=== PATIENT | female | born 1950 | race Caucasian/White ===

== ENCOUNTER → 2018-03-20 | Outpatient (CLI) | payer MEDICARE, OTHER ==
--- NOTE | 2018-03-21 08:00 | MR ---
EXAMINATION TYPE: MR lumbar spine wo/w con DATE OF EXAM: 03/20/2018 3:58 PM COMPARISON: NONE HISTORY: LBP, BLE radic x years, prev surgery CONTRAST: The patient was injected with 11 mL intravenous Gadavist contrast. Multiplanar, MultiSpin echo imaging of the lumbar spine was performed. T12-L1: Severe disc desiccation. Disc herniation. Focal area of decreased signal posterior to the L1 vertebral segment to the left of midline measures approximately 1.1 x 0.8 cm and demonstrates periphe ral enhancement. This may reflect sequestered disc material. Central stenosis is noted at this level. L1-L2: Severe disc desiccation. Posterior disc bulge effaces the ventral thecal sac. Constriction of the thecal sac without overt stenosis at this time. Mild bilateral foraminal encroachment. Ventral sp ondylosis. Degenerative endplate marrow change. L2-L3: Severe disc desiccation. Grade 1 retrolisthesis measuring 7 mm of L2 on L3. Posterior disc bul ge. Pedicular screws are present resulting in streak artifact limiting evaluation. There is evidence of central stenosis moderate in degree. L3-L4: Postoperative changes of fusion. Pedicular screws are in place. Metallic artifact limits evalu ation. No evidence for recurrent or residual disease. No central stenosis. Foramina are poorly evalua hsarla. L4-L5: Postoperative changes of fusion. Mild retrolisthesis of L4 and L5 measuring 3.5 mm. No evidenc e for central stenosis. No recurrent or residual disc herniation identified. Pedicular screws with th e magnetic susceptibility artifact. L5-S1: Postoperative changes of fusion. Pedicular screws in place. Anterolisthesis of L5 on S1 measur ing 8.3 mm. No evidence for recurrent or residual disc herniation. No central stenosis. Ventral spond ylosis. Lumbar segments are intact. No paraspinal masses are identified. Conus medullaris has a normal appe arance. IMPRESSION: 1. Extensive postsurgical changes of fusion with alignment as discussed above. 2. Central stenosis at T12-L1 and L1-L2. Sequestered disc material is difficult to exclude posterior and towards the left at the L1 level. See above.
== END | disposition home or self-care (01) ==
LOC: RADMRIMAIN 14:50
PROVIDERS: ATTEND Family Medicine
DX: M48.05 Spinal stenosis, thoracolumbar region (principal); G89.4 Chronic pain syndrome
CPT/HCPCS: 72158; A9581

== ENCOUNTER → 2018-06-17 | Outpatient (CLI) | payer MEDICARE, OTHER ==
[2018-05-19 14:33] VITALS: BMI 39.6
[2018-06-17 13:25] VITALS: BP 147/80; PULSE 74; RESP 18; TEMP 98.1
--- NOTE | 2018-06-17 14:00 | P.CONS ---
History of Present Illness - Reason for Consult Consult date: 06/17/18 - Chief Complaint Lower back and legs pain - History of Present Illness This is a 68-year-old female with history of multiple back surgeries with a total of 5 on the lumbar spine. The patient has chronic lower back pain with radiation to the lower extremities down to both calves. This pain got worse since March of this year. She does have history of urinary incontinence and weakness in the lower extremities. The pain also wakes her up at night and she takes 4 pills of [place] 10 every day for this pain. The pain gets worse with any activity especially walking. This pain has been limiting her activities significantly. 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 She also takes Plavix for peripheral vascular disease. The patient failed to respond to physical therapy previously she did receive interventional pain procedures before which helped her temporarily. Review of Systems Constitutional: Reports weight gain Cardiovascular: Reports leg edema Respiratory: Reports dyspnea Genitourinary: Reports mixed incontinence Musculoskeletal: Reports as per HPI Past Medical History Past Medical History: Blood Disorder, COPD, Diabetes Mellitus, GERD/Reflux, Hyperlipidemia, Hypertension Additional Past Medical History / Comment(s): BACK PAIN, DDD, HX anemia, History of Any Multi-Drug Resistant Organisms: None Reported Past Surgical History: Appendectomy, Back Surgery, Bowel Resection, Cholecystectomy, Hysterectomy, Joint Replacement, Orthopedic Surgery Additional Past Surgical History / Comment(s): 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, 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, HAS METAL IN BACK, KRISTINE CATARACTS, KRISTINE HIP REPLACEMENTS, KRISTINE HANDS TRIGGER FINGER SX'S Past Anesthesia/Blood Transfusion Reactions: No Reported Reaction Past Psychological History: Depression Smoking Status: Current every day smoker Past Alcohol Use History: None Reported Additional Past Alcohol Use History / Comment(s): SMOKES 1 PPD FROM AGE 20 1970 Past Drug Use History: None Reported - Past Family History Mother Family Medical History: Cancer, Coronary Artery Disease (CAD) Additional Family Medical History / Comment(s): MOTHER HAD STOMACH CANCER Father Family Medical History: Coronary Artery Disease (CAD), Diabetes Mellitus Brother(s) Family Medical History: Cancer Additional Family Medical History / Comment(s): BROTHER HAD PROSTATE CANCER Medications and Allergies Home Medications Medication Instructions Recorded Confirmed Type Albuterol Nebulized [Ventolin 2.5 mg INHALATION Q6H 06/17/14 06/17/18 History Nebulized] Albuterol Sulfate [Proair Hfa] 2 puff INHALATION Q6HR PRN 06/17/14 06/17/18 History Aspirin 81 mg PO DAILY 06/17/14 06/17/18 History Clopidogrel [Plavix] 75 mg PO DAILY 06/17/14 06/17/18 History DULoxetine HCL [Cymbalta] 60 mg PO DAILY 06/17/14 06/17/18 History Famotidine [Pepcid] 20 mg PO DAILY 06/17/14 06/17/18 History Furosemide [Lasix] 40 mg PO BID 06/17/14 06/17/18 History HYDROcodone/APAP 10-325MG [[place] 1 each PO Q4HR PRN 06/17/14 06/17/18 History 10-325] Insulin Aspart [NovoLOG Flexpen] 1 unit SQ [facility] 06/17/14 06/17/18 History Insulin Detemir [Levemir Flexpen] 50 unit SQ 06/17/14 06/17/18 History Metolazone [Zaroxolyn] 2.5 mg PO DAILY 06/17/14 06/17/18 History Metoprolol Tartrate [Lopressor] 100 mg PO BID 06/17/14 06/17/18 History OLANZapine [ZyPREXA] 15 mg PO DAILY 06/17/14 06/17/18 History Potassium Chloride [Klor-Con 20] 20 meq PO TID 06/17/14 06/17/18 History Simvastatin [Zocor] 40 mg PO HS 06/17/14 06/17/18 History Solifenacin Succinate [Vesicare] 5 mg PO DAILY 06/17/14 06/17/18 History lamoTRIgine [LaMICtal] 150 mg PO DAILY 06/17/14 06/17/18 History rOPINIRole HCL [Requip] 2 mg PO BID 06/17/14 06/17/18 History Pregabalin [Lyrica] 25 mg PO BID 06/17/18 06/17/18 History Allergies Allergy/AdvReac Type Severity Reaction Status Date / Time buprenorphine HCl Allergy Unknown Verified 06/17/18 13:06 [From Buprenex] codeine Allergy Unknown Verified 07/24/18 13:06 latex Allergy Unknown Verified 06/17/18 13:06 morphine Allergy Unknown Verified 06/17/18 13:06 Penicillins Allergy Unknown Verified 06/17/18 13:06 prochlorperazine maleate Allergy Unknown Verified 06/17/18 13:06 [From Compazine] prochlorperazine edisylate AdvReac STOMACH Verified 06/17/18 13:06 [From Compazine] PAIN ivp dye Allergy Unknown Uncoded 06/17/18 13:06 Physical Exam Vitals: Vital Signs Temp Pulse Resp BP Pulse Ox 06/17/18 13:16 98.1 F 74 18 147/80 94 L Intake and Output 06/16/18 06/17/18 06/17/18 22:59 06:59 14:59 Other: Weight 104.326 kg - Constitutional General appearance: morbidly obese - EENT Eyes: PERRLA - Respiratory Respiratory: bilateral: CTA - Cardiovascular Rhythm: regular Heart sounds: normal: S1, S2 - Neurologic Neurologic: CNII-XII intact - Musculoskeletal Neuro exam of the lower extremities showed decreased muscle strength to 4 out of 5 in general. Mid tarsal amputation of the left foot and big toe amputation on the right foot. Erythema in the left leg below the knee level. Swelling in both legs with pitting edema. Straight leg raising test positive at 45 bilaterally. Deep tendon reflexes decreased but symmetrical and she has intact ankle reflexes bilaterally. She has well-healed scar from her previous back surgery. Tenderness is positive bilaterally in the lumbar and lower thoracic paravertebral musculature/ Decreased range of motion of the lumbar spine with more pain with flexion than with extension. The patient was not able to lie on her back because of her pain and that's why I did not do Carlos Eduardo's test, however she has no tenderness around the sacroiliac joints. - Psychiatric Psychiatric: A&O x's 3, appropriate affect, intact judgment & insight Assessment and Plan Assessment: This is a 68-year-old morbidly obese female with multiple comorbidities including diabetes, COPD, peripheral vascular disease. The patient had amputations on both feet due to her peripheral vascular disease rather than her diabetic neuropathy. She has lumbar failed back surgery syndrome. Severe lumbar disc desiccation and degeneration above the surgical level. Failed to respond to physical therapy previously. Chronic urinary incontinence. Tobacco abuse Plan: The patient may benefit from getting caudal epidural steroid injection with lysis of adhesions the future however I asked the patient to check with her physician about the safety of holding her Plavix for 7-10 days before the procedure. She also may be a candidate for spinal cord stimulation, however her chronic treatment with Plavix would put her at high risk for spinal hematoma . The patient was encouraged to quit smoking. We we will schedule the patient for the above-mentioned procedure if it's okay with her primary care physician to hold the Plavix for 7-10 days. I thank you for the consultation.
== END | disposition home or self-care (01) ==
LOC: PNWHC3 05-21 13:00
PROVIDERS: ATTEND Anesthesiology
DX: M96.1 Postlaminectomy syndrome, not elsewhere classified (principal); E66.01 Morbid (severe) obesity due to excess calories; J44.9 Chronic obstructive pulmonary disease, unspecified; E11.51 Type 2 diabetes mellitus with diabetic peripheral angiopathy without gangrene; Z89.432 Acquired absence of left foot; Z89.431 Acquired absence of right foot; R32 Unspecified urinary incontinence; F17.200 Nicotine dependence, unspecified, uncomplicated; Z79.899 Other long term (current) drug therapy; Z79.891 Long term (current) use of opiate analgesic; Z79.4 Long term (current) use of insulin; Z88.5 Allergy status to narcotic agent; Z91.040 Latex allergy status; Z88.0 Allergy status to penicillin; Z88.8 Allergy status to other drugs, medicaments and biological substances; Z91.041 Radiographic dye allergy status
CPT/HCPCS: 99211

== ENCOUNTER 2018-07-02 06:48 | Day surgery (SDC) | payer MEDICARE, OTHER ==
[2018-06-25 13:53] VITALS: BMI 39.6
[~2018-07-02 06:48] MED LIST: LACTATED RINGERS 1,000 ML IV SCH
[2018-07-02 07:35] VITALS: TEMP 98
[2018-07-02 07:39] LABS: Glucose,Whole Blood 119 mg/dL (75-99)
[2018-07-02] MEDS ORDERED: LIDOCAINE 1% 20 ML VIAL (10MG/ML) FOR IV START INTRADERMA ONE (07:42)
--- NOTE | 2018-07-02 08:10 | P.PCN ---
Date of Procedure: 07/02/18 Procedure(s) Performed: PREOPERATIVE DIAGNOSIS: Lumbar post laminectomy syndrome. POSTOPERATIVE DIAGNOSIS: Lumbar post laminectomy syndrome. PROCEDURE: 1. Caudal epidural steroid injection under fluoroscopic guidance. ANESTHESIA: Local with 1% lidocaine 5ml for subcutaneous infiltrations and IV versed 2 mg ,and fentanyl 100 mcg EBL: None. PROCEDURE INDICATION: The patient with neuropathic pain radiating distally returns for caudal epidural steroid injection. PROCEDURE DESCRIPTION: The patient was seen and identified in the preoperative area. Risks, benefits, complications, and alternatives were discussed with the patient. The patient agreed to proceed with the procedure and signed the consent. IV was started, and vital signs were stable. Patient was taken to the OR and time out was completed. The patient was placed in the prone position on procedure table and a pillow was placed under the abdomen to reduce lumbar lordosis. The lumbosacral area was prepped and draped in the usual sterile fashion. Critical pause was taken. Vital signs were closely monitored during the procedure. Using lateral fluoroscopy the anterior-posterior plates of the sacrum were identified and the skin and deeper tissues corresponding into sacrococcygeal ligament were anesthetized using approximately 3 mL of 1% lidocaine. Then under fluoroscopy, a 3-1/2-inch 20-gauge Tuohy epidural needle was guided through the sacrococcygeal ligament, and into the epidural space. Again after negative aspiration for CSF, blood, and with no paresthesias, Depo medrole 40mg, 2ml of 1% preservative free Lidocaine with 6 ml of preservative free normal saline. Needle was withdrawn intact. Skin was cleansed, and bandage was applied. Epidurogram was not done because patient had ALLERGY to IVP dye COMPLICATIONS: None DISPOSITION / PLANS: The patient was placed in a supine position and transferred to the recovery area in a stable condition for observation and was discharged from the recovery room after meeting discharge criteria. Home discharge instructions given to the patient by the staff. The patient was reexamined prior to discharge. The patient will schedule a follow up in the clinic in 2-4 weeks.
[2018-07-02] MEDS ORDERED: IV FLUID CONTINUATION 1,000 ML IV ONE (08:18)
[2018-07-02 08:25] VITALS: RESP 18
[2018-07-02 09:23] VITALS: BP 147/67
[2018-07-02 10:07] VITALS: PULSE 72
--- NOTE | 2018-07-02 10:19 | FL ---
Fluoroscopy HISTORY: Pain 4 seconds fluoroscopy time supplied to the referring clinician. 2 intraoperative C-arm images docume nt the procedure. See dictated report from anesthesia.
== END 2018-07-02 11:34 | disposition home or self-care (01) ==
LOC: ORPAIN 06:48
PROVIDERS: ATTEND Specialist
DX: M96.1 Postlaminectomy syndrome, not elsewhere classified (principal); M54.16 Radiculopathy, lumbar region; I10 Essential (primary) hypertension; E11.9 Type 2 diabetes mellitus without complications; Z91.040 Latex allergy status; Z91.041 Radiographic dye allergy status; Z88.5 Allergy status to narcotic agent; Z88.0 Allergy status to penicillin; Z79.02 Long term (current) use of antithrombotics/antiplatelets
CPT/HCPCS: 62323; J2250; J1030; J3010

== ENCOUNTER 2018-07-16 07:27 | Day surgery (SDC) | payer MEDICARE, OTHER ==
[2018-07-09 16:32] VITALS: BMI 39.9
[2018-07-16] MEDS ORDERED: LIDOCAINE 1% 20 ML VIAL (10MG/ML) FOR IV START INTRADERMA ONE (08:21)
[2018-07-16 08:29] VITALS: TEMP 97
[2018-07-16 08:34] LABS: Glucose,Whole Blood 114 mg/dL (75-99)
--- NOTE | 2018-07-16 09:12 | P.PCN ---
Date of Procedure: 07/16/18 Description of Procedure: Procedure(s) Performed: PREOPERATIVE DIAGNOSIS: Lumbar post laminectomy syndrome. POSTOPERATIVE DIAGNOSIS: Lumbar post laminectomy syndrome. PROCEDURE: 1. Caudal epidural steroid injection under fluoroscopic guidance. 2. Epidural Lysis of adhesions ANESTHESIA: Local with 1% lidocaine 3 ml for subcutaneous infiltrations and IV conscious sedation versed 2 mg ,and fentanyl 100 mcg EBL: None. PROCEDURE INDICATION: The patient with neuropathic pain radiating distally returns for caudal epidural steroid injection. PROCEDURE DESCRIPTION: The patient was seen and identified in the preoperative area. Risks, benefits, complications, and alternatives were discussed with the patient. The patient agreed to proceed with the procedure and signed the consent. IV was started, and vital signs were stable. Patient was taken to the OR and time out was completed. The patient was placed in the prone position on procedure table and a pillow was placed under the abdomen to reduce lumbar lordosis. The lumbosacral area was prepped and draped in the usual sterile fashion. Critical pause was taken. Vital signs were closely monitored during the procedure. Using lateral fluoroscopy the anterior-posterior plates of the sacrum were identified and the skin and deeper tissues corresponding into sacrococcygeal ligament were anesthetized using approximately 3 mL of 1% lidocaine. Then under fluoroscopy, a 3-1/2-inch 20-gauge Tuohy epidural needle was guided through the sacrococcygeal ligament, and into the epidural space. A Rac catheter was inserted through the 2 we epidural needle for confirmation of proper placement considering IV dye could not be used. Once confirmation was confirmed multiple passes were made with the Rac catheter and lysis of adhesions was performed. Again after negative aspiration for CSF, blood, and with no paresthesias, Depo medrole 40mg, 2ml of 1% preservative free Lidocaine with 6 ml of preservative free normal saline. Needle was withdrawn intact. Skin was cleansed, and bandage was applied. Epidurogram was not done because patient had ALLERGY to IVP dye COMPLICATIONS: None DISPOSITION / PLANS: The patient was placed in a supine position and transferred to the recovery area in a stable condition for observation and was discharged from the recovery room after meeting discharge criteria. Home discharge instructions given to the patient by the staff. The patient was reexamined prior to discharge. The patient will schedule a follow up in the clinic in 2-4 weeks.
[2018-07-16] MEDS ORDERED: IV FLUID CONTINUATION 1,000 ML IV ONE ×2 (09:17)
[2018-07-16 09:46] VITALS: BP 138/78; PULSE 88; RESP 20
--- NOTE | 2018-07-16 10:13 | FL ---
EXAMINATION TYPE: FL guided pain mgmt statistic DATE OF EXAM: 07/16/2018 HISTORY: Flouroscopy time 24 seconds of fluoroscopy provided. IMPRESSION: 1. Fluoroscopy time.
== END 2018-07-16 10:00 | disposition home or self-care (01) ==
LOC: ORPAIN 07:27
PROVIDERS: ATTEND Anesthesiology
DX: M96.1 Postlaminectomy syndrome, not elsewhere classified (principal); G89.29 Other chronic pain; F17.210 Nicotine dependence, cigarettes, uncomplicated; E11.42 Type 2 diabetes mellitus with diabetic polyneuropathy; F32.9 Major depressive disorder, single episode, unspecified; J44.9 Chronic obstructive pulmonary disease, unspecified; K21.9 Gastro-esophageal reflux disease without esophagitis; E78.5 Hyperlipidemia, unspecified; I10 Essential (primary) hypertension; Z82.49 Family history of ischemic heart disease and other diseases of the circulatory system; Z90.49 Acquired absence of other specified parts of digestive tract; Z96.643 Presence of artificial hip joint, bilateral; Z79.82 Long term (current) use of aspirin; Z79.02 Long term (current) use of antithrombotics/antiplatelets; Z79.899 Other long term (current) drug therapy; Z79.4 Long term (current) use of insulin; Z88.5 Allergy status to narcotic agent; Z88.0 Allergy status to penicillin; Z88.8 Allergy status to other drugs, medicaments and biological substances; Z91.041 Radiographic dye allergy status; Z91.040 Latex allergy status; Z89.411 Acquired absence of right great toe; Z89.432 Acquired absence of left foot; E11.51 Type 2 diabetes mellitus with diabetic peripheral angiopathy without gangrene; M51.36 Other intervertebral disc degeneration, lumbar region
CPT/HCPCS: 62264; J2250; J3301; J3010; C1894; 62323

== ENCOUNTER → 2018-07-23 | Outpatient (CLI) | payer MEDICARE, OTHER ==
[2018-07-23 11:57] LABS: Anisocytosis Slight; HCT 44.5 % (34.0-46.0); HGB 13.6 gm/dL (11.4-16.0); Hypochromasia Slight; MCHC 30.7 g/dL (31.0-37.0); MCV 91.2 fL (80.0-100.0); Mean Platelet Volume 6.4; Platelet Count 298 k/uL (150-450); RBC 4.87 m/uL (3.80-5.40); WBC 10.5 k/uL (3.8-10.6)
[2018-07-23 12:15] LABS: Potassium 4.7 mmol/L (3.5-5.1)
== END | disposition home or self-care (01) ==
LOC: LABPAT 11:37
PROVIDERS: ATTEND Internal Medicine Interventional Cardiology
DX: Z01.812 Encounter for preprocedural laboratory examination (principal); I70.213 Atherosclerosis of native arteries of extremities with intermittent claudication, bilateral legs; I10 Essential (primary) hypertension; E78.1 Pure hyperglyceridemia
CPT/HCPCS: 36415; 80051; 82565; 84520; 85027

== ENCOUNTER → 2018-08-19 | Outpatient (CLI) | payer MEDICARE, OTHER ==
[2018-08-19 14:12] VITALS: BP 132/84; PULSE 73; RESP 18
--- NOTE | 2018-08-19 14:46 | P.PAINPG ---
Subjective Progress Note Date: 08/19/18 This is a 68 years old female with a chronic history of severe low back pain diagnosed with failed back surgery syndrome, we have done: Epidural steroid injection with lysis of epidural adhesions patient reported she had 0 benefits from the injection, he continued to have severe low back pain with radiating to the buttock area bilaterally, and also she is having mid back pain with radiation to the anterior abdominal wall , pain is severe constant interfering with her quality of life, also patient feels that her lower extremity weakness because of this intensity of the pain, she denies any fever or night sweats, but she has swelling and bluish discoloration in the lower extremity patient was evaluated by the audio visual tech, and according to the patient ultrasound was negative for any clot, also patient was started on antibiotics to treat cellulitis in the lower extremity, and there was minimal improvement, and the bluish discoloration of the lower extremity She continues to use Lyrica 25 mg twice a day and [place] 10/320 q 6 hours getting prescription refills from her primary care Objective - Vital Signs Vital signs: Vital Signs Temp Pulse 73 08/19/18 14:03 Resp 18 08/19/18 14:03 BP 132/84 08/19/18 14:03 Pulse Ox 92 L 08/19/18 14:03 Intake & Output 08/18/18 08/19/18 08/19/18 18:59 06:59 18:59 Weight 108.862 kg - Exam Physical Examinations : 1-Constitutiona : Cooperative , not in acute distress . 2-HEENT : nech ; supple , no Lymphadenopathy , normal thyroid size . eyes : no ptosis , no icterus , no photophobia . ENT : normal of hearing , normal oropharynx , no Thrush . 3- Respiratory : Chest clear to auscultations Bilaterally , no wheezing , no Rhonchi . 4- Cardiovascular : regular rate and rhythem , S1 , S2 , no S3 , no S4. 5- Gastrointestinal : abdomen soft no tenderness , bowel sounds , no organomegally . 6- Genitourinary : Defferred . 7- neurologic : Cranial nerve II to XII intact , no focal neurological deffecit . 8-psychatric : alert , oriented X 3 , appropriate affect , intact judgment and insight . 9-Lymphatic : no Lymphadenopathy . 10- musculoskeltal : Lumber spine moter stegnth lower extremities ,thigh and legs 5/5 Right side , 5/5 Left side deep tendon reflexes : normal Knee Jerk , normal ankle Jerk positive lumber facet Loading Test Range of motion of the lumbar spine Flexion 30 degrees, extension 10 degrees strait leg raising test , positive at 30 degree Fabere test positive RT and positive LT . Sever tenderness over the Sacroiliac joint on the R and L sides Assessment and Plan Plan: Assessment and plan= Chronic severe low back pain secondary to failed back surgery syndrome, L2 - 3 , L3- 4 lumbar radiculitis , bilateral sacroiliitis Patient had no benefit after Caudal Epidural steroid injections under fluoroscopy guidance. Patient could benefit from bilateral sacroiliac joint steroid injections under fluoroscopy guidance procedure risk and benefits and alternatives discussed with the patient she agreed with proceeding , patient should continue her current medications Lyrica 25 mg twice a day, [place] 10/325 prescription from primary care Time with Patient: Less than 30 PQRS Measure Charge Sheet Measure #130: Documentation of Current Meds in Medical Chart: Patient's medications documented in chart Measure #226: Tobacco Use: Screen & Cessation Intervention: Pt screened for tobacco use AND intervention given Measure #111: Pneumonia Vaccination: Pneumococcal vaccine administered or previously received Measure #47: Advance Care Plan: Advance care planning discussed & documented, pt chose/unable to give Measure #412: Opioid Treatment Agreement: No documentation of signed opioid treatment agreement Measure #408: Opioid Therapy Follow-up Evaluation: Patient had NO f/u eval minimum every 3 months during opioid therapy Measure #317: Preventitive Care & Scrn High Bld Press & F/U: Normal blood pressure, f/u not required Measure #128: Body Mass Index (BMI) Screening & Follow-up: BMI documented ABOVE normal parameters - f/u documented Measure #131: Pain Assessment & Follow-up: Pain positive & plan documented, Follow-up scheduled Measure #431: Unhealthy Alcohol Use Preventative Care & Scrn: Patient not identified as an unhealthy alcohol user PQRS Narrative: Smoking Status Current every day smoker Do You Want the Pneumonia Vaccine Up to Date Vaccine AT THIS TIME? Blood Pressure 132/84 Pain Intensity [Bilateral 8 Lower Back] Scale Used Numeric (1 - 10) Hx Alcohol Use (MH) No Home Medications: Ambulatory Orders Aspirin 81 mg PO DAILY 06/17/14 Clopidogrel [Plavix] 75 mg PO DAILY 06/17/14 DULoxetine HCL [Cymbalta] 60 mg PO DAILY 06/17/14 Furosemide [Lasix] 40 mg PO DAILY 06/17/14 HYDROcodone/APAP 10-325MG [[place] 10-325] 1 each PO Q6HR PRN 06/17/14 Metoprolol Tartrate [Lopressor] 100 mg PO BID 06/17/14 OLANZapine [ZyPREXA] 15 mg PO DAILY 06/17/14 Potassium Chloride [Klor-Con 20] 20 meq PO TID 06/17/14 Simvastatin [Zocor] 40 mg PO HS 06/17/14 lamoTRIgine [LaMICtal] 100 mg PO DAILY 06/17/14 rOPINIRole HCL [Requip] 0.25 mg PO BID 06/17/14 Dicyclomine [Bentyl] 20 mg PO QID 06/17/18 Fluticasone Nasal Lewis [Flonase Nasal Lewis] 2 spray EA NOSTRIL DAILY 06/17/18 Insulin Glargine [Lantus] 70 units SQ QAM 06/17/18 Loratadine [Claritin] 10 mg PO DAILY 06/17/18 Montelukast [Singulair] 10 mg PO DAILY 06/17/18 Omeprazole [PriLOSEC] 20 mg PO DAILY 06/17/18 Pregabalin [Lyrica] 25 mg PO BID 06/17/18 amLODIPine [Norvasc] 10 mg pe PO BID 06/17/18 sitaGLIPtin [Januvia] 100 mg PO DAILY 06/17/18 Fluticasone/Vilanterol [Breo Ellipta 100-25 Mcg Inhaler] 1 inhalation PO HS 12/12 Insulin Aspart [NovoLOG] 10 units SQ TID-W/MEALS 06/25/18 Controlled Substance Measures - Controlled Substance Measures Is patient prescribed a controlled substance at discharge?: No When asked, does pt state using other controlled substances?: No If prescribed controlled substance>3 days was MAPS reviewed?: No If Rx opioid, was Start Talking consent form obtained?: No If opioid is for acute pain is fill amount 7 days or less?: No Was information provided regarding opioid addiction?: No
== END ==
LOC: PNWHC3 13:36
PROVIDERS: ATTEND Specialist
DX: G89.29 Other chronic pain (principal); M96.1 Postlaminectomy syndrome, not elsewhere classified; M54.16 Radiculopathy, lumbar region; M46.1 Sacroiliitis, not elsewhere classified; F17.200 Nicotine dependence, unspecified, uncomplicated; Z79.899 Other long term (current) drug therapy; Z79.891 Long term (current) use of opiate analgesic; Z79.82 Long term (current) use of aspirin; Z79.4 Long term (current) use of insulin
CPT/HCPCS: 99211

== ENCOUNTER → 2018-09-15 | Day surgery (SDC) | payer MEDICARE, OTHER ==
[2018-09-11 11:10] VITALS: BMI 39.9
[~2018-09-15] MED LIST changes: -LACTATED RINGERS 1,000 ML IV SCH; +SODIUM CHLORIDE 0.9% 500 ML 500 ML IV SCH
[2018-09-15 08:31] VITALS: RESP 18; TEMP 98
[2018-09-15 08:38] LABS: Glucose,Whole Blood 107 mg/dL (75-99)
--- NOTE | 2018-09-15 09:11 | P.PCN ---
Date of Procedure: 09/15/18 Procedure(s) Performed: Procedure= bilateral sacral iliac joints steroid injection under fluoroscopy guidance Preoperative diagnosis= 1- Failed back surgery syndrome lumbar area 3-lumbar facet arthropathy Postoperative diagnosis= same as preoperative diagnosis Condition= stable Anesthesia= moderate sedation with intravenous Versed 2 mg , and fentanyl 100 micrograms and local infiltration with lidocaine 1% 4 mL Indication for the procedure= patient complaining of low back pain , examination was positive for severe tenderness over the sacroiliac joints bilaterally and patient diagnosed with sacroiliitis, for this reason he/ she was good candidate for sacroiliac joint steroid injection. Description of the procedure= procedure risk and benefits discussed with the patient, including but not limited, risk of infection and bleeding, and ALLERGIC reaction to the medication and not complete pain relief and patient agreed with the preceding patient taken to the operating room, placed in prone position or standard monitors applied to the patient then after induction of anesthesia back prepped with chlorhexidine 3 times , Then under strict sterile technique, first I did the right sacroiliac joint the which was identified under fluoroscopy guidance been local infiltration of the skin and subcu interstitial with lidocaine 1% then 22-gauge Quincke Needle advanced slowly under fluoroscopy and placed in the right sacroiliac joint needle placement confirmed with AP and oblique and lateral view and after appropriate needle placement confirmed and after negative aspiration, or heme , then Ropivacaine 0.5% 3 mL, and 20 mg of Kenalog mixed together and injected in the right sacroiliac joint after negative aspiration patient tolerated the procedure well without any complication. Then the left sacroiliac joint steroid injection done under strict sterile technique local infiltration of the skin and subcu interstitial at the location of the left sacroiliac joint then a 22-gauge Quincke Needle advanced slowly under fluoroscopy time placed in the left sacroiliac joint, needle placement confirmed with AP and oblique and lateral view then after appropriate needle placement confirmed and after negative aspiration 0.5% Marcaine 3 mL and 20 mg of Kenalog injected in the left sacroiliac joint after negative aspiration patient tolerated the procedure well that any complications and she will follow up in clinic 3 weeks
--- NOTE | 2018-09-15 09:33 | FL ---
EXAMINATION TYPE: FL guided pain mgmt statistic DATE OF EXAM: 09/15/2018 HISTORY: Flouroscopy time 5 seconds of fluoroscopy provided. IMPRESSION: 1. Fluoroscopy time.
[2018-09-15 09:34] VITALS: PULSE 76
[2018-09-15 09:39] VITALS: BP 130/63
== END ==
LOC: ORPAIN 07:36
PROVIDERS: ATTEND Specialist
DX: M96.1 Postlaminectomy syndrome, not elsewhere classified (principal); M46.96 Unspecified inflammatory spondylopathy, lumbar region; I25.10 Atherosclerotic heart disease of native coronary artery without angina pectoris; I10 Essential (primary) hypertension; J44.9 Chronic obstructive pulmonary disease, unspecified; E11.9 Type 2 diabetes mellitus without complications; Z88.5 Allergy status to narcotic agent; Z88.0 Allergy status to penicillin; Z91.041 Radiographic dye allergy status; Z91.040 Latex allergy status; Z79.02 Long term (current) use of antithrombotics/antiplatelets
CPT/HCPCS: J2250; J1030; J3301; G0260

== ENCOUNTER → 2018-10-21 | Outpatient (CLI) | payer MEDICARE, OTHER ==
--- NOTE | 2018-10-21 13:02 | CT ---
EXAMINATION TYPE: CT soft tissue neck w con DATE OF EXAM: 10/21/2018 COMPARISON: None HISTORY: Swelling to left side of neck marked by BB. CT DLP: 678.4 mGycm CONTRAST: CT scan of the neck is performed with IV Contrast, patient injected with 100 mL of Isovue M300. Contrast enhanced CT of the neck was performed from the skull base through the lung apices. BB marker is placed at the site of clinical concern which corresponds to the left parotid gland. AIRWAY: The supraglottic, glottic, and subglottic portions of the airway appear patent and free of mass. SALIVARY GLANDS: At the site of clinical concern which corresponds to the lower pole of the parotid gland other is a lipoma measuring 3.2 x 2.9 cm. No intraparotid mass is appreciated at this time. The submandibular glands are free of mass or inflammatory process. THYROID GLAND: No nodules or masses seen. LYMPH NODES: No adenopathy seen greater than 1cm. LUNG APICES: No nodule or mass is seen. OTHER: Vascular structures are patent. No significant degenerative change of the cervical spine. N o abscess seen. IMPRESSION: 1. At the site of clinical concern which corresponds to the lower pole of the parotid gland there is an extraparotid lipoma noted. No solid masses appreciated. No evidence for adenopathy.
== END ==
LOC: RADCTMAIN 10:55
PROVIDERS: ATTEND Family Medicine
DX: R59.0 Localized enlarged lymph nodes (principal)
CPT/HCPCS: 82565; 84520; 70491; 36415; Q9967

== ENCOUNTER 2019-02-05 18:54 | Inpatient (IN) | payer MEDICARE, OTHER ==
[2019-02-05] MEDS ORDERED: SODIUM CHLORIDE 0.9% 500 ML 500 ML IV STA (19:12)
[2019-02-05] MEDS ORDERED: ONDANSETRON 4 MG/2 ML VIAL IVP STA (19:12)
[2019-02-05] MEDS ORDERED: MAG HYDROX/AL HYDROX/SIMETH 30 ML, HYOSCYAMINE ELIXIR 10 ML, CIMETIDINE HCL 300 MG, LID... PO STA ×4 (19:24)
[2019-02-05] MEDS ORDERED: MORPHINE SULFATE 4 MG/ML SYRINGE IVP PRN (19:24)
--- NOTE | 2019-02-05 19:27 | ED ---
General Adult HPI - General Chief complaint: Abdominal Pain Stated complaint: abdominal pain/weakness/dizziness Time Seen by Provider: 02/05/19 19:12 Source: patient Mode of arrival: ambulatory Limitations: no limitations - History of Present Illness Initial comments: Dictation was produced using [employer] dictation software. please excuse any grammatical, word or spelling errors. Chief Complaint: 68-year-old female past medical history of COPD, diabetes, dyslipidemia, chronic back pain presents with epigastric abdominal pain. History of Present Illness: 68-year-old female. She presents today with progressive epigastric abdominal pain. Reports that her symptoms have slowly progressed until today. Patient states that earlier today she tried to eat, and after the fourth bite she experience severe abdominal pain. States that she has continuous pain. Denies any history of peptic ulcer disease. No vomiting however she does feel slightly nauseated. No diarrhea. She had a normal bowel movement yesterday. Patient states that when she is not eating she does feel some symptoms however her symptoms are severely exacerbated with eating. Denies any fever, chills, constitutional symptoms. He does report 8 pound weight loss unintentionally sick very to lack of eating. The ROS documented in this emergency department record has been reviewed and confirmed by me. Those systems with pertinent positive or negative responses have been documented in the HPI. All other systems are other negative and/or noncontributory. PHYSICAL EXAM: General Impression: Alert and oriented x3, acute distress secondary to pain HEENT: Normocephalic atraumatic, extra-ocular movements intact, pupils equal and reactive to light bilaterally, mucous membranes moist. Cardiovascular: Heart regular rate and rhythm, S1&S2 audible, no murmurs, rubs or gallops Chest: Lungs clear to auscultation bilaterally, no rhonchi, no wheeze, no rales Abdomen: Bowel sounds present, abdomen soft, midline abdominal scar, mild epigastric tenderness to palpation non-distended, no organomegaly Musculoskeletal: Pulses present and equal in all extremities, no peripheral edema Motor: no focal deficits noted Neurological: CN II-XII grossly intact, no focal motor or sensory deficits noted Skin: Intact with no visualized rashes Psych: Normal affect and mood ED course: 68yo female presents with chief complaint of epigastric abdominal pain. She does report prandial pain. All signs upon arrival are within acceptable limits. Patient denies any dark stools or blood in her stools. No vomiting. Laboratory evaluation obtained. Leukocytosis of 13.9, hemoglobin 16.3. Coag panel unremarkable. Metabolic panel shows no acute findings. Urinalysis negative. Patient given GI cocktail with slight improvement of symptoms however she does feel that her symptoms are persistent. She still feels fairly uncomfortable. Patient given IV analgesia. At this point patient's symptoms are likely secondary to symptomatic is stridorous versus peptic ulcer disease. Her decision-making with patient that she would benefit from upper endoscopy. She would prefer to be admitted observation with GI consultation. Patient started on Protonix. EKG interpretation: Ventricular rate 64, normal sinus rhythm,. Interval 154, care is 82, QTc 435. No MA prolongation, no QTC prolongation, There is T-wave inversion seen on precordial leads not apparent on most recent excessive EKG of 06/17/2014. - Related Data Home Medications Medication Instructions Recorded Confirmed Clopidogrel [Plavix] 75 mg PO DAILY 06/17/14 10/06/18 DULoxetine HCL [Cymbalta] 60 mg PO DAILY 06/17/14 10/06/18 Furosemide [Lasix] 40 mg PO DAILY 06/17/14 10/06/18 HYDROcodone/APAP 10-325MG [[place] 1 each PO Q6HR PRN 06/17/14 10/06/18 10-325] Metoprolol Tartrate [Lopressor] 100 mg PO BID 06/17/14 10/06/18 OLANZapine [ZyPREXA] 15 mg PO DAILY 06/17/14 10/06/18 Potassium Chloride [Klor-Con 20] 40 meq PO BID 06/17/14 10/06/18 Simvastatin [Zocor] 40 mg PO HS 06/17/14 10/06/18 lamoTRIgine [LaMICtal] 100 mg PO DAILY 06/17/14 10/06/18 rOPINIRole HCL [Requip] 0.25 mg PO BID 06/17/14 10/06/18 Dicyclomine [Bentyl] 20 mg PO QID 06/17/18 10/06/18 Fluticasone Nasal [place] [Flonase 2 spray EA NOSTRIL DAILY 06/17/18 10/06/18 Nasal [place]] Insulin Glargine [Lantus] 70 units SQ QAM 06/17/18 10/06/18 Loratadine [Claritin] 10 mg PO DAILY 06/17/18 10/06/18 Montelukast [Singulair] 10 mg PO DAILY 06/17/18 10/06/18 Omeprazole [PriLOSEC] 20 mg PO DAILY 06/17/18 10/06/18 Pregabalin [Lyrica] 25 mg PO BID 06/17/18 10/06/18 amLODIPine [Norvasc] 10 mg PO BID 06/17/18 10/06/18 sitaGLIPtin [Januvia] 100 mg PO DAILY 06/17/18 10/06/18 Fluticasone/Vilanterol [Breo 1 inhalation PO HS 06/25/18 10/06/18 Ellipta 100-25 Mcg Inhaler] Insulin Aspart [NovoLOG] 10 units SQ TID-W/MEALS 06/25/18 10/06/18 Allergies Allergy/AdvReac Type Severity Reaction Status Date / Time buprenorphine HCl Allergy Rash/Hives Verified 02/05/19 20:27 [From Buprenex] Iodinated Contrast- Oral and Allergy Rash/Hives Verified 02/05/19 20:27 IV Dye latex Allergy skin Verified 02/05/19 20:27 cracks and bleeds Penicillins Allergy Anaphylaxis Verified 02/05/19 20:27 prochlorperazine maleate Allergy Anaphylaxis Verified 02/05/19 20:27 [From Compazine] codeine AdvReac Nausea & Verified 02/05/19 20:27 Vomiting morphine AdvReac Abdominal Verified 02/05/19 20:27 Pain prochlorperazine edisylate AdvReac Anaphylaxis Verified 02/05/19 20:27 [From Compazine] ivp dye Allergy Rash/Hives Uncoded 02/05/19 19:10 Review of Systems ROS Statement: Those systems with pertinent positive or pertinent negative responses have been documented in the HPI. ROS Other: All systems not noted in ROS Statement are negative. 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, HAS METAL IN BACK, KRISTINE CATARACTS, KRISTINE HIP REPLACEMENTS, KRISTINE HANDS TRIGGER FINGER SX'S; Shoulder Arthroscopy; has Fx R upper arm Past Anesthesia/Blood Transfusion Reactions: No Reported Reaction Past Psychological History: Depression Smoking Status: Current every day smoker - Past Family History Mother Family Medical History: Cancer, Coronary Artery Disease (CAD) Additional Family Medical History / Comment(s): MOTHER HAD STOMACH CANCER Father Family Medical History: Coronary Artery Disease (CAD), Diabetes Mellitus Brother(s) Family Medical History: Cancer Additional Family Medical History / Comment(s): BROTHER HAD PROSTATE CANCER General Exam Limitations: no limitations Course Vital Signs 02/05/19 19:07 Temperature 97.9 F Pulse Rate 66 Respiratory 16 Rate Blood Pressure 162/80 O2 Sat by Pulse 95 Oximetry Medical Decision Making - Lab Data Result diagrams: 02/05/19 19:34 02/05/19 19:34 Lab Results 02/05/19 02/05/19 02/05/19 Range/Units 19:34 19:34 19:34 WBC 13.9 H (3.8-10.6) k/uL RBC 6.22 H (3.80-5.40) m/uL Hgb 16.4 H (11.4-16.0) gm/dL Hct 52.3 H (34.0-46.0) % MCV 84.1 (80.0-100.0) fL MCH 26.3 (25.0-35.0) pg MCHC 31.3 (31.0-37.0) g/dL RDW 15.3 (11.5-15.5) % Plt Count 377 (150-450) k/uL Neutrophils % 72 % Lymphocytes % 19 % Monocytes % 6 % Eosinophils % 2 % Basophils % 0 % Neutrophils # 10.1 H (1.3-7.7) k/uL Lymphocytes # 2.6 (1.0-4.8) k/uL Monocytes # 0.8 (0-1.0) k/uL Eosinophils # 0.2 (0-0.7) k/uL Basophils # 0.1 (0-0.2) k/uL Hypochromasia Slight PT (9.0-12.0) sec INR (<1.2) Sodium 141 (137-145) mmol/L Potassium 4.9 (3.5-5.1) mmol/L Chloride 99 (98-107) mmol/L Carbon Dioxide 32 H (22-30) mmol/L Anion Gap 10 mmol/L BUN 34 H (7-17) mg/dL Creatinine 1.11 H (0.52-1.04) mg/dL Est GFR (CKD-EPI)AfAm 59 (>60 ml/min/1.73 sqM) Est GFR (CKD-EPI)NonAf 51 (>60 ml/min/1.73 sqM) Glucose 104 H (74-99) mg/dL Plasma Lactic Acid Jaleel 1.2 (0.7-2.0) mmol/L Calcium 9.9 (8.4-10.2) mg/dL Total Bilirubin 0.4 (0.2-1.3) mg/dL AST 16 (14-36) U/L ALT 18 (9-52) U/L Alkaline Phosphatase 73 (38-126) U/L Total Protein 7.8 (6.3-8.2) g/dL Albumin 4.4 (3.5-5.0) g/dL Lipase 198 (23-300) U/L Urine Color Urine Appearance (Clear) Urine pH (5.0-8.0) Ur Specific [place] (1.001-1.035) Urine Protein (Negative) Urine Glucose (UA) (Negative) Urine Ketones (Negative) Urine Blood (Negative) Urine Nitrite (Negative) Urine Bilirubin (Negative) Urine Urobilinogen (<2.0) mg/dL Ur Leukocyte Esterase (Negative) Urine RBC (0-5) /hpf Urine WBC (0-5) /hpf Ur Squamous Epith Cells (0-4) /hpf Urine Mucus (None) /hpf Urine Opiates Screen (NotDetected) Ur Oxycodone Screen (NotDetected) Urine Methadone Screen (NotDetected) Ur Propoxyphene Screen (NotDetected) Ur Barbiturates Screen (NotDetected) U Tricyclic Antidepress (NotDetected) Ur Phencyclidine Scrn (NotDetected) Ur Amphetamines Screen (NotDetected) U Methamphetamines Scrn (NotDetected) U Benzodiazepines Scrn (NotDetected) Urine Cocaine Screen (NotDetected) U Marijuana (THC) Screen (NotDetected) 02/05/19 02/05/19 02/05/19 Range/Units 19:34 19:34 19:34 WBC (3.8-10.6) k/uL RBC (3.80-5.40) m/uL Hgb (11.4-16.0) gm/dL Hct (34.0-46.0) % MCV (80.0-100.0) fL MCH (25.0-35.0) pg MCHC (31.0-37.0) g/dL RDW (11.5-15.5) % Plt Count (150-450) k/uL Neutrophils % % Lymphocytes % % Monocytes % % Eosinophils % % Basophils % % Neutrophils # (1.3-7.7) k/uL Lymphocytes # (1.0-4.8) k/uL Monocytes # (0-1.0) k/uL Eosinophils # (0-0.7) k/uL Basophils # (0-0.2) k/uL Hypochromasia PT 10.3 (9.0-12.0) sec INR 1.0 (<1.2) Sodium (137-145) mmol/L Potassium (3.5-5.1) mmol/L Chloride (98-107) mmol/L Carbon Dioxide (22-30) mmol/L Anion Gap mmol/L BUN (7-17) mg/dL Creatinine (0.52-1.04) mg/dL Est GFR (CKD-EPI)AfAm (>60 ml/min/1.73 sqM) Est GFR (CKD-EPI)NonAf (>60 ml/min/1.73 sqM) Glucose (74-99) mg/dL Plasma Lactic Acid Jaleel (0.7-2.0) mmol/L Calcium (8.4-10.2) mg/dL Total Bilirubin (0.2-1.3) mg/dL AST (14-36) U/L ALT (9-52) U/L Alkaline Phosphatase (38-126) U/L Total Protein (6.3-8.2) g/dL Albumin (3.5-5.0) g/dL Lipase (23-300) U/L Urine Color Yellow Urine Appearance Clear (Clear) Urine pH 7.0 (5.0-8.0) Ur Specific [place] 1.024 (1.001-1.035) Urine Protein Trace H (Negative) Urine Glucose (UA) Negative (Negative) Urine Ketones Negative (Negative) Urine Blood Negative (Negative) Urine Nitrite Negative (Negative) Urine Bilirubin Negative (Negative) Urine Urobilinogen 2.0 (<2.0) mg/dL Ur Leukocyte Esterase Trace H (Negative) Urine RBC 2 (0-5) /hpf Urine WBC 5 (0-5) /hpf Ur Squamous Epith Cells 2 (0-4) /hpf Urine Mucus Rare H (None) /hpf Urine Opiates Screen Detected H (NotDetected) Ur Oxycodone Screen Not Detected (NotDetected) Urine Methadone Screen Not Detected (NotDetected) Ur Propoxyphene Screen Not Detected (NotDetected) Ur Barbiturates Screen Not Detected (NotDetected) U Tricyclic Antidepress Not Detected (NotDetected) Ur Phencyclidine Scrn Not Detected (NotDetected) Ur Amphetamines Screen Not Detected (NotDetected) U Methamphetamines Scrn Not Detected (NotDetected) U Benzodiazepines Scrn Not Detected (NotDetected) Urine Cocaine Screen Not Detected (NotDetected) U Marijuana (THC) Screen Not Detected (NotDetected) Disposition Clinical Impression: Abdominal pain Disposition: ADMITTED IP TO THIS [facility] Condition: Fair Referrals: Mitzi Sadler DO [Primary Care Provider] - 1-2 days Decision Time: 20:35
[2019-02-05] MEDS ORDERED: PANTOPRAZOLE 40 MG/10 ML VIAL IVP ONE (19:46)
[2019-02-05 19:55] LABS: Basophils # (A) 0.1 k/uL (0-0.2); Basophils % (A) 0 %; Eosinophils # (A) 0.2 k/uL (0-0.7); Eosinophils % (A) 2 %; HCT 52.3 % (34.0-46.0); HGB 16.4 gm/dL (11.4-16.0); Hypochromasia Slight; Lymphocytes # (A) 2.6 k/uL (1.0-4.8); Lymphocytes % (A) 19 %; MCH 26.3 pg (25.0-35.0); MCHC 31.3 g/dL (31.0-37.0); MCV 84.1 fL (80.0-100.0); Mean Platelet Volume 6.6; Monocytes # (A) 0.8 k/uL (0-1.0); Monocytes % (A) 6 %; Neutrophils # (A) 10.1 k/uL (1.3-7.7); Neutrophils % (A) 72 %; Platelet Count 377 k/uL (150-450); RBC 6.22 m/uL (3.80-5.40); RDW 15.3 % (11.5-15.5); WBC 13.9 k/uL (3.8-10.6)
[2019-02-05 20:01] LABS: Appearance,Urine Clear (Clear); Bilirubin,Urine Negative (Negative); Blood,Urine Negative (Negative); Color,Urine Yellow; Glucose,Urine (UA) Negative (Negative); Ketones,Urine Negative (Negative); Leukocyte Esterase,Urine Trace (Negative); Mucus,Urine Rare /hpf; Nitrite,Urine Negative (Negative); Protein,Urine Trace (Negative); RBC,Urine 2 /hpf (0-5); Specific Gravity,Urine 1.024 (1.001-1.035); Squamous Epithelial Cell,Urine 2 /hpf (0-4)
[2019-02-05 20:06] LABS: Albumin 4.4 g/dL (3.5-5.0); Calcium 9.9 mg/dL (8.4-10.2); Potassium 4.9 mmol/L (3.5-5.1); Total Bilirubin 0.4 mg/dL (0.2-1.3); Total Protein 7.8 g/dL (6.3-8.2)
[2019-02-05 20:07] LABS: Prothrombin Time 10.3 sec (9.0-12.0)
[2019-02-05 20:20] LABS: Amphetamine Screen,Urine Not Detected (NotDetected); Barbiturate Screen,Urine Not Detected (NotDetected); Benzodiazepines Screen,Urine Not Detected (NotDetected); Cocaine Screen,Urine Not Detected (NotDetected); Methadone Screen, Urine Not Detected (NotDetected); Opiate Screen,Urine Detected (NotDetected); Oxycodone Screen, Urine Not Detected (NotDetected); Phencyclidine Screen,Urine Not Detected (NotDetected); Tricyclic Antidepressant,Urine Not Detected (NotDetected); Urn Cannabinoid Scrn Not Detected (NotDetected)
[2019-02-05] MEDS ORDERED: NALOXONE 0.4 MG/ML 1 ML VIAL IV PRN (20:35)
[2019-02-05] MEDS ORDERED: ACETAMINOPHEN TAB 325 MG TAB PO PRN (20:35)
--- NOTE | 2019-02-05 21:13 | XR ---
EXAMINATION TYPE: XR abdomen acute w cxr DATE OF EXAM: 02/05/2019 COMPARISON: 06/19/2014 HISTORY: Abdominal pain TECHNIQUE: Chest x-ray with supine and upright abdomen FINDINGS: There is no heart failure nor confluent pneumonic infiltrate. Costophrenic angles are clear. There is gastric sleeve noted. There is fusion surgery in the lower lumbar spine. There is laminectomy defect . There is no sign of intestinal obstruction or pneumoperitoneum. Fecal pattern is normal. There are no pathologic calcifications. There is no evidence of an abdominal mass. IMPRESSION: Nonacute abdomen. No active cardiopulmonary disease. No change.
[2019-02-05] MEDS: SODIUM CHLORIDE 0.9% 1,000 ML IV SCH (22:58)
[2019-02-06] MEDS: PREGABALIN 75 MG CAP PO SCH ×3 (00:25→20:35)
[2019-02-06] MEDS: METOPROLOL TARTRATE 50 MG TAB PO SCH ×3 (00:25→20:37)
[2019-02-06] MEDS: MONTELUKAST 10 MG TAB PO SCH ×2 (00:25→20:34)
[2019-02-06] MEDS: HYDROcodone/APAP 10-325MG 1 EACH TAB PO PRN ×4 (00:26→21:15)
[2019-02-06] MEDS: POTASSIUM CHLORIDE ER 10 MEQ TAB.ER.PRT PO SCH ×4 (00:26→20:34)
[2019-02-06] MEDS: ONDANSETRON 4 MG/2 ML VIAL IVP PRN (00:28)
[2019-02-06] MEDS: DICYCLOMINE 20 MG TAB PO SCH ×5 (01:13→20:33)
[2019-02-06] MEDS: SODIUM CHLORIDE 0.9% 1,000 ML IV SCH ×2 (05:53→20:33)
[2019-02-06] MEDS ORDERED: INSULIN ASPART (NovoLOG) 100 UNIT/ML VIAL SQ SCH (07:30)
[2019-02-06 07:51] LABS: Glucose,Whole Blood 56 mg/dL (75-99)
[2019-02-06 08:10] LABS: Glucose,Whole Blood 80 mg/dL (75-99)
[2019-02-06] MEDS ORDERED: INSULIN DETEMIR (LEVEMIR) 100 UNIT/ML SYR SQ SCH (09:00)
[2019-02-06] MEDS ORDERED: PANTOPRAZOLE 40 MG/10 ML VIAL IV SCH (09:00)
[2019-02-06 09:05] LABS: Basophils % (A) 0 %; Eosinophils # (A) 0.3 k/uL (0-0.7); Eosinophils % (A) 2 %; HCT 51.5 % (34.0-46.0); HGB 14.9 gm/dL (11.4-16.0); Hypochromasia Slight; Lymphocytes # (A) 3.1 k/uL (1.0-4.8); Lymphocytes % (A) 24 %; MCH 25.1 pg (25.0-35.0); MCV 86.6 fL (80.0-100.0); Mean Platelet Volume 7.3; Monocytes # (A) 0.8 k/uL (0-1.0); Monocytes % (A) 6 %; Neutrophils # (A) 8.5 k/uL (1.3-7.7); Neutrophils % (A) 66 %; Platelet Count 300 k/uL (150-450); RBC 5.94 m/uL (3.80-5.40); RDW 15.4 % (11.5-15.5); WBC 12.9 k/uL (3.8-10.6)
[2019-02-06 09:18] LABS: Albumin 3.4 g/dL (3.5-5.0); Calcium 8.8 mg/dL (8.4-10.2); Potassium 4.3 mmol/L (3.5-5.1); Total Bilirubin 0.5 mg/dL (0.2-1.3); Total Protein 6.2 g/dL (6.3-8.2)
[2019-02-06] MEDS: METOLAZONE 5 MG TAB PO SCH (09:52)
[2019-02-06] MEDS: DULoxetine HCL 60 MG CAPSULE.DR PO SCH (09:52)
[2019-02-06] MEDS: OLANZapine 5 MG TAB PO SCH (09:52)
[2019-02-06] MEDS: MELOXICAM 7.5 MG TAB PO SCH (09:52)
[2019-02-06] MEDS: FUROSEMIDE 40 MG TAB PO SCH (09:53)
--- NOTE | 2019-02-06 10:43 | P.HPIM ---
History of Present Illness H&P Date: 02/06/19 Is a 68-year-old female patient of Dr. Sadler. Patient presented to the hospital with complaints of abdominal pain with nausea for 1 week. Patient reports that the pain is epigastric and occurs intermittently. Patient denies constipation. Patient reports last bowel movement was 2 days ago and was normal. Denies any signs of blood. Patient denies any alcohol intake. Patient has a past medical history of COPD, diabetes mellitus, GERD, hyperlipidemia, hypertension, musculoskeletal disorder, chronic back pain, peripheral vascular disease, nicotine dependence and depression. Acute abdominal series completed in ER showing nonacute abdomen. No active cardiopulmonary disease. No change. EKG completed showing normal sinus rhythm nonspecific T-wave abnormality. Patient's creatinine slightly elevated at 1.11 and bun 34. Patient's white blood cell count also elevated at 13.9. Patient does reports she's been on Medrol Dosepak for a fall and injury to hip and Levaquin for upper respiratory infection. At this time patient is still complaining of upper abdominal pain. GI services have been consulted. Patient denies chest pain or shortness of breath. Patient denies vomiting or diarrhea. Patient denies any urinary burning or frequency Review of Systems Please refer to HPI otherwise unremarkable 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, HAS METAL IN BACK, KRISTINE CATARACTS, KRISTINE HIP REPLACEMENTS, KRISTINE HANDS TRIGGER FINGER SX'S; Shoulder Arthroscopy; has Fx R upper arm Past Anesthesia/Blood Transfusion Reactions: No Reported Reaction Past Psychological History: Depression Smoking Status: Current every day smoker Past Alcohol Use History: None Reported Additional Past Alcohol Use History / Comment(s): SMOKES 1 PPD FROM AGE [id number] Past Drug Use History: None Reported - Past Family History Mother Family Medical History: Cancer, Coronary Artery Disease (CAD) Additional Family Medical History / Comment(s): MOTHER HAD STOMACH CANCER Father Family Medical History: Coronary Artery Disease (CAD), Diabetes Mellitus Brother(s) Family Medical History: Cancer Additional Family Medical History / Comment(s): BROTHER HAD PROSTATE CANCER Medications and Allergies Home Medications Medication Instructions Recorded Confirmed Type Clopidogrel [Plavix] 75 mg PO DAILY 06/17/14 02/05/19 History DULoxetine HCL [Cymbalta] 60 mg PO DAILY 06/17/14 02/05/19 History Furosemide [Lasix] 40 mg PO DAILY 06/17/14 02/05/19 History HYDROcodone/APAP 10-325MG [[place] 1 tab PO Q6HR PRN 06/17/14 02/05/19 History 10-325] Metoprolol Tartrate [Lopressor] 100 mg PO BID 06/17/14 02/05/19 History OLANZapine [ZyPREXA] 15 mg PO DAILY 06/17/14 02/05/19 History Simvastatin [Zocor] 40 mg PO HS 06/17/14 02/05/19 History rOPINIRole HCL [Requip] 2 mg PO BID 06/17/14 02/05/19 History Dicyclomine [Bentyl] 20 mg PO QID 06/17/18 02/05/19 History Insulin Glargine [Lantus] 70 units SQ QAM 06/17/18 02/05/19 History Loratadine [Claritin] 10 mg PO DAILY 06/17/18 02/05/19 History Montelukast [Singulair] 10 mg PO HS 06/17/18 02/05/19 History Omeprazole [PriLOSEC] 20 mg PO DAILY 06/17/18 02/05/19 History sitaGLIPtin [Januvia] 100 mg PO DAILY 06/17/18 02/05/19 History Celecoxib [CeleBREX] 100 mg PO DAILY 02/05/19 02/05/19 History Fenofibrate Nanocrystallized 145 mg PO DAILY 02/05/19 02/05/19 History [Fenofibrate] INSULIN LISPRO (HumaLOG) [HumaLOG] 10 unit SQ TID-W/MEALS 02/05/19 02/05/19 History Levofloxacin [Levaquin] 500 mg PO DAILY 02/05/19 02/05/19 History Metolazone [Zaroxolyn] 5 mg PO DAILY 02/05/19 02/05/19 History Potassium Chloride [K-Tab ER] 10 meq PO TID 02/05/19 02/05/19 History Pregabalin [Lyrica] 75 mg PO BID 02/05/19 02/05/19 History Umeclidinium Brm/Vilanterol Tr 1 puff INHALATION RT-DAILY 02/05/19 02/05/19 History [Anoro Ellipta 62.5-25 Mcg INH] methylPREDNISolone [Medrol Dose See Taper PO DIRECTED 02/05/19 02/05/19 History Pack] Allergies Allergy/AdvReac Type Severity Reaction Status Date / Time buprenorphine HCl Allergy Rash/Hives Verified 02/05/19 20:27 [From Buprenex] Iodinated Contrast- Oral and Allergy Rash/Hives Verified 02/05/19 20:27 IV Dye latex Allergy skin Verified 02/05/19 20:27 cracks and bleeds Penicillins Allergy Anaphylaxis Verified 02/05/19 20:27 prochlorperazine maleate Allergy Anaphylaxis Verified 02/05/19 20:27 [From Compazine] codeine AdvReac Nausea & Verified 02/05/19 20:27 Vomiting morphine AdvReac Abdominal Verified 02/05/19 20:27 Pain prochlorperazine edisylate AdvReac Anaphylaxis Verified 02/05/19 20:27 [From Compazine] ivp dye Allergy Rash/Hives Uncoded 02/05/19 19:10 Physical Exam Vitals: Vital Signs Temp Pulse Pulse Resp BP BP Pulse Ox 02/06/19 07:54 97.4 F L 64 18 155/84 91 L 02/06/19 04:00 61 18 02/06/19 00:00 61 18 02/05/19 21:59 98.5 F 61 18 145/81 95 02/05/19 21:40 97.8 F 61 18 153/83 94 L 02/05/19 19:07 97.9 F 66 16 162/80 95 Intake and Output 02/05/19 02/06/19 02/06/19 22:59 06:59 14:59 Other: Voiding Method Toilet # Voids 1 Weight 104.326 kg Head normocephalic Neck supple Lungs clear to auscultation bilaterally no wheezing or crackles Heart regular rate and rhythm S1-S2, no rub or gallop Abdomen is soft tender to palpation to epigastric area. Extremities no edema Neuro alert and orientated to 3 Results CBC & Chem 7: 02/06/19 08:46 02/06/19 08:46 Labs: Abnormal Lab Results - Last 24 Hours (Table) 02/05/19 02/05/19 02/05/19 Range/Units 19:34 19:34 19:34 WBC 13.9 H (3.8-10.6) k/uL RBC 6.22 H (3.80-5.40) m/uL Hgb 16.4 H (11.4-16.0) gm/dL Hct 52.3 H (34.0-46.0) % MCHC (31.0-37.0) g/dL Neutrophils # 10.1 H (1.3-7.7) k/uL Carbon Dioxide 32 H (22-30) mmol/L BUN 34 H (7-17) mg/dL Creatinine 1.11 H (0.52-1.04) mg/dL Glucose 104 H (74-99) mg/dL POC Glucose (mg/dL) (75-99) mg/dL AST (14-36) U/L Total Protein (6.3-8.2) g/dL Albumin (3.5-5.0) g/dL Urine Protein Trace H (Negative) Ur Leukocyte Esterase Trace H (Negative) Urine Mucus Rare H (None) /hpf Urine Opiates Screen (NotDetected) 02/05/19 02/06/19 02/06/19 Range/Units 19:34 07:49 08:46 WBC 12.9 H (3.8-10.6) k/uL RBC 5.94 H (3.80-5.40) m/uL Hgb (11.4-16.0) gm/dL Hct 51.5 H (34.0-46.0) % MCHC 29.0 L (31.0-37.0) g/dL Neutrophils # 8.5 H (1.3-7.7) k/uL Carbon Dioxide (22-30) mmol/L BUN (7-17) mg/dL Creatinine (0.52-1.04) mg/dL Glucose (74-99) mg/dL POC Glucose (mg/dL) 56 L (75-99) mg/dL AST (14-36) U/L Total Protein (6.3-8.2) g/dL Albumin (3.5-5.0) g/dL Urine Protein (Negative) Ur Leukocyte Esterase (Negative) Urine Mucus (None) /hpf Urine Opiates Screen Detected H (NotDetected) 02/06/19 Range/Units 08:46 WBC (3.8-10.6) k/uL RBC (3.80-5.40) m/uL Hgb (11.4-16.0) gm/dL Hct (34.0-46.0) % MCHC (31.0-37.0) g/dL Neutrophils # (1.3-7.7) k/uL Carbon Dioxide (22-30) mmol/L BUN 27 H (7-17) mg/dL Creatinine (0.52-1.04) mg/dL Glucose (74-99) mg/dL POC Glucose (mg/dL) (75-99) mg/dL AST 13 L (14-36) U/L Total Protein 6.2 L (6.3-8.2) g/dL Albumin 3.4 L (3.5-5.0) g/dL Urine Protein (Negative) Ur Leukocyte Esterase (Negative) Urine Mucus (None) /hpf Urine Opiates Screen (NotDetected) Thrombosis Risk Factor Assmnt - Choose All That Apply Any of the Below Risk Factors Present?: Yes Each Factor Represents 1 point: Obesity (BMI >25) Other Risk Factors: Yes Each Risk Factor Represents 2 Points: Age 61-74 years Other congenital or acquired thrombophilia - If yes, enter type in comment: No Thrombosis Risk Factor Assessment Total Risk Factor Score: 3 Thrombosis Risk Factor Assessment Level: Moderate Risk Assessment and Plan Assessment: 1. Abdominal pain with nausea. Acute abdominal series completed showing nonacute abdomen. No active cardiopulmonary disease. No change. GI services have been consulted. Patient started on Protonix. Normal saline at 100 3. Acute kidney injury. Admission creatinine 1.11. Repeat creatinine improving to 0.94 continue fluids at 100 4. History of cholecystectomy 5. History of diabetes mellitus. Home insulin on hold due to patient being nothing by mouth. Will order sliding scale coverage at this time 6. Leukocytosis. Initial white blood cell elevated at 13.9. Patient reports that she has been on Medrol Dosepak due to injury to hip. Patient also getting treated with Levaquin outpatient for upper respiratory infection. UA showing trace amount of leukocyte Estrace. Patient denies symptoms at this time. Will order urine culture 7. History of GERD 8. History of hyperlipidemia 9. History of chronic back pain 10. History of depression. Home meds resumed 11. History of nicotine dependence. Patient educated greater than 3 minutes smoking cessation. Nicotine patch will be ordered DVT prophylaxis SCDs until GI evaluation. GI prophylaxis Protonix Time with Patient: Greater than 30 (Greater than 60% of the total time spent in counseling and coordination of care. I performed an examination of the patient and discussed their management with the Nurse Practitioner. I have reviewed the Nurse Practitioner's notes and agree with the documented findings and plan of care)
[2019-02-06 11:52] LABS: Glucose,Whole Blood 80 mg/dL (75-99)
--- NOTE | 2019-02-06 14:14 | P.CONS ---
History of Present Illness - Reason for Consult Consult date: 02/06/19 abdominal pain Requesting physician: Ezio Rosa - Chief Complaint epigastric abdominal pain nausea vomiting - History of Present Illness 68-year-old female past medical history laparoscopic gastric banding, PVD, diabetes mellitus, COPD, GERD, obesity, hypertension, hyperlipidemia, chronic back pain, nicotine cigarette dependency, clostridium difficile colitis, colonic diverticulosis, and depression. History is difficult to obtain patient received pain medication and is drowsy. She presents with intractable epigastric pain worsens after eating x 2-3 days, nausea without emesis diarrhea hematemesis hematochezia or melena. No alcohol. No excessive usage of NSAIDs or aspirin. Patient recently was placed on a Medrol Dosepak for a fall injury to the hip and Levaquin for an upper respiratory infection. CT abdomen and pelvis ordered results are pending. Acute abdominal series no acute findings. White count 12.9-13.9. Hemoglobin 14.9. Platelet 300. BUN 3 4. Crit 1.1. LFTs amylase lipase within normal limits. No history of this type of pain. No history of recent EGD. No history of peptic ulcer disease or GI bleed. Review of Systems Constitutional: Denies fever, chills, sweats, weight gain, or loss. HEENT: Negative for migraines, blurred vision or loss, earaches, drainage, tinnitus, oral mucosal lesions, dysphagia, or odynophagia. CARDIAC: Negative for chest pain, arrhythmias, or palpitation. RESPIRATORY: Negative for shortness of breath, hemoptysis, cough, or sputum production. GI: See HPI for pertinent findings. : Negative for hematuria, urgency, frequency, polyuria, or dysuria. GYNc: Negative vaginal discharge. MUSCULOSKELETAL: Negative for muscle aches, swelling, arthritis, and arthralgias. NEUROLOGIC: Negative for stroke or TIA. ENDOCRINE: Negative for thyroid problems. SKIN: Negative for rash or itching. 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, HAS METAL IN BACK, KRISTINE CATARACTS, KRISTINE HIP REPLACEMENTS, KRISTINE HANDS TRIGGER FINGER SX'S; Shoulder Arthroscopy; has Fx R upper arm Past Anesthesia/Blood Transfusion Reactions: No Reported Reaction Past Psychological History: Depression Smoking Status: Current every day smoker Past Alcohol Use History: None Reported Additional Past Alcohol Use History / Comment(s): SMOKES 1 PPD FROM AGE 20 1970 Past Drug Use History: None Reported - Past Family History Mother Family Medical History: Cancer, Coronary Artery Disease (CAD) Additional Family Medical History / Comment(s): MOTHER HAD STOMACH CANCER Father Family Medical History: Coronary Artery Disease (CAD), Diabetes Mellitus Brother(s) Family Medical History: Cancer Additional Family Medical History / Comment(s): BROTHER HAD PROSTATE CANCER Medications and Allergies Home Medications Medication Instructions Recorded Confirmed Type Clopidogrel [Plavix] 75 mg PO DAILY 06/17/14 02/05/19 History DULoxetine HCL [Cymbalta] 60 mg PO DAILY 06/17/14 02/05/19 History Furosemide [Lasix] 40 mg PO DAILY 06/17/14 02/05/19 History HYDROcodone/APAP 10-325MG [[place] 1 tab PO Q6HR PRN 06/17/14 02/05/19 History 10-325] Metoprolol Tartrate [Lopressor] 100 mg PO BID 06/17/14 02/05/19 History OLANZapine [ZyPREXA] 15 mg PO DAILY 06/17/14 02/05/19 History Simvastatin [Zocor] 40 mg PO HS 06/17/14 02/05/19 History rOPINIRole HCL [Requip] 2 mg PO BID 06/17/14 02/05/19 History Dicyclomine [Bentyl] 20 mg PO QID 06/17/18 02/05/19 History Insulin Glargine [Lantus] 70 units SQ QAM 06/17/18 02/05/19 History Loratadine [Claritin] 10 mg PO DAILY 06/17/18 02/05/19 History Montelukast [Singulair] 10 mg PO HS 06/17/18 02/05/19 History Omeprazole [PriLOSEC] 20 mg PO DAILY 06/17/18 02/05/19 History sitaGLIPtin [Januvia] 100 mg PO DAILY 06/17/18 02/05/19 History Celecoxib [CeleBREX] 100 mg PO DAILY 02/05/19 02/05/19 History Fenofibrate Nanocrystallized 145 mg PO DAILY 02/05/19 02/05/19 History [Fenofibrate] INSULIN LISPRO (HumaLOG) [HumaLOG] 10 unit SQ TID-W/MEALS 02/05/19 02/05/19 History Levofloxacin [Levaquin] 500 mg PO DAILY 02/05/19 02/05/19 History Metolazone [Zaroxolyn] 5 mg PO DAILY 02/05/19 02/05/19 History Potassium Chloride [K-Tab ER] 10 meq PO TID 02/05/19 02/05/19 History Pregabalin [Lyrica] 75 mg PO BID 02/05/19 02/05/19 History Umeclidinium Brm/Vilanterol Tr 1 puff INHALATION RT-DAILY 02/05/19 02/05/19 History [Anoro Ellipta 62.5-25 Mcg INH] methylPREDNISolone [Medrol Dose See Taper PO DIRECTED 02/05/19 02/05/19 History Pack] Allergies Allergy/AdvReac Type Severity Reaction Status Date / Time buprenorphine HCl Allergy Rash/Hives Verified 02/05/19 20:27 [From Buprenex] Iodinated Contrast- Oral and Allergy Rash/Hives Verified 02/05/19 20:27 IV Dye latex Allergy skin Verified 02/05/19 20:27 cracks and bleeds Penicillins Allergy Anaphylaxis Verified 02/05/19 20:27 prochlorperazine maleate Allergy Anaphylaxis Verified 02/05/19 20:27 [From Compazine] codeine AdvReac Nausea & Verified 02/05/19 20:27 Vomiting morphine AdvReac Abdominal Verified 02/05/19 20:27 Pain prochlorperazine edisylate AdvReac Anaphylaxis Verified 02/05/19 20:27 [From Compazine] ivp dye Allergy Rash/Hives Uncoded 02/05/19 19:10 Physical Exam Vitals: Vital Signs Temp Pulse Pulse Resp BP BP Pulse Ox 02/06/19 07:54 97.4 F L 64 18 155/84 91 L 02/06/19 04:00 61 18 02/06/19 00:00 61 18 02/05/19 21:59 98.5 F 61 18 145/81 95 02/05/19 21:40 97.8 F 61 18 153/83 94 L 02/05/19 19:07 97.9 F 66 16 162/80 95 Intake and Output 02/05/19 02/06/19 02/06/19 22:59 06:59 14:59 Other: Voiding Method Toilet # Voids 1 Weight 104.326 kg General appearance: The patient is lethargic sleepy but answers questions appropriately, oriented, in no acute distress. HET: Head is normocephalic and atraumatic. Pupils are equal and reactive. Oropharynx is clear without lesions. Neck: Supple without lymphadenopathy. Trachea midline. Heart: S1 S2. Regular rate and rhythm. Lungs: No crackles or wheezes are heard. Abdomen: Soft, mild tenderness epigastric, nondistended with bowel sounds. No peritoneal signs. No palpable organomegaly or masses. Extremities: Normal skin color and turgor. No cyanosis, rash, ulceration, clubbing, or edema. Radial and pedal pulses are 2/4 bilaterally. Neurological: No focal deficits. Strength and sensation are grossly intact. Results CBC & Chem 7: 02/06/19 08:46 02/06/19 08:46 Labs: Abnormal Lab Results - Last 24 Hours (Table) 02/05/19 02/05/19 02/05/19 Range/Units 19:34 19:34 19:34 WBC 13.9 H (3.8-10.6) k/uL RBC 6.22 H (3.80-5.40) m/uL Hgb 16.4 H (11.4-16.0) gm/dL Hct 52.3 H (34.0-46.0) % MCHC (31.0-37.0) g/dL Neutrophils # 10.1 H (1.3-7.7) k/uL Carbon Dioxide 32 H (22-30) mmol/L BUN 34 H (7-17) mg/dL Creatinine 1.11 H (0.52-1.04) mg/dL Glucose 104 H (74-99) mg/dL POC Glucose (mg/dL) (75-99) mg/dL AST (14-36) U/L Total Protein (6.3-8.2) g/dL Albumin (3.5-5.0) g/dL Urine Protein Trace H (Negative) Ur Leukocyte Esterase Trace H (Negative) Urine Mucus Rare H (None) /hpf Urine Opiates Screen (NotDetected) 02/05/19 02/06/19 02/06/19 Range/Units 19:34 07:49 08:46 WBC 12.9 H (3.8-10.6) k/uL RBC 5.94 H (3.80-5.40) m/uL Hgb (11.4-16.0) gm/dL Hct 51.5 H (34.0-46.0) % MCHC 29.0 L (31.0-37.0) g/dL Neutrophils # 8.5 H (1.3-7.7) k/uL Carbon Dioxide (22-30) mmol/L BUN (7-17) mg/dL Creatinine (0.52-1.04) mg/dL Glucose (74-99) mg/dL POC Glucose (mg/dL) 56 L (75-99) mg/dL AST (14-36) U/L Total Protein (6.3-8.2) g/dL Albumin (3.5-5.0) g/dL Urine Protein (Negative) Ur Leukocyte Esterase (Negative) Urine Mucus (None) /hpf Urine Opiates Screen Detected H (NotDetected) 02/06/19 Range/Units 08:46 WBC (3.8-10.6) k/uL RBC (3.80-5.40) m/uL Hgb (11.4-16.0) gm/dL Hct (34.0-46.0) % MCHC (31.0-37.0) g/dL Neutrophils # (1.3-7.7) k/uL Carbon Dioxide (22-30) mmol/L BUN 27 H (7-17) mg/dL Creatinine (0.52-1.04) mg/dL Glucose (74-99) mg/dL POC Glucose (mg/dL) (75-99) mg/dL AST 13 L (14-36) U/L Total Protein 6.2 L (6.3-8.2) g/dL Albumin 3.4 L (3.5-5.0) g/dL Urine Protein (Negative) Ur Leukocyte Esterase (Negative) Urine Mucus (None) /hpf Urine Opiates Screen (NotDetected) Abdominal x-ray: report reviewed (Dr. Yu) CT scan - abdomen: pending Assessment and Plan (1) Epigastric abdominal pain Narrative/Plan: 68-year-old female presents acute epigastric abdominal pain worsens after meals 2-3 days nausea without emesis bleeding or fever with history of lap band.Mild l eukocytosis with recent antibiotic usage and Solu-Medrol Dosepak for hip injury and upper respiratory infection. Differentials considered but not limited to peptic ulcer disease, gastritis, duodenitis, esophagitis. Underlying laparoscopic gastric banding pathology needs to kept in mind. Current Visit: Yes Status: Acute Code(s): R10.13 - EPIGASTRIC PAIN SNOMED Code(s): 14084918 (2) Hx of laparoscopic gastric banding Current Visit: Yes Status: Chronic Code(s): Z98.84 - BARIATRIC SURGERY STATUS SNOMED Code(s): 524367881 (3) Leukocytosis Current Visit: Yes Status: Acute Code(s): D72.829 - ELEVATED WHITE BLOOD CELL COUNT, UNSPECIFIED SNOMED Code(s): 775173403 Plan: 1. Computed tomography scan abdomen and pelvis r/o lap band pathology or other intra-abdominal pathology. 2. Protonix 40 mg twice daily. CBC monitoring. 3. Clear liquid diet. 4. Consideration for inpatient EGD based on CT findings and clinical course. We'll follow closely with you. Thank you for this kind referral and the opportunity to participate in the care of your patient. This consultation was discussed with Dr. Yu. The impression and plan of care have been directed as dictated.
[2019-02-06] MEDS: INSULIN ASPART (NovoLOG) 100 UNIT/ML VIAL SQ SCH ×3 (14:48→20:52)
--- NOTE | 2019-02-06 15:08 | CT ---
EXAMINATION TYPE: CT abdomen pelvis wo con DATE OF EXAM: 02/06/2019 COMPARISON: 06/17/2014 HISTORY: abdominal pain CT DLP: 1328 mGycm Automated exposure control for dose reduction was used. TECHNIQUE: Helical acquisition of images was performed from the lung bases through the pelvis. FINDINGS: LUNG BASES: No significant abnormality is appreciated. LIVER/GB: Gallbladder disease or surgically absent or significantly contracted. Unenhanced morphology of the liver is unremarkable. PANCREAS: No significant abnormality is seen. SPLEEN: No significant abnormality is seen. ADRENALS: No significant abnormality is seen. KIDNEYS: There is a suspected small exophytic right renal midpole cyst versus angiomyolipoma. No hydr onephrosis or nephrolithiasis of either kidney. FREE AIR: No free air is visualized ADENOPATHY: No greater than 1 cm short axis lymph nodes are seen within the abdomen or pelvis. Few p rominent left external iliac chain lymph nodes are seen although they contain a normal fatty hilum. REPRODUCTIVE ORGANS: Uterus appears surgically absent. URINARY BLADDER: No significant abnormality is seen. OSSEOUS STRUCTURES: Bilateral hip prostheses create extensive spray artifact and limited evaluation o f the pelvis. Postsurgical changes also seen of the lumbar spine with extensive multilevel degenerati ve disc disease of the thoracolumbar junction and grade 2 anterolisthesis of L4 on L5 that is surgica lly fixated. BOWEL: Orientation of the gastric lap band appears within normal limits. Diffuse gastric fold thicke piero likely relates to incomplete distention. No proximal esophageal dilatation is seen. Few colonic diverticula are present without pericolonic fat stranding. OTHER: Subcutaneous scar and granulation tissue is seen from prior midline surgical intervention. Rubio e subcutaneous fat stranding is nonspecific but could represent ecchymosis or fluid overload as it is seen both anteriorly and posteriorly such as on image 107. IMPRESSION: THE GASTRIC LAP BAND APPEARS APPROPRIATELY POSITIONED WITHOUT PROXIMAL ESOPHAGEAL DILATATION. DIFFUSE GASTRIC FOLD THICKENING LIKELY RELATES TO INCOMPLETE DISTENTION ALTHOUGH GASTRITIS SHOULD BE CONSIDE RED WELL.
[2019-02-06 15:38] VITALS: BMI 38.2
[2019-02-06] MEDS: methylPREDNISolone SOD SUCCI 125 MG/2 ML VIAL IV SCH (15:38)
[2019-02-06] MEDS: CLINDAMYCIN 150 MG CAP PO SCH ×2 (15:39→20:32)
[2019-02-06 16:43] LABS: Glucose,Whole Blood 47 mg/dL (75-99)
[2019-02-06 17:06] LABS: Glucose,Whole Blood 52 mg/dL (75-99)
[2019-02-06 17:15] LABS: Glucose,Whole Blood 95 mg/dL (75-99)
[2019-02-06 20:25] LABS: Glucose,Whole Blood 197 mg/dL (75-99)
[2019-02-06] MEDS: PANTOPRAZOLE 40 MG/10 ML VIAL IV SCH (20:41)
[2019-02-07] MEDS: methylPREDNISolone SOD SUCCI 125 MG/2 ML VIAL IV SCH ×4 (00:13→22:57)
[2019-02-07] MEDS: SODIUM CHLORIDE 0.9% 1,000 ML IV SCH ×3 (04:38→23:02)
[2019-02-07] MEDS: HYDROcodone/APAP 10-325MG 1 EACH TAB PO PRN ×3 (06:18→19:41)
[2019-02-07 06:49] LABS: Glucose,Whole Blood 192 mg/dL (75-99)
[2019-02-07] MEDS: DULoxetine HCL 60 MG CAPSULE.DR PO SCH (08:05)
[2019-02-07] MEDS: METOPROLOL TARTRATE 50 MG TAB PO SCH ×2 (08:05→19:37)
[2019-02-07] MEDS: PANTOPRAZOLE 40 MG/10 ML VIAL IV SCH ×2 (08:05→19:38)
[2019-02-07] MEDS: PREGABALIN 75 MG CAP PO SCH ×2 (08:06→19:37)
[2019-02-07] MEDS: POTASSIUM CHLORIDE ER 10 MEQ TAB.ER.PRT PO SCH ×3 (08:06→19:38)
[2019-02-07] MEDS: OLANZapine 5 MG TAB PO SCH (08:06)
[2019-02-07] MEDS: CLINDAMYCIN 150 MG CAP PO SCH ×3 (08:06→20:37)
[2019-02-07] MEDS: DICYCLOMINE 20 MG TAB PO SCH ×4 (08:07→20:37)
[2019-02-07] MEDS: MELOXICAM 7.5 MG TAB PO SCH (08:07)
[2019-02-07] MEDS: METOLAZONE 5 MG TAB PO SCH (08:07)
[2019-02-07] MEDS: INSULIN ASPART (NovoLOG) 100 UNIT/ML VIAL SQ SCH ×4 (08:07→22:15)
[2019-02-07] MEDS: NICOTINE 14MG/24HR PATCH TRANSDERM SCH (08:08)
[2019-02-07] MEDS: FUROSEMIDE 40 MG TAB PO SCH (08:10)
[2019-02-07 08:22] LABS: Basophils % (A) 0 %; Eosinophils # (A) 0.1 k/uL (0-0.7); Eosinophils % (A) 1 %; HCT 50.8 % (34.0-46.0); HGB 15.1 gm/dL (11.4-16.0); Hypochromasia Marked; Lymphocytes % (A) 11 %; MCH 25.8 pg (25.0-35.0); MCHC 29.7 g/dL (31.0-37.0); MCV 86.8 fL (80.0-100.0); Mean Platelet Volume 7.3; Monocytes # (A) 0.1 k/uL (0-1.0); Monocytes % (A) 2 %; Neutrophils # (A) 8.2 k/uL (1.3-7.7); Neutrophils % (A) 87 %; Platelet Count 311 k/uL (150-450); RBC 5.86 m/uL (3.80-5.40); RDW 15.2 % (11.5-15.5); WBC 9.5 k/uL (3.8-10.6)
[2019-02-07 08:36] LABS: Albumin 3.3 g/dL (3.5-5.0); Calcium 8.9 mg/dL (8.4-10.2); Potassium 4.1 mmol/L (3.5-5.1); Total Bilirubin 0.4 mg/dL (0.2-1.3); Total Protein 6.2 g/dL (6.3-8.2)
--- NOTE | 2019-02-07 11:14 | P.PN ---
Subjective Progress Note Date: 02/07/19 Marialuisa Clements 68-year-old female patient of Dr. Sadler. Patient presented to the hospital with complaints of abdominal pain with nausea for 1 week. Patient reports that the pain is epigastric and occurs intermittently. Patient denies constipation. Patient reports last bowel movement was 2 days ago and was normal. Denies any signs of blood. Patient denies any alcohol intake. Patient has a past medical history of COPD, diabetes mellitus, GERD, hyperlipidemia, hypertension, musculoskeletal disorder, chronic back pain, peripheral vascular disease, nicotine dependence and depression. Acute abdominal series completed in ER showing nonacute abdomen. No active cardiopulmonary disease. No change. EKG completed showing normal sinus rhythm nonspecific T-wave abnormality. Patient's creatinine slightly elevated at 1.11 and bun 34. Patient's white blood cell count also elevated at 13.9. Patient does reports she's been on Medrol Dosepak for a fall and injury to hip and Levaquin for upper respiratory infection. At this time patient is still complaining of upper abdominal pain. GI services have been consulted. Patient denies chest pain or shortness of breath. Patient denies vomiting or diarrhea. Patient denies any urinary burning or frequency. On 02/07/2019 patient was seen and examined in the observation unit she is alert and oriented 3 in no apparent distress she is still complaining of epigastric pain otherwise no symptoms there is no nausea or vomiting no fever or chills no headache no chest pain no shortness of breath no cough and no urinary symptoms. Objective - Vital Signs Vital signs: Vital Signs Temp 97.5 F L 02/07/19 08:00 Pulse 87 02/07/19 08:00 Resp 18 02/07/19 08:00 BP 158/68 02/07/19 08:00 Pulse Ox 92 L 02/07/19 08:00 Intake & Output 02/06/19 02/07/19 02/07/19 18:59 06:59 18:59 Intake Total 200 720 Balance 200 720 Weight 104.326 kg Intake: Oral 200 720 Other: Voiding Method Toilet Toilet Toilet # Voids 1 1 - Exam In general patient is alert and oriented 3 in no apparent distress HEENT head normocephalic and atraumatic Neck is supple no JVD no goiter no lymphadenopathy Chest exam reveals a few scattered rhonchi no wheezing Cardiac exam reveals regular heart sounds S1 and S2 no gallops no murmurs Abdomen is soft with mild tenderness in the epigastric area no organomegaly no palpable masses was normal bowel sounds Extremity exam reveals no edema there is partial foot amputation and toe amputation due to severe peripheral vascular disease - Labs CBC & Chem 7: 02/07/19 07:52 02/07/19 07:52 Labs: Abnormal Lab Results - Last 24 Hours (Table) 02/06/19 02/06/19 02/06/19 Range/Units 16:27 16:46 20:24 RBC (3.80-5.40) m/uL Hct (34.0-46.0) % MCHC (31.0-37.0) g/dL Neutrophils # (1.3-7.7) k/uL BUN (7-17) mg/dL Glucose (74-99) mg/dL POC Glucose (mg/dL) 47 L 52 L 197 H (75-99) mg/dL Total Protein (6.3-8.2) g/dL Albumin (3.5-5.0) g/dL 02/07/19 02/07/19 02/07/19 Range/Units 06:47 07:52 07:52 RBC 5.86 H (3.80-5.40) m/uL Hct 50.8 H (34.0-46.0) % MCHC 29.7 L (31.0-37.0) g/dL Neutrophils # 8.2 H (1.3-7.7) k/uL BUN 21 H (7-17) mg/dL Glucose 279 H (74-99) mg/dL POC Glucose (mg/dL) 192 H (75-99) mg/dL Total Protein 6.2 L (6.3-8.2) g/dL Albumin 3.3 L (3.5-5.0) g/dL Assessment and Plan Plan: 1. Abdominal pain with nausea. Acute abdominal series completed showing nonacute abdomen. There is evidence of previous gastric sleeve surgery. No active cardiopulmonary disease. No change. GI services have been consulted. Patient started on Protonix. Normal saline at 100 3. Acute kidney injury. Admission creatinine 1.11. Repeat creatinine improving to 0.94 continue fluids at 100 4. History of cholecystectomy 5. History of diabetes mellitus. Home insulin on hold due to patient being nothing by mouth. Will order sliding scale coverage at this time 6. Leukocytosis. Initial white blood cell elevated at 13.9. Patient reports that she has been on Medrol Dosepak due to injury to hip. Patient also getting treated with Levaquin outpatient for upper respiratory infection. UA showing trace amount of leukocyte Estrace. Patient denies symptoms at this time. Will order urine culture 7. History of GERD 8. History of hyperlipidemia 9. History of chronic back pain 10. History of depression. Home meds resumed 11. History of nicotine dependence. Patient educated greater than 3 minutes smoking cessation. Nicotine patch will be ordered DVT prophylaxis SCDs until GI evaluation. GI prophylaxis Protonix At this time we are awaiting EGD Continue was current management
[2019-02-07 11:54] LABS: Glucose,Whole Blood 298 mg/dL (75-99)
[2019-02-07] MEDS: INSULIN DETEMIR (LEVEMIR) 100 UNIT/ML SYR SQ SCH (13:27)
--- NOTE | 2019-02-07 16:37 | PN ---
PROGRESS NOTE DATE OF SERVICE: 02/07/2019 Patient is a 68-year-old pleasant white female admitted to hospital with severe epigastric pain that started a week ago. The pain is mostly in the epigastric area, states there was nausea, but no emesis. She has a prior history of gastric lap band surgery. Because of the severe pain, she had a CT of the abdomen and pelvis done yesterday that was essentially within normal limits. She has been on Protonix 40 mg daily despite which continues to remain symptomatic. She has no prior history of peptic ulcer disease. She was recently given steroid Dosepak for back pain about 2 weeks ago. PHYSICAL EXAMINATION: She appears comfortable, in no apparent distress. VITAL SIGNS: Stable. Blood pressure is 132/99, pulse rate 97, temperature 98.4. HEENT examination unremarkable. Conjunctivae are pink, sclerae nonicteric. Oral cavity no lesions. Neck, no JVD or lymph node enlargement. Chest was clear to auscultation. Heart, regular rate and rhythm. Abdomen is soft. Bowel sounds are positive. No organomegaly. There was mild tenderness in the epigastric area. Extremities, no pedal edema. Skin no rashes. Neuro, alert and oriented x3. No focal deficits. LABS: CBC is within normal limits. Basic metabolic panel is within normal limits. IMPRESSION: Acute onset of severe epigastric pain for the last [address] abdomen and pelvis remain unremarkable. Rule out the possibility of peptic ulcer disease. RECOMMENDATION: 1. Continue with IV PPIs. 2. Full liquid diet. 3. Proceed with an upper endoscopy tomorrow. I discussed with the patient risks, benefits and complications of the procedure and she is agreeable to it. Thank you for this consultation. MMODL / IJN: [id number] /
[2019-02-07 16:51] LABS: Glucose,Whole Blood 239 mg/dL (75-99)
[2019-02-07] MEDS: MONTELUKAST 10 MG TAB PO SCH (19:37)
[2019-02-07 21:05] LABS: Glucose,Whole Blood 221 mg/dL (75-99)
[2019-02-08] MEDS: HYDROcodone/APAP 10-325MG 1 EACH TAB PO PRN ×2 (02:13→08:15)
[2019-02-08 05:57] LABS: Basophils % (A) 0 %; Eosinophils # (A) 0.1 k/uL (0-0.7); Eosinophils % (A) 1 %; HCT 46.9 % (34.0-46.0); HGB 14.2 gm/dL (11.4-16.0); Hypochromasia Moderate; Lymphocytes # (A) 1.3 k/uL (1.0-4.8); Lymphocytes % (A) 10 %; MCH 26.1 pg (25.0-35.0); MCHC 30.3 g/dL (31.0-37.0); MCV 85.9 fL (80.0-100.0); Monocytes # (A) 0.3 k/uL (0-1.0); Monocytes % (A) 2 %; Neutrophils # (A) 11.6 k/uL (1.3-7.7); Neutrophils % (A) 88 %; Platelet Count 295 k/uL (150-450); RBC 5.46 m/uL (3.80-5.40); RDW 15.2 % (11.5-15.5); WBC 13.3 k/uL (3.8-10.6)
[2019-02-08 06:08] LABS: Albumin 3.3 g/dL (3.5-5.0); Calcium 9.1 mg/dL (8.4-10.2); Potassium 4.2 mmol/L (3.5-5.1); Total Bilirubin 0.4 mg/dL (0.2-1.3); Total Protein 6.3 g/dL (6.3-8.2)
[2019-02-08 07:25] LABS: Glucose,Whole Blood 182 mg/dL (75-99)
[2019-02-08] MEDS: methylPREDNISolone SOD SUCCI 125 MG/2 ML VIAL IV SCH (08:04)
[2019-02-08] MEDS: INSULIN ASPART (NovoLOG) 100 UNIT/ML VIAL SQ SCH ×2 (08:05→12:06)
[2019-02-08] MEDS: PANTOPRAZOLE 40 MG/10 ML VIAL IV SCH (08:05)
[2019-02-08] MEDS: ONDANSETRON 4 MG/2 ML VIAL IVP PRN (08:16)
[2019-02-08 08:24] VITALS: RESP 18; TEMP 97.6
[2019-02-08] MEDS ORDERED: IV FLUID CONTINUATION 1,000 ML IV ONE (09:47)
[2019-02-08] MEDS ORDERED: PROPOFOL 10 MG/ML 20 ML VIAL IV ONE (09:47)
--- NOTE | 2019-02-08 09:55 | P.PCN ---
Date of Procedure: 02/08/19 Procedure(s) Performed: BRIEF HISTORY: Patient is a 68-year-old, pleasant, female, scheduled for an upper endoscopy as a part of evaluation of severe epigastric pain for the last 3-4 days duration. Patient has a history of lab and surgery done several years ago. She had a CT of the abdomen and pelvis done yesterday that was unremarkable.. PROCEDURE PERFORMED: Esophagogastroduodenoscopy with biopsy. PREOPERATIVE DIAGNOSIS: Severe epigastric pain of 3-4 days duration. IV sedation per anesthesia. PROCEDURE: After informed consent was obtained, the patient was brought into the endoscopy unit. IV sedation was administered by Anesthesia under continuous monitoring. Initially the Olympus GIF-140 video endoscope was inserted into the mouth. Esophagus intubated without any difficulty. It was gradually advanced into the stomach and duodenum and carefully examined. The bulb and the second part of the duodenum appeared normal. The scope at this time was withdrawn to the stomach, adequately insufflated with air, and upon careful examination, mucosa of the antrum had scattered erosions and biopsies were done from this area. The body, cardia and the fundus appeared normal. The scope was then withdrawn into the esophagus. The GE junction was located at 39 cm from the incisors. The esophagus appeared normal. There were no erosions or ulcerations seen and the patient tolerated the procedure well. IMPRESSION: 1. Scattered erosions in the antrum consistent with erosive gastritis. 2. No evidence of esophagitis or peptic ulcer disease. RECOMMENDATIONS: The findings of this examination were discussed with the patient. At this time will await the biopsy results. She will continue with current PPI. Add Carafate 1 g 4 times daily. Advance diet as tolerated.
[2019-02-08] MEDS: NICOTINE 14MG/24HR PATCH TRANSDERM SCH (10:37)
[2019-02-08] MEDS: INSULIN DETEMIR (LEVEMIR) 100 UNIT/ML SYR SQ SCH (10:40)
[2019-02-08] MEDS: CLINDAMYCIN 150 MG CAP PO SCH (10:41)
[2019-02-08] MEDS: METOLAZONE 5 MG TAB PO SCH (10:41)
[2019-02-08] MEDS: METOPROLOL TARTRATE 50 MG TAB PO SCH (10:41)
[2019-02-08] MEDS: DULoxetine HCL 60 MG CAPSULE.DR PO SCH (10:41)
[2019-02-08] MEDS: DICYCLOMINE 20 MG TAB PO SCH (10:41)
[2019-02-08] MEDS: FUROSEMIDE 40 MG TAB PO SCH (10:41)
[2019-02-08] MEDS: OLANZapine 5 MG TAB PO SCH (10:42)
[2019-02-08] MEDS: PREGABALIN 75 MG CAP PO SCH (10:42)
[2019-02-08] MEDS: POTASSIUM CHLORIDE ER 10 MEQ TAB.ER.PRT PO SCH (10:42)
[2019-02-08 11:29] VITALS: BP 150/67; PULSE 82
[2019-02-08 11:44] LABS: Glucose,Whole Blood 206 mg/dL (75-99)
--- NOTE | 2019-02-08 11:50 | P.DS ---
Providers Date of admission: 02/07/19 11:17 Expected date of discharge: 02/08/19 Attending physician: Ezio Rosa Consults: 02/05/19 20:36 Consult Physician Routine Consulting Provider: Olman Dickerson Consult Reason/Comments: abdominal pain Do you want consulting provider notified?: Yes Primary care physician: Mitzi Sadler [facility] Course: Diagnosis on discharge: 1. Abdominal pain with nausea. Acute abdominal series completed showing nonacute abdomen. There is evidence of previous gastric sleeve surgery. No active cardiopulmonary disease. No change. GI services have been consulted. Patient started on Protonix. Normal saline at 100 3. Acute kidney injury. Admission creatinine 1.11. Repeat creatinine improving to 0.94 continue fluids at 100 4. History of cholecystectomy 5. History of diabetes mellitus. Home insulin on hold due to patient being nothing by mouth. Will order sliding scale coverage at this time 6. Leukocytosis. Initial white blood cell elevated at 13.9. Patient reports that she has been on Medrol Dosepak due to injury to hip. Patient also getting treated with Levaquin outpatient for upper respiratory infection. UA showing trace amount of leukocyte Estrace. Patient denies symptoms at this time. Will order urine culture 7. History of GERD 8. History of hyperlipidemia 9. History of chronic back pain 10. History of depression. Home meds resumed 11. History of nicotine dependence. Patient educated greater than 3 minutes smoking cessation. Nicotine patch will be ordered Hospital course: Marialuisa Clements 68-year-old female patient of Dr. Sadler. Patient presented to the hospital with complaints of abdominal pain with nausea for 1 week. Patient reports that the pain is epigastric and occurs intermittently. Patient denies constipation. Patient reports last bowel movement was 2 days ago and was normal. Denies any signs of blood. Patient denies any alcohol intake. Patient has a past medical history of COPD, diabetes mellitus, GERD, hyperlipidemia, hypertension, musculoskeletal disorder, chronic back pain, peripheral vascular disease, nicotine dependence and depression. Acute abdominal series completed in ER showing nonacute abdomen. No active cardiopulmonary disease. No change. EKG completed showing normal sinus rhythm nonspecific T-wave abnormality. Patient's creatinine slightly elevated at 1.11 and bun 34. Patient's white blood cell count also elevated at 13.9. Patient does reports she's been on Medrol Dosepak for a fall and injury to hip and Levaquin for upper respiratory infection. At this time patient is still complaining of upper abdominal pain. GI services have been consulted. Patient denies chest pain or shortness of breath. Patient denies vomiting or diarrhea. Patient denies any urinary burning or frequency. On 02/07/2019 patient was seen and examined in the observation unit she is alert and oriented 3 in no apparent distress she is still complaining of epigastric pain otherwise no symptoms there is no nausea or vomiting no fever or chills no headache no chest pain no shortness of breath no cough and no urinary symptoms. On 02/08/2019 patient was seen and examined on the observation unit she is alert and oriented 3 she is still complaining of epigastric discomfort she had an EGD this morning by Dr. Jayda Yu that revealed evidence of erosive gastritis she is maintained on Protonix and Carafate was added to regimen patient was cleared by gastroenterology for discharge to home she was given a prescription for Carafate and prescription for Protonix she was also counseled in length in regard to smoking cessation and was given a prescription for NicoDerm patches. At the time of discharge there was no evidence of any infectious process she did not receive any prescription for antibiotic there is no need for antibiotic or steroid post discharge. She will follow-up with her primary care physician within 1 week she will also follow with Dr. Jayda Yu for follow-up on biopsy results. Patient has a known history of sleeve gastrectomy by Dr. Dada Bass she was encouraged to follow-up with him to assess if that has any relation to her epigastric pain. Patient Condition at Discharge: Fair Plan - Discharge Summary Discharge Rx Participant: Yes New Discharge Prescriptions: New Sucralfate [Carafate] 1 gm PO ACHS #120 tablet Clindamycin [Cleocin] 150 mg PO TID cap Nicotine 14Mg/24Hr Patch [Habitrol] 1 patch TRANSDERM DAILY patch Pantoprazole Sodium [Protonix] 40 mg PO BID #60 tablet. Acetaminophen Tab [Tylenol] 650 mg PO Q6HR PRN tab PRN Reason: Mild Pain Or Fever > 100.5 Continue DULoxetine HCL [Cymbalta] 60 mg PO DAILY Clopidogrel [Plavix] 75 mg PO DAILY Simvastatin [Zocor] 40 mg PO HS rOPINIRole HCL [Requip] 2 mg PO BID Metoprolol Tartrate [Lopressor] 100 mg PO BID Furosemide [Lasix] 40 mg PO DAILY OLANZapine [ZyPREXA] 15 mg PO DAILY HYDROcodone/APAP 10-325MG [[place] 10-325] 1 tab PO Q6HR PRN PRN Reason: Pain sitaGLIPtin [Januvia] 100 mg PO DAILY Loratadine [Claritin] 10 mg PO DAILY Dicyclomine [Bentyl] 20 mg PO QID Montelukast [Singulair] 10 mg PO HS Insulin Glargine [Lantus] 70 units SQ QAM Umeclidinium Brm/Vilanterol Tr [Anoro Ellipta 62.5-25 Mcg INH] 1 puff INHALATION RT-DAILY INSULIN LISPRO (HumaLOG) [humaLOG] 10 unit SQ TID-W/MEALS Metolazone [Zaroxolyn] 5 mg PO DAILY Fenofibrate Nanocrystallized [Fenofibrate] 145 mg PO DAILY Pregabalin [Lyrica] 75 mg PO BID Potassium Chloride [K-Tab ER] 10 meq PO TID Discontinued Omeprazole [PriLOSEC] 20 mg PO DAILY methylPREDNISolone [Medrol Dose Pack] See Taper PO DIRECTED Levofloxacin [Levaquin] 500 mg PO DAILY Celecoxib [CeleBREX] 100 mg PO DAILY Discharge Medication List Clopidogrel [Plavix] 75 mg PO DAILY 06/17/14 [History] DULoxetine HCL [Cymbalta] 60 mg PO DAILY 06/17/14 [History] Furosemide [Lasix] 40 mg PO DAILY 06/17/14 [History] HYDROcodone/APAP 10-325MG [[place] 10-325] 1 tab PO Q6HR PRN 06/17/14 [History] Metoprolol Tartrate [Lopressor] 100 mg PO BID 06/17/14 [History] OLANZapine [ZyPREXA] 15 mg PO DAILY 06/17/14 [History] Simvastatin [Zocor] 40 mg PO HS 06/17/14 [History] rOPINIRole HCL [Requip] 2 mg PO BID 06/17/14 [History] Dicyclomine [Bentyl] 20 mg PO QID 06/17/18 [History] Insulin Glargine [Lantus] 70 units SQ QAM 06/17/18 [History] Loratadine [Claritin] 10 mg PO DAILY 06/17/18 [History] Montelukast [Singulair] 10 mg PO HS 06/17/18 [History] sitaGLIPtin [Januvia] 100 mg PO DAILY 06/17/18 [History] Fenofibrate Nanocrystallized [Fenofibrate] 145 mg PO DAILY 02/05/19 [History] INSULIN LISPRO (HumaLOG) [humaLOG] 10 unit SQ TID-W/MEALS 02/05/19 [History] Metolazone [Zaroxolyn] 5 mg PO DAILY 02/05/19 [History] Potassium Chloride [K-Tab ER] 10 meq PO TID 02/05/19 [History] Pregabalin [Lyrica] 75 mg PO BID 02/05/19 [History] Umeclidinium Brm/Vilanterol Tr [Anoro Ellipta 62.5-25 Mcg INH] 1 puff INHALATION RT-DAILY 02/05/19 [History] Acetaminophen Tab [Tylenol] 650 mg PO Q6HR PRN tab 02/08/19 [Rx] Clindamycin [Cleocin] 150 mg PO TID cap 02/08/19 [Rx] Nicotine 14Mg/24Hr Patch [Habitrol] 1 patch TRANSDERM DAILY patch 02/08/19 [Rx] Pantoprazole Sodium [Protonix] 40 mg PO BID #60 tablet. 02/08/19 [Rx] Sucralfate [Carafate] 1 gm PO ACHS #120 tablet 02/08/19 [Rx] Follow up Appointment(s)/Referral(s): Mitzi Sadler DO [Primary Care Provider] - 1-2 days
[2019-02-08] MEDS ORDERED: SUCRALFATE 1 GM TAB PO SCH (12:30)
== END 2019-02-08 13:23 | disposition home or self-care (01) | DRG 392 ==
LOC: EC 18:54 → 1SOBS 20:35 → OBSVTOIN 02-07 11:17
PROVIDERS: ADMIT Internal Medicine; ATTEND Internal Medicine
PROC: 0DJ08ZZ Inspection of Upper Intestinal Tract, Via Natural or Artificial Opening Endoscopic (ICD-10-PCS; principal; 2019-02-08 09:47)
DX: K29.00 Acute gastritis without bleeding (principal); N17.9 Acute kidney failure, unspecified; E11.51 Type 2 diabetes mellitus with diabetic peripheral angiopathy without gangrene; E78.5 Hyperlipidemia, unspecified; F17.200 Nicotine dependence, unspecified, uncomplicated; F32.9 Major depressive disorder, single episode, unspecified; I10 Essential (primary) hypertension; J06.9 Acute upper respiratory infection, unspecified; J44.9 Chronic obstructive pulmonary disease, unspecified; K21.9 Gastro-esophageal reflux disease without esophagitis; K57.30 Diverticulosis of large intestine without perforation or abscess without bleeding; Z96.643 Presence of artificial hip joint, bilateral; Z96.60 Presence of unspecified orthopedic joint implant; Z79.02 Long term (current) use of antithrombotics/antiplatelets; Z79.4 Long term (current) use of insulin; Z79.899 Other long term (current) drug therapy; Z80.0 Family history of malignant neoplasm of digestive organs; Z82.49 Family history of ischemic heart disease and other diseases of the circulatory system; Z83.3 Family history of diabetes mellitus; Z90.710 Acquired absence of both cervix and uterus; Z98.84 Bariatric surgery status; Z88.5 Allergy status to narcotic agent; Z88.0 Allergy status to penicillin; Z88.8 Allergy status to other drugs, medicaments and biological substances; Z91.041 Radiographic dye allergy status; Z91.040 Latex allergy status; Z90.49 Acquired absence of other specified parts of digestive tract; Z89.422 Acquired absence of other left toe(s); Z89.411 Acquired absence of right great toe; Z98.42 Cataract extraction status, left eye; Z98.41 Cataract extraction status, right eye
CPT/HCPCS: 36415; 43239; 74022; 74176; 80053; 80306; 81001; 83605; 83690; 85025; 85610; 87086; 88305; 93005; 96361; 96374; 96375; 99285

== ENCOUNTER → 2019-10-02 | Outpatient (CLI) | payer MEDICARE, OTHER | END | disposition home or self-care (01) | LOC: LABWHC1 16:15 | PROVIDERS: ATTEND Psychiatry & Neurology Neurology | DX: Z01.812 Encounter for preprocedural laboratory examination (principal); Z01.818 Encounter for other preprocedural examination | CPT/HCPCS: 36415; 93005 ==

== ENCOUNTER → 2021-01-09 | Outpatient (CLI) | payer MEDICARE, OTHER | END | disposition home or self-care (01) | LOC: LABWHC1 14:20 | PROVIDERS: ATTEND Psychiatry & Neurology Neurology | DX: Z01.818 Encounter for other preprocedural examination (principal) | CPT/HCPCS: U0003; C9803 ==

== ENCOUNTER → 2021-07-25 | Outpatient (CLI) | payer MEDICARE, OTHER ==
--- NOTE | 2021-07-25 12:15 | CT ---
EXAMINATION TYPE: CT soft tissue neck wo con DATE OF EXAM: 07/25/2021 COMPARISON: 10/21/2018 HISTORY: R59.9 Enlarged lymph nodes, unspecified Unenhanced CT of the neck was performed from the skull base through the lung apices. The lack of cont rast limits evaluation. AIRWAY: The supraglottic, glottic, and subglottic portions of the airway appear patent and free of mass. SALIVARY GLANDS: At the site of clinical concern there is mild fullness of the left parotid gland cou ld reflect mild inflammatory change. No intraparotid lesion is identified bilaterally. Submandibular glands are unremarkable. THYROID GLAND: No nodules or masses seen. LYMPH NODES: No adenopathy seen greater than 1cm. LUNG APICES: No nodule or mass is seen. OTHER: Vascular structures are patent. No significant degenerative change of the cervical spine. N o abscess seen. IMPRESSION: At the site of clinical concern there is mild fullness of the left parotid gland could reflect mild i nflammatory change. No intraparotid lesion is identified bilaterally.
== END | disposition home or self-care (01) ==
LOC: RADCTMAIN 11:41
PROVIDERS: ATTEND Family Medicine
DX: K11.8 Other diseases of salivary glands (principal); D49.0 Neoplasm of unspecified behavior of digestive system
CPT/HCPCS: 70490

== ENCOUNTER 2024-02-05 09:44 | Observation (INO) | payer MEDICARE, OTHER ==
[2024-02-05] MEDS: FUROSEMIDE 10 MG/ML 4 ML VIAL IV STA (10:15)
[2024-02-05 10:30] LABS: Basophils % (A) 1 %; Eosinophils # (A) 0.2 k/uL (0-0.7); Eosinophils % (A) 3 %; HCT 43.3 % (34.0-46.0); HGB 13.7 gm/dL (11.4-16.0); Hypochromasia Slight; Lymphocytes % (A) 30 %; MCH 28.8 pg (25.0-35.0); MCHC 31.6 g/dL (31.0-37.0); MCV 91.2 fL (80.0-100.0); Mean Platelet Volume 8.6; Monocytes # (A) 0.3 k/uL (0-1.0); Monocytes % (A) 4 %; Neutrophils # (A) 4.1 k/uL (1.3-7.7); Neutrophils % (A) 61 %; Platelet Count 204 k/uL (150-450); RBC 4.75 m/uL (3.80-5.40); RDW 14.9 % (11.5-15.5); WBC 6.8 k/uL (3.8-10.6)
[2024-02-05 10:39] LABS: INR 0.9 (<1.2); Partial Thromboplastin Time 23.5 sec (22.0-30.0); Prothrombin Time 9.8 sec (10.0-12.5)
--- NOTE | 2024-02-05 10:44 | XR ---
EXAMINATION TYPE: XR chest 2V DATE OF EXAM: 02/05/2024 10:41 AM CLINICAL INDICATION:Female, 73 years old with history of Chest Pain; [facility] COMPARISON: Chest radiographs from 01/31/2013 TECHNIQUE: XR chest 2V Frontal and lateral views of the chest. FINDINGS: Lungs/Pleura: Low lung volumes are present. There is no evidence of pleural effusion, focal consolida tion, or pneumothorax. Pulmonary vascularity: Unremarkable. Heart/mediastinum: Cardiomediastinal silhouette is unremarkable. Musculoskeletal: No acute osseous pathology. Nerve stimulator lead in region of the spine in the thor acic and cervical spine.. IMPRESSION: Low lung volumes with a generalized hazy appearance which could represent atelectasis versus pulmonar y edema correlate with serum BNP.
[2024-02-05 10:47] LABS: ALT 16 U/L (4-34); AST 26 U/L (14-36); African American GFR (CKD) 54 (>60 ml/min/1.73 sqM); Albumin 3.6 g/dL (3.5-5.0); Alkaline Phosphatase 79 U/L (38-126); Anion Gap 4 mmol/L; Blood Urea Nitrogen 14 mg/dL (7-17); Calcium 9.3 mg/dL (8.4-10.2); Carbon Dioxide 33 mmol/L (22-30); Chloride 104 mmol/L (98-107); Glucose 172 mg/dL (74-99); Magnesium 2.2 mg/dL (1.6-2.3); Non-African American GFR(CKD) 47 (>60 ml/min/1.73 sqM); Potassium 4.3 mmol/L (3.5-5.1); Sodium 141 mmol/L (137-145); Total Bilirubin 0.5 mg/dL (0.2-1.3); Total Protein 6.7 g/dL (6.3-8.2)
[2024-02-05 10:56] LABS: NT-Pro-B-Type Natriuretic Pept 67 pg/mL
[2024-02-05] MEDS ORDERED: NITROGLYCERIN SL TABS 0.4 MG TAB SUBLINGUAL PRN (11:44)
--- NOTE | 2024-02-05 11:44 | ED ---
Chest Pain HPI - General Chief Complaint: Chest Pain Stated Complaint: Chest Pains Time Seen by Provider: 02/05/24 09:47 Source: EMS, RN notes reviewed Mode of arrival: EMS Limitations: no limitations - History of Present Illness Initial Comments: Chronic oral female presents emergency department chief complaint of chest pain, shortness of breath, leg swelling. Patient states she saw her PCP 2 weeks ago and was placed on Lasix. Patient states she follow-up with her primary counselor today at her scheduled appointment and sent over for evaluation and probable admission they are concerned that she may have new onset CHF she had an echo showing 35% of recent. Patient states cannot lay flat she states her legs are very sensitive, tight feeling she states symptoms are worse with exertion at times. Patient was given aspirin nitro by cardiology - Related Data Home Medications Medication Instructions Recorded Confirmed Clopidogrel [Plavix] 75 mg PO DAILY 06/17/14 02/05/19 DULoxetine HCL [Cymbalta] 60 mg PO DAILY 06/17/14 02/05/19 Furosemide [Lasix] 40 mg PO DAILY 06/17/14 02/05/19 HYDROcodone/APAP 10-325MG [[place] 1 tab PO Q6HR PRN 06/17/14 02/05/19 10-325] Metoprolol Tartrate [Lopressor] 100 mg PO BID 06/17/14 02/05/19 OLANZapine [ZyPREXA] 15 mg PO DAILY 06/17/14 02/05/19 Simvastatin [Zocor] 40 mg PO HS 06/17/14 02/05/19 rOPINIRole HCL [Requip] 2 mg PO BID 06/17/14 02/05/19 Dicyclomine [Bentyl] 20 mg PO QID 06/17/18 02/05/19 Insulin Glargine [Lantus Vial] 70 units SQ QAM 06/17/18 02/05/19 Loratadine [Claritin] 10 mg PO DAILY 06/17/18 02/05/19 Montelukast [Singulair] 10 mg PO HS 06/17/18 02/05/19 sitaGLIPtin [Januvia] 100 mg PO DAILY 06/17/18 02/05/19 Fenofibrate Nanocrystallized 145 mg PO DAILY 02/05/19 02/05/19 [Fenofibrate] INSULIN LISPRO (HumaLOG) [humaLOG] 10 unit SQ TID-W/MEALS 02/05/19 02/05/19 Potassium Chloride [K-Tab ER] 10 meq PO TID 02/05/19 02/05/19 Pregabalin [Lyrica] 75 mg PO BID 02/05/19 02/05/19 Umeclidinium Brm/Vilanterol Tr 1 puff INHALATION RT-DAILY 02/05/19 02/05/19 [Anoro Ellipta 62.5-25 Mcg INH] metOLazone [Zaroxolyn] 5 mg PO DAILY 02/05/19 02/05/19 Previous Rx's Medication Instructions Recorded Acetaminophen Tab [Tylenol] 650 mg PO Q6HR PRN tab 02/08/19 Clindamycin [Cleocin] 150 mg PO TID cap 02/08/19 Nicotine 14Mg/24Hr Patch [Habitrol] 1 patch TRANSDERM DAILY patch 02/08/19 Pantoprazole Sodium [Protonix] 40 mg PO BID #60 tablet. 02/08/19 Sucralfate [Carafate] 1 gm PO ACHS #120 tablet 02/08/19 Allergies Allergy/AdvReac Type Severity Reaction Status Date / Time buprenorphine HCl Allergy Rash/Hives Verified 02/05/24 10:03 [From Buprenex] Iodinated Contrast Media Allergy Rash/Hives Verified 02/05/24 10:03 [Iodinated Contrast- Oral and IV Dye] latex Allergy skin Verified 02/05/24 10:03 cracks and bleeds Penicillins Allergy Anaphylaxis Verified 02/05/24 10:03 prochlorperazine maleate Allergy Anaphylaxis Verified 02/05/24 10:03 [From Compazine] codeine AdvReac Nausea & Verified 02/05/24 10:03 Vomiting morphine AdvReac Abdominal Verified 02/05/24 10:03 Pain prochlorperazine edisylate AdvReac Anaphylaxis Verified 02/05/24 10:03 [From Compazine] ivp dye Allergy Rash/Hives Uncoded 02/05/24 10:03 Review of Systems ROS Statement: Those systems with pertinent positive or pertinent negative responses have been documented in the HPI. ROS Other: All systems not noted in ROS Statement are negative. EKG Findings - EKG Comments: EKG Findings:: EKG performed at 9: 54 sinus rhythm with a rate of 77 NC 144 QRS 110 QT/QTc 379/411 - EKG Results: EKG: interpreted by LASHANDA Past Medical History Past Medical History: Blood Disorder, Heart Failure, COPD, Diabetes Mellitus, GERD/Reflux, Hyperlipidemia, Hypertension, Musculoskeletal Disorder Additional Past Medical History / Comment(s): CHRONIC BACK PAIN, DDD, Peripheral vascular disease History of Any Multi-Drug Resistant Organisms: None Reported Past Surgical History: Appendectomy, Back Surgery, Bowel Resection, Cholecystectomy, Hysterectomy, Joint Replacement, Orthopedic Surgery Additional Past Surgical History / Comment(s): 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, 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, HAS METAL IN BACK, KRISTINE CATARACTS, KRISTINE HIP REPLACEMENTS, KRISTINE HANDS TRIGGER FINGER SX'S; Shoulder Arthroscopy; has Fx R upper arm Past Anesthesia/Blood Transfusion Reactions: No Reported Reaction Past Psychological History: Depression Smoking Status: Former smoker Past Alcohol Use History: Occasional Past Drug Use History: None Reported - Past Family History Mother Family Medical History: Cancer, Coronary Artery Disease (CAD) Additional Family Medical History / Comment(s): MOTHER HAD STOMACH CANCER Father Family Medical History: Coronary Artery Disease (CAD), Diabetes Mellitus Brother(s) Family Medical History: Cancer Additional Family Medical History / Comment(s): BROTHER HAD PROSTATE CANCER General Exam Limitations: no limitations General appearance: alert, in no apparent distress Head exam: Present: atraumatic, normocephalic, normal inspection Eye exam: Present: normal appearance, PERRL, EOMI. Absent: scleral icterus, conjunctival injection, periorbital swelling ENT exam: Present: normal exam, mucous membranes moist Neck exam: Present: normal inspection. Absent: tenderness, meningismus, lymphadenopathy Respiratory exam: Present: wheezes, rales. Absent: normal lung sounds bilaterally, respiratory distress, rhonchi, stridor Cardiovascular Exam: Present: regular rate, normal rhythm, normal heart sounds. Absent: systolic murmur, diastolic murmur, rubs, gallop, clicks Course Vital Signs 02/05/24 09:50 Temperature 97.5 F L Pulse Rate 79 Respiratory 18 Rate Blood Pressure 120/66 O2 Sat by Pulse 98 Oximetry Chest Pain MDM - MDM Was pt. sent in by a medical professional or institution (, PA, WORKPLACE REHABILITATION OFFICER, urgent care, hospital, or fpc...) When possible be specific @ -Cardiology Did you speak to anyone other than the patient for history (EMS, parent, family, police, friend...)? What history was obtained from this source @ -No Did you review nursing and triage notes (agree or disagree)? Why? @ -I reviewed and agree with nursing and triage notes Were old charts reviewed (outside hosp., previous admission, EMS record, old EKG, old radiological studies, urgent care reports/EKG's, fpc records)? Report findings @ -No old charts were reviewed Differential Diagnosis (chest pain, altered mental status, abdominal pain women, abdominal pain men, vaginal bleeding, weakness, fever, dyspnea, syncope, headache, dizziness, GI bleed, back pain, seizure, CVA, palpatations, mental health, musculoskeletal)? @ -Differential Chest Pain: Stable Angina, Unstable Angina, STEMI, NSTEMI Aortic Dissection, Pneumothorax, Musculoskeletal, Esophageal Spasm GERD, Cholecystitis, Pancreatitis, Zoster, this is not meant to be an all-inclusive list. EKG interpreted by me (3pts min.). @ -As above X-rays interpreted by me (1pt min.). @ -Chest x-ray shows pulmonary edema CT interpreted by me (1pt min.). @ -None done U/S interpreted by me (1pt. min.). @ -None done What testing was considered but not performed or refused? (CT, X-rays, U/S, labs)? Why? @ -None What meds were considered but not given or refused? Why? @ -None Did you discuss the management of the patient with other professionals (professionals i.e. , PA, WORKPLACE REHABILITATION OFFICER, lab, RT, psych nurse, adoption social worker, tow picker, teacher, juvenile detention officer, family independence case manager)? Give summary @ -Dr. Sadler for admission for chest pain, CHF Was smoking cessation discussed for >3mins.? @ -No Was critical care preformed (if so, how long)? @ -35 minutes of critical care Were there social determinants of health that impacted care today? How? (Homelessness, low income, unemployed, alcoholism, drug addiction, transportation, low edu. Level, literacy, decrease access to med. care, snf, rehab)? @ -No Was there de-escalation of care discussed even if they declined (Discuss DNR or withdrawal of care, Hospice)? DNR status @ -No What co-morbidities impacted this encounter? (DM, HTN, Smoking, COPD, CAD, Ca ncer, CVA, ARF, Chemo, Hep., AIDS, mental health diagnosis, sleep apnea, morbid obesity)? @ -[Hypertension hyperlipidemia Was patient admitted / discharged? Hospital course, mention meds given and rou te, prescriptions, significant lab abnormalities, going to OR and other pertinent info. @ -Admitted patient upon he have significant pulmonary edema, orthopnea. Initial troponin is negative. BNP is minimally elevated though she has last EF 35. Patient was given Lasix, did receive nitro and aspirin prior to arrival. Patient will be admitted for further diuresis, cardiology evaluation Undiagnosed new problem with uncertain prognosis? @ -[No Drug Therapy requiring intensive monitoring for toxicity (Heparin, Nitro, Insulin, Cardizem)? @ -No Were any procedures done? @ -No Diagnosis/symptom? @ -Chest pain, CHF Acute, or Chronic, or Acute on Chronic? @ -[Acute Uncomplicated (without systemic symptoms) or Complicated (systemic symptoms)? @ -Complicated Side effects of treatment? @ -No Exacerbation, Progression, or Severe Exacerbation? @ -No Poses a threat to life or bodily function? How? (Chest pain, [place], [place], pneumonia, PE, COPD, DKA, ARF, appy, cholecystitis, CVA, Diverticulitis, Homicidal, Suicidal, threat to staff... and all critical care pts) @ -[Yes possible ACS, CHF Critical Care Time Critical Care Time: Yes Total Critical Care Time: 35 Disposition Clinical Impression: CHF (congestive heart failure), Chest pain Disposition: ADMITTED IP TO THIS HOSP Condition: Poor Referrals: Liam Sadler MD [Primary Care Provider] - 1-2 days Time of Disposition: 11:43
[2024-02-05] MEDS ORDERED: IPRATROPIUM-ALBUTEROL 3 ML NEB INHALATION PRN (11:45)
[2024-02-05] MEDS: PREGABALIN 75 MG CAP PO SCH (15:09)
[2024-02-05] MEDS: HYDROcodone/APAP 10-325MG 1 EACH TAB PO PRN (15:09)
[2024-02-05] MEDS: CLOPIDOGREL 75 MG TAB PO SCH (15:14)
[2024-02-05] MEDS: METOPROLOL SUCCINATE (ER) 25 MG TAB.ER.24H PO SCH (15:16)
[2024-02-05] MEDS: FUROSEMIDE 10 MG/ML 4 ML VIAL IV SCH (15:16)
[2024-02-05] MEDS: DAPAGLIFLOZIN PROPANEDIOL 10 MG TABLET PO SCH (15:24)
[2024-02-05] MEDS: POTASSIUM CHLORIDE ER 10 MEQ TAB.ER.PRT PO SCH (15:24)
[2024-02-05 20:12] LABS: Glucose,Whole Blood 305 mg/dL (70-110)
[2024-02-05] MEDS ORDERED: DEXTROSE 50% SYRINGE 50 ML IVP PRN ×2 (20:41)
[2024-02-05] MEDS: SACUBITRIL/VALSARTAN 24 MG-26 MG TABLET PO SCH (21:10)
[2024-02-05] MEDS: INSULIN ASPART (NovoLOG) 100 UNIT/ML VIAL SQ SCH (21:12)
[2024-02-05] MEDS: INSULIN DETEMIR (LEVEMIR) 100 UNIT/ML SYR SQ SCH (22:19)
--- NOTE | 2024-02-05 22:50 | US ---
EXAMINATION TYPE: US venous doppler duplex LE LT DATE OF EXAM: 02/05/2024 10:05 PM COMPARISON: NONE CLINICAL INDICATION: Female, 73 years old with history of LT calf pain; Lt post calf pain x 2 days. N o hx of DVT. On blood thinners SIDE PERFORMED: Left TECHNIQUE: The lower extremity deep venous system is examined utilizing real time linear array sonog staci with graded compression, doppler sonography and color-flow sonography. VESSELS IMAGED: Common Femoral Vein Deep Femoral Vein Greater Saphenous Vein * Femoral Vein Popliteal Vein Small Saphenous Vein * Proximal Calf Veins (* superficial vessels) Left Leg: No evidence for DVT. Edema noted in post calf near pain Grayscale, color doppler, spectral doppler imaging performed of the deep veins of the left lower extr emity. There is normal flow, compressibility, vascular waveforms. IMPRESSION: No acute DVT in the left lower extremity. At least moderate subcutaneous edema at the ca lf level is noted towards end of study.
[2024-02-06 06:20] LABS: Glucose,Whole Blood 152 mg/dL (70-110)
[2024-02-06] MEDS ORDERED: ASPIRIN 325 MG TAB PO SCH (09:00)
[2024-02-06] MEDS ORDERED: busPIRone HCl 10 MG TAB PO PRN (09:15)
[2024-02-06] MEDS: ASPIRIN 81 MG PO SCH (09:18)
[2024-02-06 09:21] LABS: Chol/HDL Ratio 5.71 Ratio
--- NOTE | 2024-02-06 09:53 | CA ---
Transthoracic Echo Report Name: Marialuisa Foreman Age: 73 Gender: F : 1950 Exam Date: 02/05/2024 15:27 Exam Location: [facility] Ht (in): 65 Wt (lb): 247 Ordering Physician: Estrellita Hemls Attending/Referring Phys: [id number], Scooter Eye Dropper Assembler Jessica Snow RCS Procedure CPT: Indications: LVF Cardiac Hx: Technical Quality: Very technically difficult study Contrast 1: Definity Total Dose (mL): 2 Contrast 2: Total Dose (mL): MEASUREMENTS (Male / Female) Normal Values FINDINGS Left Ventricle Left ventricle not well visualized. Right Ventricle Right ventricle not well visualized. Right Atrium Right atrium not well visualized. Left Atrium Left atrium not well visualized. Mitral Valve Mitral valve not well visualized. Aortic Valve Aortic valve not well visualized. Tricuspid Valve Tricuspid valve not well visualized. Pulmonic Valve Pulmonic valve not well visualized. Pericardium No pericardial effusion. Aorta Aortic root and proximal ascending aorta not well visualized. CONCLUSIONS Extremely difficult study for interpretation The patient was unable to lay supine Cannot comment on the ejection fraction Previewed by: Dr. Cnotreras Cohen MD (Electronically Signed) Final Date: 06 February 2024 09:52
[2024-02-06 11:26] LABS: Glucose,Whole Blood 134 mg/dL (70-110)
[2024-02-06] MEDS: ARIPiprazole 5 MG TAB PO SCH (12:06)
[2024-02-06] MEDS ORDERED: ALPRAZolam 0.5 MG TAB PO PRN (12:47)
[2024-02-06] MEDS ORDERED: NITROGLYCERIN SL TABS 0.4 MG TAB SUBLINGUAL PRN (12:47)
[2024-02-06 13:16] LABS: African American GFR (CKD) 59 (>60 ml/min/1.73 sqM); Anion Gap 9 mmol/L; Blood Urea Nitrogen 20 mg/dL (7-17); Calcium 9.3 mg/dL (8.4-10.2); Carbon Dioxide 34 mmol/L (22-30); Chloride 97 mmol/L (98-107); Glucose 160 mg/dL (74-99); Non-African American GFR(CKD) 51 (>60 ml/min/1.73 sqM); Potassium 4.1 mmol/L (3.5-5.1); Sodium 140 mmol/L (137-145)
--- NOTE | 2024-02-06 13:51 | P.CRDCN ---
History of Present Illness Consult date: 02/05/24 Consult reason: chest pain History of present illness: History of present illness: This is a 73-year-old female patient of Dr. 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 She apparently had an echocardiogram done at her PCP office which showed a dilated left ventricle and diffuse global hypokinesis and moderate to severe LV dysfunction with EF of 35%. Patient had a previous EKG with right bundle branch block. No prior history of coronary artery disease or heart failure. Patient also had chest discomfort and for these reasons, patient was sent directly to [facility] emergency center for further evaluation and treatment. Patient states that the edema started all of a sudden. She was recently on Lasix 20 mg by her PCP but it did not seem to make a difference. Patient states she normally sleeps in a chair. She also complains of cough and wheezing since she has had the edema. While in the cardiology office, patient received 1 nitroglycerin. No dizziness no palpitations. No nausea or vomiting. Regarding orthopnea, this is been going on for very long time and also complicated by his severe back pain and previous surgery making it difficult for her to lay in the bed. Patient quit smoking a few months ago. EKG sinus rhythm Chest x-ray: Low lung volumes with generalized hazy appearance which could represent atelectasis versus pulmonary edema. CBC INR normal. CO2 33, BUN 14 creatinine 1.15. Blood sugar 305. Troponin negative x 3. proBNP 67. Triglycerides 317, cholesterol 266, LDL 156, HDL 46. Home cardiac medications: Plavix 75 mg daily, Jardiance 25 mg daily, Lasix 40 mg daily, Nitrostat as needed, potassium chloride 10 mill equivalents daily, Crestor 20 mg as directed, Entresto 24-26 mg twice daily. Review Of Systems: At the time of my exam: CONSTITUTIONAL: Denies fever or chills. HEENT: Denies blurred vision, vision changes, or eye pain. Denies hemoptysis CARDIOVASCULAR: + chest pain. + orthopnea. Denies PND. Denies palpitations + LE edema. RESPIRATORY: + shortness of breath. GASTROINTESTINAL: Denies abdominal pain. Denies nausea or vomiting. HEMATOLOGIC: Denies bleeding disorders. GENITOURINARY: Denies any blood in urine. SKIN: Denies pruitis. Denies rash. Physical examination: Gen: This is a morbidly obese 73-year-old female. VS: reviewed HEENT: Head is atraumatic, normocephalic. Pupils equal, round. Sclerae is anicteric. NECK: Supple. No JVD. LUNGS: Diminished breath sounds bilaterally. No intercostal retractions. HEART: Regular rate and rhythm. No murmur. ABDOMEN: Soft No tenderness. EXTREMITIES: 2+ pedal edema. No calf tenderness. NEUROLOGICAL: Patient is awake, alert and oriented x3. Assessment: Acute on chronic systolic heart failure Dilated cardiomyopathy Hyperlipidemia Diabetes mellitus type 2 insulin requiring Chest pain Peripheral artery disease COPD History of tobacco use and dependence, quit 2 months ago Plan: Resume patient's home cardiac medications Continue patient on IV Lasix at 40 mg every 8 hours Discontinue Zaroxolyn Resume Entresto, Farxiga Start patient on Toprol XL 25 mg daily Obtain 2-D echocardiogram and Doppler study to assess cardiac structure and function Plan for cardiac catheterization once patient is able to lay flat Further recommendations to follow based upon clinical course Thank you kindly for this consultation. Nurse practitioner note has been reviewed, I agree with documented findings and plan of care. Patient was seen and examined. Past Medical History Past Medical History: Blood Disorder, Heart Failure, COPD, Diabetes Mellitus, GERD/Reflux, Hyperlipidemia, Hypertension, Musculoskeletal Disorder Additional Past Medical History / Comment(s): CHRONIC BACK PAIN, DDD, Peripheral vascular disease History of Any Multi-Drug Resistant Organisms: None Reported Past Surgical History: Appendectomy, Back Surgery, Bowel Resection, Cholecystectomy, Hysterectomy, Joint Replacement, Orthopedic Surgery Additional Past Surgical History / Comment(s): 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, 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, HAS METAL IN BACK, KRISTINE CATARACTS, KRISTINE HIP REPLACEMENTS, KRISTINE HANDS TRIGGER FINGER SX'S; Shoulder Arthroscopy; has Fx R upper arm Past Anesthesia/Blood Transfusion Reactions: No Reported Reaction Past Psychological History: Depression Smoking Status: Former smoker Past Alcohol Use History: Occasional Past Drug Use History: None Reported - Past Family History Mother Family Medical History: Cancer, Coronary Artery Disease (CAD) Additional Family Medical History / Comment(s): MOTHER HAD STOMACH CANCER Father Family Medical History: Coronary Artery Disease (CAD), Diabetes Mellitus Brother(s) Family Medical History: Cancer Additional Family Medical History / Comment(s): BROTHER HAD PROSTATE CANCER Medications and Allergies Home Medications Medication Instructions Recorded Confirmed Type Clopidogrel [Plavix] 75 mg PO DAILY 06/17/14 02/05/24 History Furosemide [Lasix] 40 mg PO DAILY 06/17/14 02/05/24 History HYDROcodone/APAP 10-325MG [Timber 1 tab PO Q6HR 06/17/14 02/05/24 History 10-325] rOPINIRole HCL [Requip] 2 mg PO TID 06/17/14 02/05/24 History Loratadine [Claritin] 10 mg PO BID 06/17/18 02/05/24 History Montelukast [Singulair] 10 mg PO HS 06/17/18 02/05/24 History Potassium Chloride [K-Tab ER] 10 meq PO DAILY 02/05/19 02/05/24 History Pantoprazole Sodium [Protonix] 40 mg PO BID #60 tablet. 02/08/19 02/05/24 Rx ARIPiprazole [Abilify] 5 mg PO DAILY 02/05/24 02/05/24 History Albuterol Inhaler [Ventolin Hfa 1 - 2 puff INHALATION RT-Q6H PRN 02/05/24 02/05/24 History Inhaler] Ammonium Lactate Lotion 1 applic TOPICAL BID PRN 02/05/24 02/05/24 History [Lac-Hydrin 12% Lotion] Celecoxib [CeleBREX] 200 mg PO DAILY 02/05/24 02/05/24 History Cinnamon Bark [Cinnamon] 2,000 mg PO DAILY 02/05/24 02/05/24 History EPINEPHrine (Auto Inject) [Epipen] 0.3 mg IM ONCE PRN 02/05/24 02/05/24 History Empagliflozin [Jardiance] 25 mg PO DAILY 02/05/24 02/05/24 History Ergocalciferol (Vitamin D2) 1,250 mcg PO DIRECTED 02/05/24 02/05/24 History [Drisdol (50,000 Iu)] Fluticasone Nasal [place] [Flonase 2 spray EA NOSTRIL HS 02/05/24 02/05/24 History Nasal [place]] Fluticasone/Umeclidin/Vilanter 1 puff INHALATION RT-DAILY 02/05/24 02/05/24 History [Trelegy Ellipta 200-62.5-25] Insulin Glargine,Hum.rec.anlog 46 units SQ HS 02/05/24 02/05/24 History [Lantus Solostar Pen] Melatonin 10 mg PO HS 02/05/24 02/05/24 History Mirabegron [Myrbetriq] 50 mg PO DAILY 02/05/24 02/05/24 History Multivit-Min/Iron/Folic/Lutein 1 tab PO DAILY 02/05/24 02/05/24 History [Centrum Silver Women Tablet] Nitroglycerin Sl Tabs [Nitrostat] 0.4 mg SUBLINGUAL Q5M PRN 02/05/24 02/05/24 History Pregabalin [Lyrica] 150 mg PO TID 02/05/24 02/05/24 History Rosuvastatin [Crestor] 20 mg PO DIRECTED 02/05/24 02/05/24 History Sacubitril/Valsartan [Entresto 24 1 tab PO BID 02/05/24 02/05/24 History mg-26 mg Tablet] Sacubitril/Valsartan [Entresto 49 1 tab PO DIRECTED 02/05/24 02/05/24 History mg-51 mg Tablet] Sulfamethox-Tmp 400-80Mg [Bactrim 1 tab PO NESS 02/05/24 02/05/24 History SS 400-80 mg] Tamsulosin [Flomax] 0.4 mg PO DAILY 02/05/24 02/05/24 History busPIRone HCl [Buspar] 10 mg PO BID PRN 02/05/24 02/05/24 History diphenhydrAMINE [Benadryl] 50 mg PO HS 02/05/24 02/05/24 History tiZANidine [Zanaflex] 4 mg PO BID 02/05/24 02/05/24 History Allergies Allergy/AdvReac Type Severity Reaction Status Date / Time buprenorphine HCl Allergy Rash/Hives Verified 02/05/24 13:23 [From Buprenex] Iodinated Contrast Media Allergy Rash/Hives Verified 02/05/24 13:23 [Iodinated Contrast- Oral and IV Dye] latex Allergy skin Verified 02/05/24 13:23 cracks and bleeds Penicillins Allergy Anaphylaxis Verified 02/05/24 13:23 prochlorperazine maleate Allergy Anaphylaxis Verified 02/05/24 13:23 [From Compazine] codeine AdvReac Nausea & Verified 02/05/24 13:23 Vomiting morphine AdvReac Abdominal Verified 02/05/24 13:23 Pain prochlorperazine edisylate AdvReac Anaphylaxis Verified 02/05/24 13:23 [From Compazine] ivp dye Allergy Rash/Hives Uncoded 02/05/24 13:24 Physical Exam Vitals: Vital Signs Temp Pulse Resp BP Pulse Ox 02/05/24 11:44 87 16 121/67 97 02/05/24 09:50 97.5 F L 79 18 120/66 98 Intake and Output 02/04/24 02/05/24 02/05/24 22:59 06:59 14:59 Other: Weight 112.037 kg Results 02/05/24 10:04 02/06/24 10:47 Cardiac Enzymes 02/05/24 02/05/24 02/05/24 Range/Units 10:04 10:04 12:25 AST 26 (14-36) U/L Troponin I <0.012 <0.012 (0.000-0.034) ng/mL Coagulation 02/05/24 Range/Units 10:04 PT 9.8 L (10.0-12.5) sec APTT 23.5 (22.0-30.0) sec CBC 02/05/24 Range/Units 10:04 WBC 6.8 (3.8-10.6) k/uL RBC 4.75 (3.80-5.40) m/uL Hgb 13.7 (11.4-16.0) gm/dL Hct 43.3 (34.0-46.0) % Plt Count 204 (150-450) k/uL Comprehensive Metabolic Panel 02/05/24 Range/Units 10:04 Sodium 141 (137-145) mmol/L Potassium 4.3 (3.5-5.1) mmol/L Chloride 104 (98-107) mmol/L Carbon Dioxide 33 H (22-30) mmol/L BUN 14 (7-17) mg/dL Creatinine 1.15 H (0.52-1.04) mg/dL Glucose 172 H (74-99) mg/dL Calcium 9.3 (8.4-10.2) mg/dL AST 26 (14-36) U/L ALT 16 (4-34) U/L Alkaline Phosphatase 79 (38-126) U/L Total Protein 6.7 (6.3-8.2) g/dL Albumin 3.6 (3.5-5.0) g/dL Current Medications Generic Name Dose Route Start Last Admin Trade Name Freq PRN Reason Stop Dose Admin Albuterol/Ipratropium 3 ml 02/05/24 11:45 Ipratropium-Albuterol 3 Ml Neb INHALATION RT-QID PRN Shortness Of Breath Or Wheezing Aspirin 325 mg 02/06/24 09:00 Aspirin 325 Mg Tab PO DAILY NICOLE Nitroglycerin 0.4 mg 02/05/24 11:44 Nitroglycerin Sl Tabs 0.4 Mg Tab SUBLINGUAL Q5M PRN Chest Pain Intake and Output 02/04/24 02/05/24 02/05/24 22:59 06:59 14:59 Other: Weight 112.037 kg Patient Weight 02/06/24 06:59 Weight 112.037 kg 02/05/24 10:04 02/05/24 10:04
--- NOTE | 2024-02-06 14:06 | P.PN ---
Subjective Progress Note Date: 02/06/24 History of present illness: This is a 73-year-old female patient of Dr. 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 She had an echocardiogram done at her PCP office which showed a dilated left ventricle and diffuse global hypokinesis and moderate to severe LV dysfunction with EF of 35%. Patient had a previous EKG with right bundle branch block. No prior history of coronary artery disease or heart failure. Patient also had chest discomfort and for these reasons, patient was sent directly to [facility] emergency center for further evaluation and treatment. Patient states that the edema started all of a sudden. She was recently on Lasix 20 mg by her PCP but it did not seem to make a difference. Patient states she normally sleeps in a chair. She also complains of cough and wheezing since she has had the edema. While in the cardiology office, patient received 1 nitroglycerin. No dizziness no palpitations. No nausea or vomiting. Regarding orthopnea, this is been going on for very long time and also complicated by his severe back pain and previous surgery making it difficult for her to lay in the bed. Patient quit smoking a few months ago. EKG sinus rhythm Chest x-ray: Low lung volumes with generalized hazy appearance which could represent atelectasis versus pulmonary edema. CBC INR normal. CO2 33, BUN 14 creatinine 1.15. Blood sugar 305. Troponin negative x 3. proBNP 67. Triglycerides 317, cholesterol 266, LDL 156, HDL 46. Home cardiac medications: Plavix 75 mg daily, Jardiance 25 mg daily, Lasix 40 mg daily, Nitrostat as needed, potassium chloride 10 mill equivalents daily, Rupesh tor 20 mg as directed, Entresto 24-26 mg twice daily. 02/05 Patient has been maintained on IV Lasix 40 mg every 8 hours. She has a negative fluid balance yesterday of 3240 and a negative fluid balance today. Blood pressure 119/69, heart rate 89, pulse ox 98% on 2 L nasal cannula. Patient states that she is still not able to lay flat. Edema is much better. She feels like her shortness of breath is about the same. She denies having any chest pain. Venous Doppler of the left lower extremity is negative for DVT. Echocardiogram reveals extremely difficult study for interpretation. Patient is unable to lay supine. Cannot comment on the EF. Physical examination: Gen: This is a morbidly obese 73-year-old female. VS: reviewed HEENT: Head is atraumatic, normocephalic. Pupils equal, round. Sclerae is anicteric. NECK: Supple. No JVD. LUNGS: Diminished breath sounds bilaterally. No intercostal retractions. HEART: Regular rate and rhythm. No murmur. ABDOMEN: Soft No tenderness. EXTREMITIES: 1+ pedal edema. No calf tenderness. NEUROLOGICAL: Patient is awake, alert and oriented x3. Assessment: Acute on chronic systolic heart failure Dilated cardiomyopathy Hyperlipidemia Diabetes mellitus type 2 insulin requiring Chest pain Peripheral artery disease COPD History of tobacco use and dependence, quit 2 months ago Plan: Continue current cardiac medications Continue patient on IV Lasix at 40 mg decrease frequency to every 12 hours Plan for cardiac catheterization tomorrow morning with Dr. Tucker Yu if patient is able to lay flat Further recommendations to follow based upon clinical course Thank you kindly for this consultation. Nurse practitioner note has been reviewed, I agree with documented findings and plan of care. Patient was seen and examined. Objective - Vital Signs Vital signs: Vital Signs Temp 97.8 F 02/06/24 09:10 Pulse 81 02/06/24 09:10 Resp 16 02/06/24 09:10 BP 119/69 02/06/24 09:10 Pulse Ox 93 L 02/06/24 09:10 FiO2 Intake & Output 02/05/24 02/06/24 02/06/24 18:59 06:59 18:59 Intake Total 160 240 Output Total 2800 600 Balance -2640 -600 240 Weight 112.037 kg 109.4 kg Intake: Oral 160 240 Output: Urine 2800 600 Other: Voiding Method External Catheter External Catheter External Catheter - Labs CBC & Chem 7: 02/05/24 10:04 02/06/24 10:47 Labs: Abnormal Lab Results - Last 24 Hours (Table) 02/05/24 02/05/24 02/06/24 Range/Units 10:04 20:11 06:18 POC Glucose (mg/dL) 305 H 152 H (70-110) mg/dL Triglycerides 317.00 H (0.00-149.00) mg/dL Cholesterol 266.00 H (0.00-200.00) mg/dL LDL Cholesterol, Calc 156.0 H (0.0-131.0) mg/dL VLDL Cholesterol, Calc 63.40 H (5.00-40.00) mg/dL 02/06/24 Range/Units 11:25 POC Glucose (mg/dL) 134 H (70-110) mg/dL Triglycerides (0.00-149.00) mg/dL Cholesterol (0.00-200.00) mg/dL LDL Cholesterol, Calc (0.0-131.0) mg/dL VLDL Cholesterol, Calc (5.00-40.00) mg/dL
--- NOTE | 2024-02-06 16:50 | P.HPIM ---
History of Present Illness H&P Date: 02/06/24 Chief Complaint: Left lateral chest wall pain This is a 73-year-old female with past medical history significant for COPD, morbid obesity, systolic CHF, hypertension, hyperlipidemia, diabetes mellitus, gastroesophageal reflux disease, laparoscopic gastric banding, chronic back pain,PAD,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 While at cardiology appointment patient complained of left lateral chest pain ,worsening shortness of breath, bilateral lower extremity edema, accompanied by weight gain and decreased energy over the last 2-3 weeks. Echo at PCPs office reported dilated left ventricle, diffuse global hypokinesis, moderate to severe LV dysfunction, EF 35%. Lasix had recently been increased by PCP but patient states did not notice any difference. Compliant with her me dications including Entresto. denies additional salt intake. Positive orthopnea, normally sleeps in a chair, able to lie flat. Denies syncope. Denies lightheadedness, dizziness or focal deficits. Denies nausea vomiting or diarrhea. Denies abdominal pain. EKG sinus rhythm. Chest x-ray reported low lung volumes with generalized hazy appearance which could represent atelectasis versus pulmonary edema. Troponins negative x 3, proBNP 67, triglycerides 317, cholesterol 266, LDL 156, HDL 46, bicarb 34, BUN 20, creatinine decreasing to 1.08 from 1.15. Hematology and coagulation panel unremarkable. Blood sugars better controlled, elevated on admission. Venous Doppler of left lower extremit y reported no evidence for DVT, moderate subcutaneous edema at the calf level. EKG recently repeated, results pending. Diuresing well on Lasix IV push, with 24-hour LAUREN reflecting a negative fluid balance. Maintaining O2 sats in the high 90s on 2 L nasal cannula. Review of Systems ROS Statement: Those systems with pertinent positive or pertinent negative responses have been documented in the HPI. ROS Other: All systems not noted in ROS Statement are negative. Past Medical History Past Medical History: Heart Failure, COPD, Diabetes Mellitus, GERD/Reflux, Hypertension, Sleep Apnea/CPAP/BIPAP Additional Past Medical History / Comment(s): CHRONIC BACK PAIN, DDD, Peripheral vascular disease History of Any Multi-Drug Resistant Organisms: None Reported Past Surgical History: Appendectomy, Back Surgery, Bowel Resection, Cholecystectomy, Hysterectomy, Joint Replacement, Orthopedic Surgery Additional Past Surgical History / Comment(s): 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, 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, HAS METAL IN BACK, KRISTINE CATARACTS, KRISTINE HIP REPLACEMENTS, KRISTINE HANDS TRIGGER FINGER SX'S; Shoulder Arthroscopy; has Fx R upper arm, lap band Past Anesthesia/Blood Transfusion Reactions: No Reported Reaction, Previous Problems w/ Anesthesia Additional Past Anesthesia/Blood Transfusion Reaction / Comment(s): trouble waking up from anesthesia Past Psychological History: Depression Smoking Status: Former smoker Past Alcohol Use History: Occasional Additional Past Alcohol Use History / Comment(s): SMOKES 1 PPD FROM AGE 20 1970 Past Drug Use History: None Reported - Past Family History Mother Family Medical History: Cancer, Coronary Artery Disease (CAD) Additional Family Medical History / Comment(s): MOTHER HAD STOMACH CANCER Father Family Medical History: Coronary Artery Disease (CAD), Diabetes Mellitus Brother(s) Family Medical History: Cancer Additional Family Medical History / Comment(s): BROTHER HAD PROSTATE CANCER Medications and Allergies Home Medications Medication Instructions Recorded Confirmed Type Clopidogrel [Plavix] 75 mg PO DAILY 06/17/14 02/05/24 History Furosemide [Lasix] 40 mg PO DAILY 06/17/14 02/05/24 History HYDROcodone/APAP 10-325MG [Garner 1 tab PO Q6HR 06/17/14 02/05/24 History 10-325] rOPINIRole HCL [Requip] 2 mg PO TID 06/17/14 02/05/24 History Loratadine [Claritin] 10 mg PO BID 06/17/18 02/05/24 History Montelukast [Singulair] 10 mg PO HS 06/17/18 02/05/24 History Potassium Chloride [K-Tab ER] 10 meq PO DAILY 02/05/19 02/05/24 History Pantoprazole Sodium [Protonix] 40 mg PO BID #60 tablet.dr 02/08/19 02/05/24 Rx ARIPiprazole [Abilify] 5 mg PO DAILY 02/05/24 02/05/24 History Albuterol Inhaler [Ventolin Hfa 1 - 2 puff INHALATION RT-Q6H PRN 02/05/24 02/05/24 History Inhaler] Ammonium Lactate Lotion 1 applic TOPICAL BID PRN 02/05/24 02/05/24 History [Lac-Hydrin 12% Lotion] Celecoxib [CeleBREX] 200 mg PO DAILY 02/05/24 02/05/24 History Cinnamon Bark [Cinnamon] 2,000 mg PO DAILY 02/05/24 02/05/24 History EPINEPHrine (Auto Inject) [Epipen] 0.3 mg IM ONCE PRN 02/05/24 02/05/24 History Empagliflozin [Jardiance] 25 mg PO DAILY 02/05/24 02/05/24 History Ergocalciferol (Vitamin D2) 1,250 mcg PO DIRECTED 02/05/24 02/05/24 History [Drisdol (50,000 Iu)] Fluticasone Nasal Matthews [Flonase 2 spray EA NOSTRIL HS 02/05/24 02/05/24 History Nasal Matthews] Fluticasone/Umeclidin/Vilanter 1 puff INHALATION RT-DAILY 02/05/24 02/05/24 History [Trelegy Ellipta 200-62.5-25] Insulin Glargine,Hum.rec.anlog 46 units SQ HS 02/05/24 02/05/24 History [Lantus Solostar Pen] Melatonin 10 mg PO HS 02/05/24 02/05/24 History Mirabegron [Myrbetriq] 50 mg PO DAILY 02/05/24 02/05/24 History Multivit-Min/Iron/Folic/Lutein 1 tab PO DAILY 02/05/24 02/05/24 History [Centrum Silver Women Tablet] Nitroglycerin Sl Tabs [Nitrostat] 0.4 mg SUBLINGUAL Q5M PRN 02/05/24 02/05/24 History Pregabalin [Lyrica] 150 mg PO TID 02/05/24 02/05/24 History Rosuvastatin [Crestor] 20 mg PO DIRECTED 02/05/24 02/05/24 History Sacubitril/Valsartan [Entresto 24 1 tab PO BID 02/05/24 02/05/24 History mg-26 mg Tablet] Sacubitril/Valsartan [Entresto 49 1 tab PO DIRECTED 02/05/24 02/05/24 History mg-51 mg Tablet] Sulfamethox-Tmp 400-80Mg [Bactrim 1 tab PO NESS 02/05/24 02/05/24 History SS 400-80 mg] Tamsulosin [Flomax] 0.4 mg PO DAILY 02/05/24 02/05/24 History busPIRone HCl [Buspar] 10 mg PO BID PRN 02/05/24 02/05/24 History diphenhydrAMINE [Benadryl] 50 mg PO HS 02/05/24 02/05/24 History tiZANidine [Zanaflex] 4 mg PO BID 02/05/24 02/05/24 History Allergies Allergy/AdvReac Type Severity Reaction Status Date / Time buprenorphine HCl Allergy Rash/Hives Verified 02/05/24 13:23 [From Buprenex] Iodinated Contrast Media Allergy Rash/Hives Verified 02/05/24 13:23 [Iodinated Contrast- Oral and IV Dye] latex Allergy skin Verified 02/05/24 13:23 cracks and bleeds Penicillins Allergy Anaphylaxis Verified 02/05/24 13:23 prochlorperazine maleate Allergy Anaphylaxis Verified 02/05/24 13:23 [From Compazine] codeine AdvReac Nausea & Verified 02/05/24 13:23 Vomiting morphine AdvReac Abdominal Verified 02/05/24 13:23 Pain prochlorperazine edisylate AdvReac Anaphylaxis Verified 02/05/24 13:23 [From Compazine] ivp dye Allergy Rash/Hives Uncoded 02/05/24 13:24 Physical Exam Vitals: Vital Signs Temp Pulse Pulse Resp BP BP BP 02/06/24 09:10 97.8 F 81 16 119/69 02/06/24 04:00 97.4 F L 83 18 106/68 02/06/24 02:00 20 02/06/24 00:17 02/06/24 00:05 97.4 F L 78 16 125/77 02/05/24 20:00 20 02/05/24 19:56 97.6 F 77 17 114/72 02/05/24 18:28 97.9 F 91 16 140/67 02/05/24 16:00 97.2 F L 98 16 119/93 02/05/24 13:39 93 20 143/81 02/05/24 11:44 87 16 121/67 Pulse Ox 02/06/24 09:10 93 L 02/06/24 04:00 100 02/06/24 02:00 02/06/24 00:17 98 02/06/24 00:05 91 L 02/05/24 20:00 02/05/24 19:56 93 L 02/05/24 18:28 96 02/05/24 16:00 95 02/05/24 13:39 99 02/05/24 11:44 97 Intake and Output 02/05/24 02/06/24 02/06/24 22:59 06:59 14:59 Intake Total 240 Output Total 2100 Balance -2099 240 Intake: Oral 240 Output: Urine 2100 Other: Voiding Method External Catheter External Catheter External Catheter Weight 112.037 kg 109.4 kg PHYSICAL EXAM: VITAL SIGNS: [As above] GENERAL: Obese, alert and oriented x 3, sitting up in bed, no acute distress HEENT: Normal cephalic, conjunctivae normal. eyes normal. NECK: Supple, no JVD. No thyroid enlargement. No LNs CARDIOVASCULAR: S1, S2 regular. No murmur RESPIRATION: Unlabored, equal air entry, expiratory wheezing at bilateral bases ABDOMEN: Soft, obese, nontender . No guarding. no masses palpable. No ascites, No hepatosplenomegaly.Bowel sounds heard. LEGS: Left transmetatarsal amputation on the left and right great toe,left lower extremity decreased edema, tender, pink PSYCHIATRY: Alert and oriented X3, mood and affect normal. NERVOUS SYSTEM: Cranial N 2-12 grossly normal.No focal deficits. Strength and sensation grossly intact. Skin: Warm and dry, no rash Results CBC & Chem 7: 02/05/24 10:04 02/06/24 10:47 Labs: Abnormal Lab Results - Last 24 Hours (Table) 02/05/24 02/05/24 02/06/24 Range/Units 10:04 20:11 06:18 POC Glucose (mg/dL) 305 H 152 H (70-110) mg/dL Triglycerides 317.00 H (0.00-149.00) mg/dL Cholesterol 266.00 H (0.00-200.00) mg/dL LDL Cholesterol, Calc 156.0 H (0.0-131.0) mg/dL VLDL Cholesterol, Calc 63.40 H (5.00-40.00) mg/dL Thrombosis Risk Factor Assmnt - Choose All That Apply Each Factor Represents 1 point: Abnormal pulmonary function (COPD), Heart failure (<1month) Each Risk Factor Represents 2 Points: Age 61-74 years Thrombosis Risk Factor Assessment Total Risk Factor Score: 4 Thrombosis Risk Factor Assessment Level: Moderate Risk Assessment and Plan Assessment: Acute on chronic CHF Dilated cardiomyopathy Acute hypoxic respiratory failure secondary to the above COPD Chest pain, left chest wall Diabetes mellitus PAD Nicotine dependence, recently quit a couple months ago Plan: Continue on current medication regimen ,monitoring and symptomatic treatment. Diuretics as per cardiology. Cardiology discussing cardiac catheterization once her pulmonary status improves and able to lie flat. Close monitoring of renal function with repeat labs ordered for a.m. Tight blood sugar control.Procalcitonin ordered, ruling out bacterial infection of left lower extremity. The impression and plan of care has been dictated as directed. : I performed a history and examination of this patient, discussed the same with the dictator. I agree with the dictator's note ,documented as a scribe. Any additional findings or plans will be noted.
[2024-02-06 16:51] LABS: Glucose,Whole Blood 154 mg/dL (70-110)
[2024-02-06] MEDS: PANTOPRAZOLE 40 MG TABLET PO SCH (17:36)
[2024-02-06 20:17] LABS: Glucose,Whole Blood 241 mg/dL (70-110)
[2024-02-06] MEDS ORDERED: PROCHLORPERAZINE INJ 10 MG/2 ML VIAL IVP STA (20:21)
[2024-02-06] MEDS: MONTELUKAST 10 MG TAB PO SCH (20:44)
[2024-02-06] MEDS: FUROSEMIDE 10 MG/ML 4 ML VIAL IV SCH (20:44)
[2024-02-06] MEDS: hydrOXYzine pamoate 25 MG CAP PO ONE (20:44)
[2024-02-07 01:56] LABS: Glucose,Whole Blood 202 mg/dL (70-110)
[2024-02-07 05:16] LABS: Glucose,Whole Blood 201 mg/dL (70-110)
[2024-02-07] MEDS: ATORVASTATIN 80 MG TAB PO ONE (05:28)
[2024-02-07] MEDS: ASPIRIN 325 MG TAB PO ONE (05:28)
[2024-02-07] MEDS: ALPRAZolam 0.25 MG TAB PO PRN (05:28)
[2024-02-07] MEDS ORDERED: HEPARIN SODIUM,PORCINE 10,000 UNIT in SODIUM CHLORIDE 0.9% 1,000 ML IRRIGATION PRN (07:00)
[2024-02-07] MEDS ORDERED: HEPARIN SODIUM,PORCINE (1 ML) 2,500 UNIT in SODIUM CHLORIDE 0.9% 250 ML IRRIGATION PRN (07:00)
[2024-02-07] MEDS ORDERED: VERAPAMIL 2.5 MG/ML 2 ML AMP ONE (07:17)
[2024-02-07] MEDS ORDERED: methylPREDNISolone SOD SUCCI 125 MG/2 ML VIAL ONE (07:17)
[2024-02-07] MEDS ORDERED: diphenhydrAMINE 50 MG/ML 1 ML VIAL ONE (07:17)
[2024-02-07] MEDS: IV FLUID CONTINUATION 1,000 ML IV ONE (07:26)
[2024-02-07] MEDS: diphenhydrAMINE 50 MG/ML 1 ML VIAL IVP ONE (07:31)
[2024-02-07] MEDS: methylPREDNISolone SOD SUCCI 125 MG/2 ML VIAL IVP ONE (07:31)
[2024-02-07] MEDS: LIDOCAINE 2% (PF) 20 MG/ML 5 ML VIAL SQ ONE (07:34)
[2024-02-07] MEDS: MIDAZOLAM 2 MG/2 ML VIAL IVP ONE (07:34)
[2024-02-07] MEDS: VERAPAMIL SYRINGE (5 MG/10 ML) INTRAARTER ONE (07:42)
[2024-02-07] MEDS ORDERED: HEPARIN SODIUM 1,000 UN/ML (10ML VL) ONE (07:43)
[2024-02-07] MEDS: HEPARIN SODIUM 1,000 UN/ML (10ML VL) IVP ONE (07:44)
[2024-02-07] MEDS: IOPAMIDOL-370 100ML BTL INTRATHECA ONE (07:52)
[2024-02-07 08:34] VITALS: RESP 16; TEMP 97.5
--- NOTE | 2024-02-07 08:34 | CC ---
CARDIAC CATHETERIZATION REPORT INDICATION: Unstable angina and new onset cardiomyopathy with congestive heart failure. PROCEDURE NOTE: After obtaining informed consent, left heart catheterization and coronary angiogram were performed via the right radial artery using standard Carisa catheters. The patient tolerated the procedure well without any obvious immediate complications. The patient received moderate conscious sedation. Total sedation time was 16 minutes. A TR band was used for hemostasis. Right radial artery access was obtained using Seldinger technique. A 6-Slovak sheath was placed. Catheters and wires were floated into the ascending aorta under fluoroscopic guidance. The patient received verapamil and heparin per protocol. The patient had IV dye allergy and received Solu-Medrol and Benadryl prior. FINDINGS: 1. Hemodynamics: Left ventricular end-diastolic pressure is 7 mm. There is no significant gradient across the aortic valve. 2. Left ventriculogram: Left ventriculogram is not performed. 3. Angiographic data: a.Right coronary artery: Right coronary artery is a large codominant vessel and is free of significant stenosis. Left main coronary artery is a very short vessel, divides into left anterior descending coronary artery and circumflex coronary artery. LAD and its branches, circumflex coronary artery and its branches are free of significant stenosis. CONCLUSIONS: 1. Normal coronary arteries. 2. Normal left ventricular end-diastolic pressure. PLAN: I believe the patient's cardiomyopathy is nonischemic in etiology. I am going to repeat an echo on her today. MMODL / IJN: [id number] /
[2024-02-07] MEDS: FUROSEMIDE 40 MG TAB PO SCH (09:02)
[2024-02-07 11:21] LABS: Glucose,Whole Blood 259 mg/dL (70-110)
[2024-02-07 11:25] LABS: African American GFR (CKD) 57 (>60 ml/min/1.73 sqM); Anion Gap 8 mmol/L; Blood Urea Nitrogen 25 mg/dL (7-17); Calcium 9.3 mg/dL (8.4-10.2); Carbon Dioxide 31 mmol/L (22-30); Chloride 101 mmol/L (98-107); Glucose 287 mg/dL (74-99); Non-African American GFR(CKD) 50 (>60 ml/min/1.73 sqM); Potassium 4.2 mmol/L (3.5-5.1); Sodium 140 mmol/L (137-145)
[2024-02-07 12:34] VITALS: BP 131/74; PULSE 94
--- NOTE | 2024-02-07 14:01 | P.PN ---
Subjective Progress Note Date: 02/07/24 History of present illness: This is a 73-year-old female patient of Dr. 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 Patient was seen in the [facility] die [facility] office today as follow-up with progressive worsening shortness of breath leg edema and weight gain for the past 3 weeks. She had an echocardiogram done at her PCP office which showed a dilated left ventricle and diffuse global hypokinesis and moderate to severe LV dysfunction with EF of 35%. Patient had a previous EKG with right bundle branch block. No prior history of coronary artery disease or heart failure. Patient also had chest discomfort and for these reasons, patient was sent directly to [facility] emergency center for further evaluation and treatment. Patient states that the edema started all of a sudden. She was recently on Lasix 20 mg by her PCP but it did not seem to make a difference. Patient states she normally sleeps in a chair. She also complains of cough and wheezing since she has had the edema. While in the cardiology office, patient received 1 nitroglycerin. No dizziness no palpitations. No nausea or vomiting. Regarding orthopnea, this is been going on for very long time and also complicated by his severe back pain and previous surgery making it difficult for her to lay in the bed. Patient quit smoking a few months ago. EKG sinus rhythm Chest x-ray: Low lung volumes with generalized hazy appearance which could represent atelectasis versus pulmonary edema. CBC INR normal. CO2 33, BUN 14 creatinine 1.15. Blood sugar 305. Troponin negative x 3. proBNP 67. Triglycerides 317, cholesterol 266, LDL 156, HDL 46. Home cardiac medications: Plavix 75 mg daily, Jardiance 25 mg daily, Lasix 40 mg daily, Nitrostat as needed, potassium chloride 10 mill equivalents daily, Rupesh tor 20 mg as directed, Entresto 24-26 mg twice daily. 02/05 Patient has been maintained on IV Lasix 40 mg every 8 hours. She has a negative fluid balance yesterday of 3240 and a negative fluid balance today. Blood pressure 119/69, heart rate 89, pulse ox 98% on 2 L nasal cannula. Patient states that she is still not able to lay flat. Edema is much better. She feels like her shortness of breath is about the same. She denies having any chest pain. Venous Doppler of the left lower extremity is negative for DVT. Echocardiogram reveals extremely difficult study for interpretation. Patient is unable to lay supine. Cannot comment on the EF. 02/06 Patient's lower extremity edema has resolved. She underwent cardiac catheterization this morning with Dr. Tucker Yu which revealed normal coronary arteries. Patient was able to lay flat for the cath so we will ask for repeat echocardiogram. She is been maintained on IV Lasix 40 mg every 12 hours. She had a negative fluid balance yesterday and loss of 3 kg. Repeat blood work reveals sodium 140, potassium 4.2, BUN 25 creatinine 1.1. Physical examination: Gen: This is a morbidly obese 73-year-old female. VS: reviewed HEENT: Head is atraumatic, normocephalic. Pupils equal, round. Sclerae is anicteric. NECK: Supple. No JVD. LUNGS: Diminished breath sounds bilaterally. No intercostal retractions. HEART: Regular rate and rhythm. No murmur. ABDOMEN: Soft No tenderness. EXTREMITIES: 1+ pedal edema. No calf tenderness. NEUROLOGICAL: Patient is awake, alert and oriented x3. Assessment: Acute on chronic systolic heart failure Dilated cardiomyopathy Hyperlipidemia Diabetes mellitus type 2 insulin requiring Chest pain Peripheral artery disease COPD History of tobacco use and dependence, quit 2 months ago Plan: Continue current cardiac medications Transition IV Lasix to oral 40 mg twice daily Attempt to repeat echocardiogram Patient is cleared from cardiology for discharge and may follow-up with Dr. Tucker Yu in 2 weeks. Nurse practitioner note has been reviewed, I agree with documented findings and plan of care. Patient was seen and examined. Objective - Vital Signs Vital signs: Vital Signs Temp 97.5 F L 02/07/24 08:13 Pulse 86 02/07/24 08:13 Resp 16 02/07/24 08:13 BP 114/74 02/07/24 08:13 Pulse Ox 92 L 02/07/24 08:13 FiO2 Intake & Output 02/06/24 02/07/24 02/07/24 18:59 06:59 18:59 Intake Total 720 540 150 Output Total 1300 Balance -580 540 150 Weight 106.1 kg Intake: IV 150 Oral 720 540 Output: Urine 1300 Other: Voiding Method External Catheter External Catheter - Labs CBC & Chem 7: 02/05/24 10:04 02/07/24 10:38 Labs: Abnormal Lab Results - Last 24 Hours (Table) 02/05/24 02/06/24 02/06/24 Range/Units 10:04 10:47 11:25 Chloride 97 L (98-107) mmol/L Carbon Dioxide 34 H (22-30) mmol/L BUN 20 H (7-17) mg/dL Creatinine 1.08 H (0.52-1.04) mg/dL Glucose 160 H (74-99) mg/dL POC Glucose (mg/dL) 134 H (70-110) mg/dL Triglycerides 317.00 H (0.00-149.00) mg/dL Cholesterol 266.00 H (0.00-200.00) mg/dL LDL Cholesterol, Calc 156.0 H (0.0-131.0) mg/dL VLDL Cholesterol, Calc 63.40 H (5.00-40.00) mg/dL 02/06/24 02/06/24 02/07/24 Range/Units 16:50 20:15 01:55 Chloride (98-107) mmol/L Carbon Dioxide (22-30) mmol/L BUN (7-17) mg/dL Creatinine (0.52-1.04) mg/dL Glucose (74-99) mg/dL POC Glucose (mg/dL) 154 H 241 H 202 H (70-110) mg/dL Triglycerides (0.00-149.00) mg/dL Cholesterol (0.00-200.00) mg/dL LDL Cholesterol, Calc (0.0-131.0) mg/dL VLDL Cholesterol, Calc (5.00-40.00) mg/dL 02/07/24 Range/Units 05:13 Chloride (98-107) mmol/L Carbon Dioxide (22-30) mmol/L BUN (7-17) mg/dL Creatinine (0.52-1.04) mg/dL Glucose (74-99) mg/dL POC Glucose (mg/dL) 201 H (70-110) mg/dL Triglycerides (0.00-149.00) mg/dL Cholesterol (0.00-200.00) mg/dL LDL Cholesterol, Calc (0.0-131.0) mg/dL VLDL Cholesterol, Calc (5.00-40.00) mg/dL
--- NOTE | 2024-02-07 17:53 | CA ---
Transthoracic Echo Report Name: Marialuisa Foreman Age: 73 Gender: F : 1950 Exam Date: 02/07/2024 09:18 Exam Location: [facility] Ht (in): 65 Wt (lb): 233 Ordering Physician: Estrellita Helms Attending/Referring Phys: [id number], [employer] Jessica Snow RCS Procedure CPT: Indications: LVF Cardiac Hx: Technical Quality: Very technically difficult study Contrast 1: Definity Total Dose (mL): 4 Contrast 2: Total Dose (mL): MEASUREMENTS (Male / Female) Normal Values DOPPLER AV Peak Velocity 185.6 cm/s AV Peak Gradient 13.8 mmHg AV Mean Velocity 120.0 cm/s AV Mean Gradient 6.9 mmHg AV Velocity Time Integral 32.7 cm LVOT Peak Velocity 122.2 cm/s LVOT Peak Gradient 6.0 mmHg LVOT Velocity Time Integral 24.9 cm MV Area PHT 7.3 cm??? Mitral E Point Velocity 56.3 cm/s Mitral A Point Velocity 78.4 cm/s Mitral E to A Ratio 0.7 MV Deceleration Time 103.3 ms FINDINGS Left Ventricle Left ventricular ejection fraction is estimated at 50-55 %. Left ventricular cavity size normal by visual. Right Ventricle Right ventricle not well visualized. Right Atrium Right atrium not well visualized. Left Atrium Normal left atrial size by visual. Mitral Valve Structurally normal mitral valve. Aortic Valve Aortic valve not well visualized. Tricuspid Valve Tricuspid valve not well visualized. Pulmonic Valve Pulmonic valve not well visualized. Pericardium No pericardial effusion. Aorta Aortic root and proximal ascending aorta not well visualized. CONCLUSIONS Technically difficult study for interpretation and Definity was used Normal LV systolic function We visualized intracardiac valves Previewed by: Dr. Contreras Cohen MD (Electronically Signed) Final Date: 07 February 2024 17:52
--- NOTE | 2024-02-08 08:23 | P.DS ---
Providers Date of admission: 02/05/24 11:23 Expected date of discharge: 02/07/24 Attending physician: Liam Sadler MD Consults: 02/05/24 11:44 Consult Physician Urgent Consulting Provider: Ward Yu Consult Reason/Comments: Chest pain Do you want consulting provider notified?: Yes Primary care physician: Liam Sadler MD Hospital Course: Final Diagnoses: Acute on chronic CHF, systolic dysfunction Dilated cardiomyopathy Acute hypoxic respiratory failure secondary to the above, resolved COPD Chest pain, left chest wall Diabetes mellitus PAD Nicotine dependence, recently quit a couple months ago Hyperlipidemia Hospital course:This is a 73-year-old female with past medical history significant for COPD, morbid obesity, systolic CHF, hypertension, hyperlipidemia , diabetes mellitus, gastroesophageal reflux disease, laparoscopic gastric banding, chronic back pain,PAD,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 While at cardiology appointment patient complained of left lateral chest pain ,worsening shortness of breath, bilateral lower extremity edema, accompanied by weight gain and decreased energy over the last 2-3 weeks. Echo at PCPs office reported dilated left ventricle, diffuse global hypokinesis, moderate to severe LV dysfunction, EF 35%. Lasix had recently been increased by PCP but patient states did not notice any difference. Compliant with her medications including Entresto. denies additional salt intake. Positive orthopnea, normally sleeps in a chair, able to lie flat. Denies syncope. Denies lightheadedness, dizziness or focal deficits. Denies nausea vomiting or diarrhea. Denies abdominal pain. EKG sinus rhythm. Chest x-ray reported low lung volumes with generalized hazy appearance which could represent atelectasis versus pulmonary edema. Troponins negative x 3, proBNP 67, triglycerides 317, cholesterol 266, LDL 156, HDL 46, bicarb 34, BUN 20, creatinine decreasing to 1.08 from 1.15. Hematology and coagulation panel unremarkable. Blood sugars better controlled, elevated on admission. Venous Doppler of left lower extremity reported no evidence for DVT, moderate subcutaneous edema at the calf level. EKG recently repeated, results pending. Diuresing well on Lasix IV push, with 24-hour LAUREN reflecting a negative fluid balance. Maintaining O2 sats in the high 90s on 2 L nasal cannula. Diuretics as per cardiology. Cardiology discussing cardiac catheterization once her pulmonary status improves and able to lie flat. Close monitoring of renal function with repeat labs ordered for a.m. Tight blood sugar control.Procalcitonin ordered, ruling out bacterial infection of left lower extremity. 02/07/2024 Procalcitonin normal. Diuresed well on Lasix IV push, 24-hour I&O reflecting a weight decrease of 3 kg. Transitioned to oral Lasix. Electrolytes within normal limits. Bicarb 31, BUN 25, creatinine 1.1. Completed cardiac catheterization reporting normal coronary arteries. Repeat echocardiogram pending. Denies chest pain, palpitations or shortness of breath,maintaining O2 sats of 92% on room air. O2 sat on room air after ambulation pending. Patient will be discharged home today in a stable condition with guarded prognosis pending final DC recommendations and clearance per cardiology. The impression and plan of care has been dictated as directed. : I performed a history and examination of this patient, discussed the same with the dictator. I agree with the dictator's note ,documented as a scribe. Any additional findings or plans will be noted. Patient Condition at Discharge: Stable Plan - Discharge Summary Discharge Rx Participant: No New Discharge Prescriptions: New Ipratropium-Albuterol Nebulize [Duoneb 0.5 mg-3 mg/3 ml Soln] 3 ml INHALATION RT-QID PRN each PRN Reason: Shortness Of Breath Or Wheezing Dapagliflozin Propanediol [Farxiga] 10 mg PO DAILY #30 tab Metoprolol Succinate (ER) [Toprol XL] 25 mg PO DAILY #30 tab Furosemide [Lasix] 40 mg PO BID@0900,1600 #60 tab Continue Clopidogrel [Plavix] 75 mg PO DAILY rOPINIRole HCL [Requip] 2 mg PO TID HYDROcodone/APAP 10-325MG [[place] 10-325] 1 tab PO Q6HR Loratadine [Claritin] 10 mg PO BID Montelukast [Singulair] 10 mg PO HS Potassium Chloride [K-Tab ER] 10 meq PO DAILY Pantoprazole Sodium [Protonix] 40 mg PO BID #60 tablet. Fluticasone Nasal [place] [Flonase Nasal [place]] 2 spray EA NOSTRIL HS Empagliflozin [Jardiance] 25 mg PO DAILY Celecoxib [CeleBREX] 200 mg PO DAILY Mirabegron [Myrbetriq] 50 mg PO DAILY Tamsulosin [Flomax] 0.4 mg PO DAILY Ammonium Lactate Lotion [Lac-Hydrin 12% Lotion] 1 applic TOPICAL BID PRN PRN Reason: Dry Skin Insulin Glargine,Hum.rec.anlog [Lantus Solostar Pen] 46 units SQ HS tiZANidine [Zanaflex] 4 mg PO BID Sacubitril/Valsartan [Entresto 24 mg-26 mg Tablet] 1 tab PO BID Rosuvastatin [Crestor] 20 mg PO DIRECTED Nitroglycerin Sl Tabs [Nitrostat] 0.4 mg SUBLINGUAL Q5M PRN PRN Reason: Chest Pain busPIRone HCl [Buspar] 10 mg PO BID PRN PRN Reason: Anxiety EPINEPHrine (Auto Inject) [Epipen] 0.3 mg IM ONCE PRN PRN Reason: Anaphylaxis Albuterol Inhaler [Ventolin Hfa Inhaler] 1 - 2 puff INHALATION RT-Q6H PRN PRN Reason: Shortness Of Breath ARIPiprazole [Abilify] 5 mg PO DAILY Pregabalin [Lyrica] 150 mg PO TID Fluticasone/Umeclidin/Vilanter [Trelegy Ellipta 200-62.5-25] 1 puff INHALATION RT-DAILY Multivit-Min/Iron/Folic/Lutein [Centrum Silver Women Tablet] 1 tab PO DAILY Ergocalciferol (Vitamin D2) [Drisdol (50,000 Iu)] 1,250 mcg PO DIRECTED Discontinued Furosemide [Lasix] 40 mg PO DAILY Sulfamethox-Tmp 400-80Mg [Bactrim SS 400-80 mg] 1 tab PO NESS No Action diphenhydrAMINE [Benadryl] 50 mg PO HS Cinnamon Bark [Cinnamon] 2,000 mg PO DAILY Sacubitril/Valsartan [Entresto 49 mg-51 mg Tablet] 1 tab PO DIRECTED Melatonin 10 mg PO HS Discharge Medication List Clopidogrel [Plavix] 75 mg PO DAILY 06/17/14 [History] HYDROcodone/APAP 10-325MG [[place] 10-325] 1 tab PO Q6HR 06/17/14 [History] rOPINIRole HCL [Requip] 2 mg PO TID 06/17/14 [History] Loratadine [Claritin] 10 mg PO BID 06/17/18 [History] Montelukast [Singulair] 10 mg PO HS 06/17/18 [History] Potassium Chloride [K-Tab ER] 10 meq PO DAILY 02/05/19 [History] Pantoprazole Sodium [Protonix] 40 mg PO BID #60 tablet. 02/08/19 [Rx] ARIPiprazole [Abilify] 5 mg PO DAILY 02/05/24 [History] Albuterol Inhaler [Ventolin Hfa Inhaler] 1 - 2 puff INHALATION RT-Q6H PRN 02/05/24 [History] Ammonium Lactate Lotion [Lac-Hydrin 12% Lotion] 1 applic TOPICAL BID PRN 02/05/24 [History] Celecoxib [CeleBREX] 200 mg PO DAILY 02/05/24 [History] Cinnamon Bark [Cinnamon] 2,000 mg PO DAILY 02/05/24 [History] EPINEPHrine (Auto Inject) [Epipen] 0.3 mg IM ONCE PRN 02/05/24 [History] Empagliflozin [Jardiance] 25 mg PO DAILY 02/05/24 [History] Ergocalciferol (Vitamin D2) [Drisdol (50,000 Iu)] 1,250 mcg PO DIRECTED 02/05/24 [History] Fluticasone Nasal [place] [Flonase Nasal [place]] 2 spray EA NOSTRIL HS 02/05/24 [History] Fluticasone/Umeclidin/Vilanter [Trelegy Ellipta 200-62.5-25] 1 puff INHALATION RT-DAILY 02/05/24 [History] Insulin Glargine,Hum.rec.anlog [Lantus Solostar Pen] 46 units SQ HS 02/05/24 [History] Melatonin 10 mg PO HS 02/05/24 [History] Mirabegron [Myrbetriq] 50 mg PO DAILY 02/05/24 [History] Multivit-Min/Iron/Folic/Lutein [Centrum Silver Women Tablet] 1 tab PO DAILY 02/05/24 [History] Nitroglycerin Sl Tabs [Nitrostat] 0.4 mg SUBLINGUAL Q5M PRN 02/05/24 [History] Pregabalin [Lyrica] 150 mg PO TID 02/05/24 [History] Rosuvastatin [Crestor] 20 mg PO DIRECTED 02/05/24 [History] Sacubitril/Valsartan [Entresto 24 mg-26 mg Tablet] 1 tab PO BID 02/05/24 [History] Sacubitril/Valsartan [Entresto 49 mg-51 mg Tablet] 1 tab PO DIRECTED 02/05/24 [History] Tamsulosin [Flomax] 0.4 mg PO DAILY 02/05/24 [History] busPIRone HCl [Buspar] 10 mg PO BID PRN 02/05/24 [History] diphenhydrAMINE [Benadryl] 50 mg PO HS 02/05/24 [History] tiZANidine [Zanaflex] 4 mg PO BID 02/05/24 [History] Dapagliflozin Propanediol [Farxiga] 10 mg PO DAILY #30 tab 02/07/24 [Rx] Furosemide [Lasix] 40 mg PO BID@0900,1600 #60 tab 02/07/24 [Rx] Ipratropium-Albuterol Nebulize [Duoneb 0.5 mg-3 mg/3 ml Soln] 3 ml INHALATION RT-QID PRN each 02/07/24 [Rx] Metoprolol Succinate (ER) [Toprol XL] 25 mg PO DAILY #30 tab 02/07/24 [Rx] Follow up Appointment(s)/Referral(s): Liam Sadler MD [Primary Care Provider] - 3 Days Ward Yu MD [STAFF PHYSICIAN] - 1 Week Ambulatory/Diagnostic Orders: Complete Blood Count w/diff [LAB.AMB] Time Frame: 3 Days, Location: None Selected Patient Instructions/Handouts: After Radial Heart Catheterization (GEN) Discharge Disposition: HOME WITH HOME HEALTH SERVICES
== END 2024-02-07 16:20 | disposition home health service (06) ==
LOC: EC 09:44 → 3SCARD 11:22 → INTOOBSV 11:23 → OBSVTOIN 11:23 → 3SCARD 17:46 → UNDODISIN 02-07 16:20
PROVIDERS: ADMIT Family Medicine; ATTEND Family Medicine
DX: I11.0 Hypertensive heart disease with heart failure (principal); I50.23 Acute on chronic systolic (congestive) heart failure; J96.01 Acute respiratory failure with hypoxia; I42.0 Dilated cardiomyopathy; I25.110 Atherosclerotic heart disease of native coronary artery with unstable angina pectoris; E11.51 Type 2 diabetes mellitus with diabetic peripheral angiopathy without gangrene; E78.5 Hyperlipidemia, unspecified; J44.9 Chronic obstructive pulmonary disease, unspecified; I45.10 Unspecified right bundle-branch block; F32.A Depression, unspecified; K21.9 Gastro-esophageal reflux disease without esophagitis; E66.01 Morbid (severe) obesity due to excess calories; Z68.38 Body mass index [BMI] 38.0-38.9, adult; G89.29 Other chronic pain; M54.9 Dorsalgia, unspecified; Z79.51 Long term (current) use of inhaled steroids; Z79.1 Long term (current) use of non-steroidal anti-inflammatories (NSAID); Z79.02 Long term (current) use of antithrombotics/antiplatelets; Z79.84 Long term (current) use of oral hypoglycemic drugs; Z79.4 Long term (current) use of insulin; Z79.899 Other long term (current) drug therapy; Z88.0 Allergy status to penicillin; Z88.5 Allergy status to narcotic agent; Z91.041 Radiographic dye allergy status; Z91.040 Latex allergy status; Z88.8 Allergy status to other drugs, medicaments and biological substances; Z91.048 Other nonmedicinal substance allergy status; Z89.422 Acquired absence of other left toe(s); Z87.891 Personal history of nicotine dependence; Z98.84 Bariatric surgery status; Z90.710 Acquired absence of both cervix and uterus; Z87.19 Personal history of other diseases of the digestive system; Z89.411 Acquired absence of right great toe
CPT/HCPCS: 96376 ×2; 96374; 99291; 36415; 94760; 93005; 93308 ×2; 93458; 83880; 80061; 80053; 80048 ×2; 83735; 84484; 85025; 85610; 85730; 84145; 71046; 93971; G0378 ×3; C1769; C1894; J2250; J1200; J1940 ×3; J2930; Q9957 ×2; J1644; Q9967; J2001

== ENCOUNTER 2024-03-31 14:51 | Emergency (ER) | payer MEDICARE, OTHER ==
[2024-03-31 16:29] LABS: Basophils % (A) 0 %; Eosinophils # (A) 0.1 k/uL (0-0.7); Eosinophils % (A) 1 %; HCT 45.6 % (34.0-46.0); Hypochromasia Slight; Lymphocytes # (A) 0.8 k/uL (1.0-4.8); Lymphocytes % (A) 14 %; MCH 28.5 pg (25.0-35.0); MCHC 30.7 g/dL (31.0-37.0); MCV 92.9 fL (80.0-100.0); Mean Platelet Volume 9.3; Monocytes # (A) 0.1 k/uL (0-1.0); Monocytes % (A) 1 %; Neutrophils # (A) 4.4 k/uL (1.3-7.7); Neutrophils % (A) 83 %; Platelet Count 199 k/uL (150-450); RBC 4.91 m/uL (3.80-5.40); RDW 14.8 % (11.5-15.5); WBC 5.3 k/uL (3.8-10.6)
[2024-03-31 16:35] LABS: ALT 15 U/L (4-34); African American GFR (CKD) 33 (>60 ml/min/1.73 sqM); Anion Gap 6 mmol/L; Blood Urea Nitrogen 31 mg/dL (7-17); Calcium 8.7 mg/dL (8.4-10.2); Carbon Dioxide 30 mmol/L (22-30); Chloride 102 mmol/L (98-107); Glucose 300 mg/dL (74-99); Non-African American GFR(CKD) 28 (>60 ml/min/1.73 sqM); Sodium 138 mmol/L (137-145)
[2024-03-31 16:38] LABS: AST 33 U/L (14-36); Albumin 4.2 g/dL (3.5-5.0); Alkaline Phosphatase 72 U/L (38-126); Potassium 5.7 mmol/L (3.5-5.1); Total Bilirubin 0.8 mg/dL (0.2-1.3); Total Protein 7.8 g/dL (6.3-8.2)
[2024-03-31 16:44] LABS: NT-Pro-B-Type Natriuretic Pept 392 pg/mL
[2024-03-31] MEDS: HYDROcodone/APAP 10-325MG 1 EACH TAB PO ONE (16:58)
--- NOTE | 2024-03-31 17:01 | ED ---
General Adult HPI - General Chief complaint: Extremity Problem,Nontraumatic Stated complaint: Kristine leg swelling Time Seen by Provider: 03/31/24 15:38 Source: patient, RN notes reviewed, old records reviewed Mode of arrival: wheelchair Limitations: no limitations - History of Present Illness Initial comments: 74-year-old female with chronic bilateral lower extremity edema and erythema. Patient has CT angiography of the lower extremities ordered by her primary care for this chronic symptom. She is scheduled to see vascular surgery in 1 week. Patient has chronic renal disease and BUN/creatinine were elevated. Patient was sent to the emergency department for evaluation. - Related Data Home Medications Medication Instructions Recorded Confirmed Clopidogrel [Plavix] 75 mg PO DAILY 06/17/14 02/05/24 HYDROcodone/APAP 10-325MG [[place] 1 tab PO Q6HR 06/17/14 02/05/24 10-325] rOPINIRole HCL [Requip] 2 mg PO TID 06/17/14 02/05/24 Loratadine [Claritin] 10 mg PO BID 06/17/18 02/05/24 Montelukast [Singulair] 10 mg PO HS 06/17/18 02/05/24 Potassium Chloride [K-Tab ER] 10 meq PO DAILY 02/05/19 02/05/24 ARIPiprazole [Abilify] 5 mg PO DAILY 02/05/24 02/05/24 Albuterol Inhaler [Ventolin Hfa 1 - 2 puff INHALATION RT-Q6H PRN 02/05/24 02/05/24 Inhaler] Ammonium Lactate Lotion 1 applic TOPICAL BID PRN 02/05/24 02/05/24 [Lac-Hydrin 12% Lotion] Celecoxib [CeleBREX] 200 mg PO DAILY 02/05/24 02/05/24 Cinnamon Bark [Cinnamon] 2,000 mg PO DAILY 02/05/24 02/05/24 EPINEPHrine (Auto Inject) [Epipen] 0.3 mg IM ONCE PRN 02/05/24 02/05/24 Empagliflozin [Jardiance] 25 mg PO DAILY 02/05/24 02/05/24 Ergocalciferol (Vitamin D2) 1,250 mcg PO DIRECTED 02/05/24 02/05/24 [Drisdol (50,000 Iu)] Fluticasone Nasal [place] [Flonase 2 spray EA NOSTRIL HS 02/05/24 02/05/24 Nasal [place]] Fluticasone/Umeclidin/Vilanter 1 puff INHALATION RT-DAILY 02/05/24 02/05/24 [Trelegy Ellipta 200-62.5-25] Insulin Glargine,Hum.rec.anlog 46 units SQ HS 02/05/24 02/05/24 [Lantus Solostar Pen] Melatonin 10 mg PO HS 02/05/24 02/05/24 Mirabegron [Myrbetriq] 50 mg PO DAILY 02/05/24 02/05/24 Multivit-Min/Iron/Folic/Lutein 1 tab PO DAILY 02/05/24 02/05/24 [Centrum Silver Women Tablet] Nitroglycerin Sl Tabs [Nitrostat] 0.4 mg SUBLINGUAL Q5M PRN 02/05/24 02/05/24 Pregabalin [Lyrica] 150 mg PO TID 02/05/24 02/05/24 Rosuvastatin [Crestor] 20 mg PO DIRECTED 02/05/24 02/05/24 Sacubitril/Valsartan [Entresto 24 1 tab PO BID 02/05/24 02/05/24 mg-26 mg Tablet] Sacubitril/Valsartan [Entresto 49 1 tab PO DIRECTED 02/05/24 02/05/24 mg-51 mg Tablet] Tamsulosin [Flomax] 0.4 mg PO DAILY 02/05/24 02/05/24 busPIRone HCl [Buspar] 10 mg PO BID PRN 02/05/24 02/05/24 diphenhydrAMINE [Benadryl] 50 mg PO HS 02/05/24 02/05/24 tiZANidine [Zanaflex] 4 mg PO BID 02/05/24 02/05/24 Previous Rx's Medication Instructions Recorded Pantoprazole Sodium [Protonix] 40 mg PO BID #60 tablet. 02/08/19 Dapagliflozin Propanediol [Farxiga] 10 mg PO DAILY #30 tab 02/07/24 Furosemide [Lasix] 40 mg PO BID@0900,1600 #60 tab 02/07/24 Ipratropium-Albuterol Nebulize 3 ml INHALATION RT-QID PRN each 02/07/24 [Duoneb 0.5 mg-3 mg/3 ml Soln] Metoprolol Succinate (ER) [Toprol 25 mg PO DAILY #30 tab 02/07/24 XL] Allergies Allergy/AdvReac Type Severity Reaction Status Date / Time buprenorphine HCl Allergy Rash/Hives Verified 03/31/24 14:55 [From Buprenex] Iodinated Contrast Media Allergy Rash/Hives Verified 03/31/24 14:55 [Iodinated Contrast- Oral and IV Dye] latex Allergy skin Verified 03/31/24 14:55 cracks and bleeds Penicillins Allergy Anaphylaxis Verified 03/31/24 14:55 prochlorperazine maleate Allergy Anaphylaxis Verified 03/31/24 14:55 [From Compazine] codeine AdvReac Nausea & Verified 03/31/24 14:55 Vomiting morphine AdvReac Abdominal Verified 03/31/24 14:55 Pain prochlorperazine edisylate AdvReac Anaphylaxis Verified 03/31/24 14:55 [From Compazine] ivp dye Allergy Rash/Hives Uncoded 02/05/24 13:24 Review of Systems ROS Statement: Those systems with pertinent positive or pertinent negative responses have been documented in the HPI. ROS Other: All systems not noted in ROS Statement are negative. Past Medical History Past Medical History: Heart Failure, COPD, Diabetes Mellitus, GERD/Reflux, Hypertension, Sleep Apnea/CPAP/BIPAP Additional Past Medical History / Comment(s): CHRONIC BACK PAIN, DDD, Peripheral vascular disease History of Any Multi-Drug Resistant Organisms: None Reported Past Surgical History: Appendectomy, Back Surgery, Bowel Resection, Cholecystectomy, Hysterectomy, Joint Replacement, Orthopedic Surgery Additional Past Surgical History / Comment(s): 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, 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, HAS METAL IN BACK, KRISTINE CATARACTS, RKISTINE HIP REPLACEMENTS, KRISTINE HANDS TRIGGER FINGER SX'S; Shoulder Arthroscopy; has Fx R upper arm, lap band Past Anesthesia/Blood Transfusion Reactions: No Reported Reaction, Previous Problems w/ Anesthesia Additional Past Anesthesia/Blood Transfusion Reaction / Comment(s): trouble waking up from anesthesia Past Psychological History: Depression Smoking Status: Former smoker Past Alcohol Use History: Occasional Past Drug Use History: None Reported - Past Family History Mother Family Medical History: Cancer, Coronary Artery Disease (CAD) Additional Family Medical History / Comment(s): MOTHER HAD STOMACH CANCER Father Family Medical History: Coronary Artery Disease (CAD), Diabetes Mellitus Brother(s) Family Medical History: Cancer Additional Family Medical History / Comment(s): BROTHER HAD PROSTATE CANCER General Exam Limitations: no limitations General appearance: alert, in no apparent distress Head exam: Present: atraumatic, normocephalic Eye exam: Present: normal appearance, PERRL ENT exam: Present: normal exam Neck exam: Present: normal inspection. Absent: tenderness, meningismus Respiratory exam: Present: normal lung sounds bilaterally. Absent: respiratory distress, wheezes Cardiovascular Exam: Present: regular rate, normal rhythm GI/Abdominal exam: Present: soft. Absent: distended Extremities exam: Present: pedal edema, other (Bilateral erythema) Neurological exam: Present: alert, oriented X3 Psychiatric exam: Present: normal affect, normal mood Skin exam: Present: warm, dry Course Vital Signs 03/31/24 03/31/24 14:52 16:34 Temperature 97.5 F L Pulse Rate 93 76 Respiratory 16 19 Rate Blood Pressure 116/76 137/70 O2 Sat by Pulse 97 96 Oximetry - Reevaluation(s) Reevaluation #1: 03/31/24 17:01 Patient requesting discharge, does not want any further testing or evaluation. Medical Decision Making - Medical Decision Making Was pt. sent in by a medical professional or institution (KEITH Cardenas, PIERCING MILL OPERATOR, urgent care, hospital, or senior living...) When possible be specific @ -No Did you speak to anyone other than the patient for history (EMS, parent, family, police, friend...)? What history was obtained from this source @ -No Did you review nursing and triage notes (agree or disagree)? Why? @ -I reviewed and agree with nursing and triage notes Were old charts reviewed (outside hosp., previous admission, EMS record, old EKG, old radiological studies, urgent care reports/EKG's, senior living records)? Report findings @ -No old charts were reviewed Differential diagnosis: Peripheral vascular disease, chronic venous stasis, congestive heart failure, cellulitis EKG interpreted by me (3pts min.). @ -As above X-rays interpreted by me (1pt min.). @ -None done CT interpreted by me (1pt min.). @ -None done U/S interpreted by me (1pt. min.). @ -None done What testing was considered but not performed or refused? (CT, X-rays, U/S, labs)? Why? @ -None What meds were considered but not given or refused? Why? @ -None Did you discuss the management of the patient with other professionals (professionals i.e. , PA, PIERCING MILL OPERATOR, lab, RT, psych nurse, social sciences chair, electronic wirer, teacher, network security officer, gearcase assembler)? Give summary @ -I discussed case with Dr. Sadler and we both agree that the patient should not received CT angiography today but she will await her vascular consultation in 1 week. Was smoking cessation discussed for >3mins.? @ -No Was critical care preformed (if so, how long)? @ -No Were there social determinants of health that impacted care today? How? (Homelessness, low income, unemployed, alcoholism, drug addiction, transportation, low edu. Level, literacy, decrease access to med. care, shelter, rehab)? @ -No Was there de-escalation of care discussed even if they declined (Discuss DNR or withdrawal of care, Hospice)? DNR status @ -No What co-morbidities impacted this encounter? (DM, HTN, Smoking, COPD, CAD, Cancer, CVA, ARF, Chemo, Hep., AIDS, mental health diagnosis, sleep apnea, morbid obesity)? @Multiple comorbidities including congestive heart failure and peripheral vascular disease. Was patient admitted / discharged? Hospital course, mention meds given and route, prescriptions, significant lab abnormalities, going to OR and other pertinent info. @Patient laboratories repeated, stable chronic kidney disease, normal white blo od cell count, patient will continue her outpatient workup of bilateral lower extremity pain follow-up with your primary care and with vascular surgery in 1 week. Undiagnosed new problem with uncertain prognosis? @ -No Drug Therapy requiring intensive monitoring for toxicity (Heparin, Nitro, Insuli n, Cardizem)? @ -No Were any procedures done? @ -No Diagnosis/symptom? @ -Bilateral lower extremity edema Acute, or Chronic, or Acute on Chronic? @ -Chronic Uncomplicated (without systemic symptoms) or Complicated (systemic symptoms)? @ -Default Side effects of treatment? @ -No Exacerbation, Progression, or Severe Exacerbation? @ -No Poses a threat to life or bodily function? How? (Chest pain, [place], [place], pneumonia, PE, COPD, DKA, ARF, appy, cholecystitis, CVA, Diverticulitis, Homicidal, Ellie cidal, threat to staff... and all critical care pts) @ -Low risk at this time - Lab Data Result diagrams: 03/31/24 16:18 03/31/24 16:18 Lab Results 03/31/24 03/31/24 Range/Units 16:18 16:18 WBC 5.3 (3.8-10.6) k/uL RBC 4.91 (3.80-5.40) m/uL Hgb 14.0 (11.4-16.0) gm/dL Hct 45.6 (34.0-46.0) % MCV 92.9 (80.0-100.0) fL MCH 28.5 (25.0-35.0) pg MCHC 30.7 L (31.0-37.0) g/dL RDW 14.8 (11.5-15.5) % Plt Count 199 (150-450) k/uL MPV 9.3 Neutrophils % 83 % Lymphocytes % 14 % Monocytes % 1 % Eosinophils % 1 % Basophils % 0 % Neutrophils # 4.4 (1.3-7.7) k/uL Lymphocytes # 0.8 L (1.0-4.8) k/uL Monocytes # 0.1 (0-1.0) k/uL Eosinophils # 0.1 (0-0.7) k/uL Basophils # 0.0 (0-0.2) k/uL Hypochromasia Slight Sodium 138 (137-145) mmol/L Potassium 5.7 H (3.5-5.1) mmol/L Chloride 102 (98-107) mmol/L Carbon Dioxide 30 (22-30) mmol/L Anion Gap 6 mmol/L BUN 31 H (7-17) mg/dL Creatinine 1.73 H (0.52-1.04) mg/dL Est GFR (CKD-EPI)AfAm 33 (>60 ml/min/1.73 sqM) Est GFR (CKD-EPI)NonAf 28 (>60 ml/min/1.73 sqM) Glucose 300 H (74-99) mg/dL Calcium 8.7 (8.4-10.2) mg/dL Total Bilirubin 0.8 (0.2-1.3) mg/dL AST 33 (14-36) U/L ALT 15 (4-34) U/L Alkaline Phosphatase 72 (38-126) U/L NT-Pro-B Natriuret Pep 392 pg/mL Total Protein 7.8 (6.3-8.2) g/dL Albumin 4.2 (3.5-5.0) g/dL Disposition Clinical Impression: CKD (chronic kidney disease), Lower extremity edema Disposition: HOME SELF-CARE Condition: Fair Instructions (If sedation given, give patient instructions): Chronic Kidney Disease (ED), Leg Edema (ED) Is patient prescribed a controlled substance at d/c from ED?: No Referrals: Liam Sadler MD [Primary Care Provider] - 1-2 days Eugenio Chavez DO [STAFF PHYSICIAN] - 1-2 days Time of Disposition: 17:01
[2024-03-31 17:10] LABS: INR 0.9 (<1.2); Partial Thromboplastin Time 20.1 sec (22.0-30.0)
[2024-03-31 17:26] VITALS: BP 134/76; PULSE 78; RESP 18; TEMP 97.9
== END 2024-03-31 17:20 | disposition home or self-care (01) ==
LOC: EC 14:51
DX: R60.9 Edema, unspecified (principal); E11.22 Type 2 diabetes mellitus with diabetic chronic kidney disease; N18.9 Chronic kidney disease, unspecified; I13.0 Hypertensive heart and chronic kidney disease with heart failure and stage 1 through stage 4 chronic kidney disease, or unspecified chronic kidney disease; I50.9 Heart failure, unspecified; Z88.5 Allergy status to narcotic agent; Z91.040 Latex allergy status; Z91.041 Radiographic dye allergy status; Z88.0 Allergy status to penicillin; Z88.8 Allergy status to other drugs, medicaments and biological substances; Z87.891 Personal history of nicotine dependence
CPT/HCPCS: 36415; 80053; 83880; 85025; 85610; 85730; 99283

== ENCOUNTER → 2024-03-31 | Outpatient (CLI) | payer MEDICARE, OTHER ==
[2024-03-31 14:33] LABS: African American GFR (CKD) 30 (>60 ml/min/1.73 sqM); Blood Urea Nitrogen 30 mg/dL (7-17); Non-African American GFR(CKD) 26 (>60 ml/min/1.73 sqM)
== END | disposition home or self-care (01) ==
LOC: RADCTMAIN 13:38
PROVIDERS: ATTEND Family Medicine
DX: Z53.9 Procedure and treatment not carried out, unspecified reason (principal)
CPT/HCPCS: 82565; 84520

== ENCOUNTER → 2024-04-28 | Outpatient (CLI) | payer MEDICARE, OTHER ==
[2024-04-28 10:25] LABS: African American GFR (CKD) 34 (>60 ml/min/1.73 sqM); Blood Urea Nitrogen 19 mg/dL (7-17); Non-African American GFR(CKD) 29 (>60 ml/min/1.73 sqM)
== END | disposition home or self-care (01) ==
LOC: RADCTMAIN 09:44
PROVIDERS: ATTEND Family Medicine
DX: I87.2 Venous insufficiency (chronic) (peripheral) (principal); H10.9 Unspecified conjunctivitis; I73.9 Peripheral vascular disease, unspecified
CPT/HCPCS: 82565; 84520

== ENCOUNTER → 2024-05-21 | Outpatient (CLI) | payer MEDICARE, OTHER ==
[2024-05-21 07:41] VITALS: BP 146/84; PULSE 78; RESP 16; TEMP 97.6
[2024-05-21] MEDS: SODIUM CHLORIDE 0.9% 500 ML 500 ML in EMPTY BAG 1 BAG IV PRN (08:05)
[2024-05-21 09:42] LABS: African American GFR (CKD) 35 (>60 ml/min/1.73 sqM); Blood Urea Nitrogen 21 mg/dL (7-17); Non-African American GFR(CKD) 30 (>60 ml/min/1.73 sqM)
[2024-05-21] MEDS: SODIUM CHLORIDE 0.9% 500 ML 500 ML IV NR (10:51)
== END ==
LOC: PROCWHC3 07:09
PROVIDERS: ATTEND Family Medicine
DX: I12.9 Hypertensive chronic kidney disease with stage 1 through stage 4 chronic kidney disease, or unspecified chronic kidney disease (principal); N18.4 Chronic kidney disease, stage 4 (severe); D63.1 Anemia in chronic kidney disease; I87.2 Venous insufficiency (chronic) (peripheral); I73.9 Peripheral vascular disease, unspecified
CPT/HCPCS: 82565; 84520; 96360; 96361

== ENCOUNTER → 2024-05-21 | Outpatient (CLI) | payer MEDICARE, OTHER ==
--- NOTE | 2024-05-21 11:54 | CT ---
EXAMINATION TYPE: CT angio abd aorta w/Runoff, without and with contrast DATE OF EXAM: 05/21/2024 COMPARISON: CT abdomen pelvis 02/06/2019 HISTORY: 74-year-old female I72, H10.9 VENOUS INSUFFICIENCY. PAD. TECHNIQUE: Contiguous axial scanning of the abdomen and pelvis performed without and with IV Contrast , patient injected with 80ml mL of Isovue 370. Postcontrast scan performed with bilateral large to be runoff. Additional delayed skin through the legs. Coronal/sagittal reconstructions performed. 3-D re constructions generated on a dedicated independent workstation. CT DLP: 3550.70 mGycm Automated exposure control for dose reduction was used. FINDINGS: Abdomen pelvis: Heart upper limits of normal in size without pericardial effusion. Strandy scarring or atelectasis in the lower lungs without pleural effusion. Lap band device in place. Liver borderline enlarged at 17.9 cm. Gallbladder appears surgically absent. Noncontrast and arterial phase imaging of the adrenal glands, spleen, and pancreas show no gross abno rmality. Bilateral renal cortical cysts measuring up to 3.6 cm. No dilated small bowel, free fluid, or free ai r. No mesenteric or retroperitoneal lymphadenopathy. Generalized anasarca change. Mild overall stool burden. Sigmoid diverticulosis. No pericolonic inflammatory change. Bladder urine distended. Extensive artifact from the patient's bilateral total hip arthroplasties che its detailed assessment of the pelvis. Uterus appears surgically absent. Pelvic phleboliths. No pelvi c lymphadenopathy seen. Bones: Advanced spondylotic change throughout the visualized spine. Patient is status post L3-S1 post erior and interbody lumbar fusion with corresponding laminectomies. Fixed grade 2 anterolisthesis L5- S1. Spinal stimulator array along the lower thoracic spinal canal. Prominent anasarca change and soft tissue edema throughout the bilateral lower extremities. Vasculature: Mild atherosclerotic calcifications infrarenal abdominal aorta without aneurysm. There is separate origin from the aorta of the left gastric artery. This appears focally narrowed at its origin. Otherwise, SMA, MARCO, and cunha renal arteries appear patent. Right: The iliac arteries, ROLLOFF DRIVER, PFA, SFA, and popliteal artery are patent. The tibioperoneal trunk is patent but vessels become diminutive at the upper third leg level and are not clearly followed at the mid to distal third leg. Left: The iliac arteries, ROLLOFF DRIVER, PFA, SFA, and popliteal arteries are patent. The tibial peroneal trunk appears patent but the vessels become diminutive at the upper third leg lev el. Not clearly followed at the mid to distal third leg despite the delayed scan. IMPRESSION: ABDOMEN PELVIS: 1. GENERALIZED ANASARCA, BORDERLINE HEPATOMEGALY, BILATERAL RENAL CORTICAL CYSTS MEASURING UP TO 3.6 CM, SIGMOID DIVERTICULOSIS, AND LAP BAND DEVICE. VASCULATURE: 2. THE EXAM IS PERFORMED FOR ASSESSMENT OF THE ARTERIAL SYSTEM. WE NOTE A STENT WITHIN THE LEFT COMMO N ILIAC VEIN. 3. 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 THERE APPEAR S TO BE SOME FOCAL NARROWING AT THE VESSEL ORIGIN. 4. ONLY MILD SCATTERED ATHEROSCLEROTIC CHANGE IN THE INFRARENAL ABDOMINAL AORTA. 5. THE TIBIOPERONEAL TRUNKS ARE PATENT ON BOTH SIDES BUT THE TRIFURCATION VESSELS BECOMES DIMINUTIVE AT THE UPPER THIRD LEG LEVEL AND ARE NOT CLEARLY FOLLOWED AT THE MID TO DISTAL THIRD LEG DESPITE THE PRESENCE OF A DELAYED SCAN.
== END | disposition home or self-care (01) ==
LOC: RADCTMAIN 09:31
PROVIDERS: ATTEND Family Medicine
DX: I87.2 Venous insufficiency (chronic) (peripheral) (principal); H10.9 Unspecified conjunctivitis; I70.0 Atherosclerosis of aorta; K57.30 Diverticulosis of large intestine without perforation or abscess without bleeding; N28.1 Cyst of kidney, acquired; R16.0 Hepatomegaly, not elsewhere classified; R60.1 Generalized edema
CPT/HCPCS: 75635; Q9967

== ENCOUNTER 2025-06-18 13:46 | Inpatient (IN) | payer MEDICARE, OTHER ==
[2025-06-18] MEDS ORDERED: VANCOMYCIN IV PER PHARMACY 1 EACH MISC MISCELLANE PRN (14:09)
--- NOTE | 2025-06-18 14:13 | ED ---
General Adult HPI - General Chief complaint: Recheck/Abnormal Lab/Rx Stated complaint: Generalized pain Time Seen by Provider: 06/18/25 13:49 Source: patient, EMS Mode of arrival: EMS - History of Present Illness Initial comments: Patient is a 75-year-old female, past medical history COPD, diabetes, hypertension presenting today for malaise and pressure ulcer. Patient states mae s been dealing with a sacral ulcer for 1 month. She has a visiting nurse and wound nurse as well as the visiting doctor who cares for her regularly. She had bandages of her sacral ulcer changed today and she was told to come to the emergency department. Despite wound care her ulcer has gotten progressively worse. She denies fevers or chills, vomiting, chest pain, shortness of breath, abdominal pain or new lower extremity swelling. States she is not taking her home [place] tens with only intermittent relief of pain. Additionally endorses urinary urgency, Generalized weakness. Denies any focal numbness or weakness. - Related Data Home Medications Medication Instructions Recorded Confirmed HYDROcodone/APAP 10-325MG [[place] 1 tab PO Q6HR PRN 06/17/14 06/18/25 10-325] rOPINIRole HCL [Requip] 2 mg PO QID 06/17/14 06/18/25 Montelukast [Singulair] 10 mg PO HS 06/17/18 06/18/25 Cinnamon Bark [Cinnamon] 2,000 mg PO DAILY@1200 02/05/24 06/18/25 Insulin Glargine,Hum.rec.anlog 49 units SQ HS@199902/05/24 06/18/25 [Lantus Solostar Pen] Mirabegron [Myrbetriq] 50 mg PO DAILY 02/05/24 06/18/25 Sacubitril/Valsartan [Entresto 49 1 tab PO BID 02/05/24 06/18/25 mg-51 mg Tablet] Tamsulosin [Flomax] 0.4 mg PO DAILY 02/05/24 06/18/25 busPIRone HCl [Buspar] 10 mg PO BID PRN 02/05/24 06/18/25 tiZANidine [Zanaflex] 4 mg PO BID PRN 02/05/24 06/18/25 Aspirin EC [Ecotrin Low Dose] 81 mg PO DAILY 06/18/25 06/18/25 Atorvastatin [Lipitor] 40 mg PO HS 06/18/25 06/18/25 DULoxetine HCL [Cymbalta] 60 mg PO DAILY 06/18/25 06/18/25 Ferrous Sulfate [Feosol] 325 mg PO W/BRKFST 06/18/25 06/18/25 Isosorbide Mononitrate ER [Imdur] 30 mg PO DAILY 06/18/25 06/18/25 Miconazole 2% Powder 1 applic TOPICAL BID 06/18/25 06/18/25 Pregabalin [Lyrica] 200 mg PO BID 06/18/25 06/18/25 QUEtiapine [SEROquel] 100 mg PO HS 06/18/25 06/18/25 Spironolactone [Aldactone] 25 mg PO DAILY 06/18/25 06/18/25 Topiramate [Topamax] 50 mg PO HS 06/18/25 06/18/25 Previous Rx's Medication Instructions Recorded Pantoprazole Sodium [Protonix] 40 mg PO BID #60 tablet. 02/08/19 Dapagliflozin Propanediol [Farxiga] 10 mg PO DAILY #30 tab 02/07/24 Metoprolol Succinate (ER) [Toprol 25 mg PO DAILY #30 tab 02/07/24 XL] Allergies Allergy/AdvReac Type Severity Reaction Status Date / Time buprenorphine HCl Allergy Rash/Hives Verified 06/18/25 18:24 [From Buprenex] Iodinated Contrast Media Allergy Rash/Hives Verified 06/18/25 18:24 [Iodinated Contrast- Oral and IV Dye] latex Allergy skin Verified 06/18/25 18:24 cracks and bleeds Penicillins Allergy Anaphylaxis Verified 06/18/25 18:24 prochlorperazine maleate Allergy Anaphylaxis Verified 06/18/25 18:24 [From Compazine] codeine AdvReac Nausea & Verified 06/18/25 18:24 Vomiting morphine AdvReac Abdominal Verified 06/18/25 18:24 Pain prochlorperazine edisylate AdvReac Anaphylaxis Verified 06/18/25 18:24 [From Compazine] ivp dye Allergy Rash/Hives Uncoded 06/18/25 18:24 Review of Systems ROS Statement: Those systems with pertinent positive or pertinent negative responses have been documented in the HPI. ROS Other: All systems not noted in ROS Statement are negative. 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, HAS METAL IN BACK, KRISTINE CATARACTS, KRISTINE HIP REPLACEMENTS, KRISTINE HANDS TRIGGER FINGER SX'S; Shoulder Arthroscopy; has Fx R upper arm, lap band Past Anesthesia/Blood Transfusion Reactions: No Reported Reaction, Previous Problems w/ Anesthesia Additional Past Anesthesia/Blood Transfusion Reaction / Comment(s): trouble waking up from anesthesia Past Psychological History: Depression Smoking Status: Former smoker Past Alcohol Use History: None Reported Past Drug Use History: None Reported - Past Family History Mother Family Medical History: Cancer, Coronary Artery Disease (CAD) Additional Family Medical History / Comment(s): MOTHER HAD STOMACH CANCER Father Family Medical History: Coronary Artery Disease (CAD), Diabetes Mellitus Brother(s) Family Medical History: Cancer Additional Family Medical History / Comment(s): BROTHER HAD PROSTATE CANCER General Exam - General Exam Comments Initial Comments: PE: CONSTITUTIONAL: [no apparent distress, ill-appearing nontoxic] SKIN: [warm, dry, no jaundice, hives or petechiae bilateral circumferential erythema of the lower extremities, patient states is chronic, stage II-III sacral ulcer without fluctuance, buttocks was examined with Joslyn DELEON as skilled nursing facilities professional] EYES:[ pupils are equally round, extraocular movements intact without nystagmus, clear conjunctiva, non-icteric sclera] HENT: [normocephalic, atraumatic, moist mucus membranes, oropharynx clear without exudates] NECK: , [Full range of motion, normal appearance] PULMONARY: [Scant wheezes bilaterally without rhonchi or rales, normal excursion, no accessory muscle use and no stridor] CARDIOVASCULAR:[ regular rate, rhythm, normal S1 and S2. No appreciated murmurs, rubs or gallops. Strong radial pulses with intact distal perfusion. No lower extremity edema] GASTROINTESTINAL: [soft, active bowel sounds throughout, non-tender, non- distended, no palpable masses, no rebound or guarding. No hepatosplenomegaly] MUSCULOSKELETAL: [Extremities have no gross deformity, no edema No calf swel ling ] NEUROLOGIC: [_a/o x 3, GCS 15, normal mentation and speech. Moves all extremities x 4 without motor or sensory deficit] PSYCHIATRIC:[ _normal mood and affect, thought process is clear and linear] Course Vital Signs 06/18/25 06/18/25 06/18/25 13:52 17:32 17:47 Temperature 98.3 F Pulse Rate 80 84 82 Respiratory 20 Rate Blood Pressure 114/57 O2 Sat by Pulse 94 L Oximetry 06/18/25 06/18/25 06/18/25 18:53 21:38 23:41 Temperature Pulse Rate 80 92 98 Respiratory 20 20 17 Rate Blood Pressure 105/55 112/75 123/58 O2 Sat by Pulse 94 L 93 L 95 Oximetry 06/19/25 06/19/25 06/19/25 04:28 08:10 10:42 Temperature 97.8 F Pulse Rate 89 90 98 Respiratory 17 20 18 Rate Blood Pressure 105/49 159/73 128/78 O2 Sat by Pulse 97 100 88 L Oximetry 06/19/25 11:22 Temperature Pulse Rate Respiratory Rate Blood Pressure O2 Sat by Pulse 97 Oximetry EKG Findings - EKG Comments: EKG Findings:: Sinus rhythm, right bundle branch block, rate 76 bpm, intervals within acceptable limits, normal axis, new T wave inversions lead V2 through V4, no new significant ST elevations or depressions Medical Decision Making - Medical Decision Making Was pt. sent in by a medical professional or institution (, PA, [facility], urgent care, hospital, or [facility]...) When possible be specific @Patient states she was sent in by her visiting home wound nurse Did you speak to anyone other than the patient for history (EMS, parent, family, police, friend...)? What history was obtained from this source @ -[No] Did you review nursing and triage notes (agree or disagree)? Why? @ -[I reviewed nursing and triage notes]-of note patient denies shortness of breath myself, there is a stasis ulcer on the distal left lower extremity, patient states erythema is chronic Differential Diagnosis (chest pain, altered mental status, abdominal pain women, abdominal pain men, vaginal bleeding, weakness, fever, dyspnea, syncope, headache, dizziness, GI bleed, back pain, seizure, CVA, palpatations, mental health, musculoskeletal)? Differential Weakness: Hypoglycemia, shock, sepsis, hyponatremia, anemia, infection, DC, ETOH, adverse medicine reaction, overdose, stroke, this is not meant to be an all-inclusive list. EKG interpreted by me (3pts min.). @ -[As above] X-rays interpreted by me (1pt min.). @ reviewed CXR- significant for cardiomegaly, no consolidations CT interpreted by me (1pt min.). @ -[None done] U/S interpreted by me (1pt. min.). @ -[None done] What testing was considered but not performed or refused? (CT, X-rays, U/S, labs)? Why? @ -[None] What meds were considered but not given or refused? Why? @ -[None] Did you discuss the management of the patient with other professionals (professionals i.e. , PA, [facility], lab, RT, psych nurse, sexual assault social worker, compliance tester, teacher, conservation science officer, casework specialist)? Give summary @ -[No] Was smoking cessation discussed for >3mins.? @ -[No] Was critical care preformed (if so, how long)? @ yes 35 minutes Were there social determinants of health that impacted care today? How? (Homelessness, low income, unemployed, alcoholism, drug addiction, transportation, low edu. Level, literacy, decrease access to med. care, half-way, rehab)? @ -[No] Was there de-escalation of care discussed even if they declined (Discuss DNR or withdrawal of care, Hospice)? @ -[No] What co-morbidities impacted this encounter? (DM, HTN, Smoking, COPD, CAD, Cancer, CVA, ARF, Chemo, Hep., AIDS, mental health diagnosis, sleep apnea, morbid obesity)? Diabetes, CHF, COPD Was patient admitted / discharged? Hospital course, mention meds given and route, prescriptions, significant lab abnormalities, going to OR and other per tinent info. @ -Admission- Pt is a pleasant 75-year-old female presenting today for generalized weakness, and uncontrolled pain from chronic sacral ulcer. Vital signs are stable on arrival. On my assessment patient is uncomfortable appearing but nontoxic. Has a stage II to sacral ulcer as well as bilateral erythema of the lower extremities which patient states is chronic. Additional venous stasis ulcer to the lateral left lower extremity. Scant wheezes bilaterally. Will receive pain control, IV antibiotics and will obtain comprehensive labs. I anticipate admission due to generalized weakness, patient stating she lives alone and has difficulty caring for herself at this point due to pain. Ordered Levaquin and vancomycin. Patient noted to potassium 6.2, did not appear to be hemolyzed specimen. No peaked T waves on EKG. Kidney function is at baseline. Ordered high-dose albuterol, and dextrose calcium gluconate and Lasix.Urinalysis does show turbid urine, 4+ glucose, small blood, large leukocyte esterase negative nitrite. Patient is already received Levaquin. Case discussed with Dr. Rosa who kindly excepted patient for admission Undiagnosed new problem with uncertain prognosis? @ -[No] Drug Therapy requiring intensive monitoring for toxicity (Heparin, Nitro, Insulin, Cardizem)? @ -[No] Were any procedures done? @ -[No] Diagnosis/symptom? @ -Sacral ulcer, generalized weakness, hyperkalemia Acute, or Chronic, or Acute on Chronic? @Acute on chronic Uncomplicated (without systemic symptoms) or Complicated (systemic symptoms)? @Complicated Side effects of treatment? @ -[No] Exacerbation, Progression, or Severe Exacerbation? @ -[No] Poses a threat to life or bodily function? How? (Chest pain, [place], DC, pneumonia, PE, COPD, DKA, ARF, appy, cholecystitis, CVA, Diverticulitis, Homicidal, Suicidal, threat to staff... and all critical care pts) @ -Yes - Lab Data Result diagrams: 06/18/25 15:00 06/19/25 07:03 Lab Results 06/18/25 06/18/25 06/18/25 Range/Units 14:34 15:00 15:00 WBC 11.85 H (4.50-10.00) 10*3/uL RBC 4.88 (4.10-5.20) 10*6/uL Hgb 13.5 (12.0-15.0) g/dL Hct 43.3 (37.2-46.3) % MCV 88.7 (80.0-97.0) fL MCH 27.7 (27.0-32.0) pg MCHC 31.2 L (32.0-37.0) g/dL Plt Count 234 (140-440) 10*3/uL MPV 9.7 (9.5-12.2) fL Immature Gran % (Auto) 0.8 % Neutrophils % 76.1 % Lymphocytes % 17.4 % Monocytes % 4.5 % Eosinophils % 0.8 % Basophils % 0.4 % Immature Gran # 0.10 H (0.00-0.04) 10*3/uL Neutrophils # 9.02 H (1.80-7.70) 10*3/uL Lymphocytes # 2.06 (0.90-5.00) 10*3/uL Monocytes # 0.53 (0.20-1.00) 10*3/uL Eosinophils # 0.09 (0.04-0.35) 10*3/uL Basophils # 0.05 (0.00-0.10) 10*3/uL PT 10.5 (10.0-12.5) sec INR 0.9 (<1.2) APTT 24.1 (22.0-30.0) sec Sodium (137-145) mmol/L Potassium (3.5-5.1) mmol/L Chloride (98-107) mmol/L Carbon Dioxide (22-30) mmol/L Anion Gap mmol/L BUN (7-17) mg/dL Creatinine (0.52-1.04) mg/dL Est GFR (CKD-EPI)AfAm (>60 ml/min/1.73 sqM) Est GFR (CKD-EPI)NonAf (>60 ml/min/1.73 sqM) Glucose (74-99) mg/dL Plasma Lactic Acid Jaleel (0.7-2.0) mmol/L Calcium (8.4-10.2) mg/dL Magnesium (1.6-2.3) mg/dL Total Bilirubin (0.2-1.3) mg/dL AST (14-36) U/L ALT (4-34) U/L Alkaline Phosphatase (38-126) U/L Troponin I (0.000-0.034) ng/mL Total Protein (6.3-8.2) g/dL Albumin (3.5-5.0) g/dL Urine Color Light Yellow Urine Appearance Turbid H (Clear) Urine pH 5.5 (5.0-8.0) Ur Specific [place] 1.020 (1.001-1.035) Urine Protein Negative (Negative) Urine Glucose (UA) 4+ H (Negative) Urine Ketones Negative (Negative) Urine Blood Small H (Negative) Urine Nitrite Negative (Negative) Urine Bilirubin Negative (Negative) Urine Urobilinogen <2.0 (<2.0) mg/dL Ur Leukocyte Esterase Large H (Negative) Urine RBC 7 H (0-5) /hpf Urine WBC >182 H (0-5) /hpf Urine WBC Clumps Many H (None) /hpf Ur Squamous Epith Cells 2 (0-4) /hpf 06/18/25 06/18/25 06/18/25 Range/Units 15:00 15:00 15:00 WBC (4.50-10.00) 10*3/uL RBC (4.10-5.20) 10*6/uL Hgb (12.0-15.0) g/dL Hct (37.2-46.3) % MCV (80.0-97.0) fL MCH (27.0-32.0) pg MCHC (32.0-37.0) g/dL Plt Count (140-440) 10*3/uL MPV (9.5-12.2) fL Immature Gran % (Auto) % Neutrophils % % Lymphocytes % % Monocytes % % Eosinophils % % Basophils % % Immature Gran # (0.00-0.04) 10*3/uL Neutrophils # (1.80-7.70) 10*3/uL Lymphocytes # (0.90-5.00) 10*3/uL Monocytes # (0.20-1.00) 10*3/uL Eosinophils # (0.04-0.35) 10*3/uL Basophils # (0.00-0.10) 10*3/uL PT (10.0-12.5) sec INR (<1.2) APTT (22.0-30.0) sec Sodium 136 L (137-145) mmol/L Potassium 6.2 H* (3.5-5.1) mmol/L Chloride 104 (98-107) mmol/L Carbon Dioxide 26 (22-30) mmol/L Anion Gap 6 mmol/L BUN 29 H (7-17) mg/dL Creatinine 1.30 H (0.52-1.04) mg/dL Est GFR (CKD-EPI)AfAm 46 (>60 ml/min/1.73 sqM) Est GFR (CKD-EPI)NonAf 40 (>60 ml/min/1.73 sqM) Glucose 173 H (74-99) mg/dL Plasma Lactic Acid Jaleel 1.1 (0.7-2.0) mmol/L Calcium 8.5 (8.4-10.2) mg/dL Magnesium 1.8 (1.6-2.3) mg/dL Total Bilirubin 0.5 (0.2-1.3) mg/dL AST 16 (14-36) U/L ALT 7 (4-34) U/L Alkaline Phosphatase 68 (38-126) U/L Troponin I <0.012 (0.000-0.034) ng/mL Total Protein 6.6 (6.3-8.2) g/dL Albumin 3.5 (3.5-5.0) g/dL Urine Color Urine Appearance (Clear) Urine pH (5.0-8.0) Ur Specific [place] (1.001-1.035) Urine Protein (Negative) Urine Glucose (UA) (Negative) Urine Ketones (Negative) Urine Blood (Negative) Urine Nitrite (Negative) Urine Bilirubin (Negative) Urine Urobilinogen (<2.0) mg/dL Ur Leukocyte Esterase (Negative) Urine RBC (0-5) /hpf Urine WBC (0-5) /hpf Urine WBC Clumps (None) /hpf Ur Squamous Epith Cells (0-4) /hpf Disposition Clinical Impression: Hyperkalemia, Generalized muscle weakness, Sacral ulcer Disposition: ADMITTED IP TO THIS [facility] Condition: Stable
[2025-06-18] MEDS: ONDANSETRON 4 MG/2 ML VIAL IVP STA (14:48)
[2025-06-18] MEDS: MORPHINE SULFATE 4 MG/ML SYRINGE IV STA (14:49)
[2025-06-18] MEDS: LEVOFLOXACIN 750MG-D5W PMX 750 MG in DEXTROSE/WATER 1 150ML.BAG IVPB STA (14:56)
[2025-06-18 15:06] LABS: Basophils # (A) 0.05 10*3/uL (0.00-0.10); Basophils % (A) 0.4 %; Eosinophils # (A) 0.09 10*3/uL (0.04-0.35); Eosinophils % (A) 0.8 %; HCT 43.3 % (37.2-46.3); HGB 13.5 g/dL (12.0-15.0); Lymphocytes # (A) 2.06 10*3/uL (0.90-5.00); Lymphocytes % (A) 17.4 %; MCH 27.7 pg (27.0-32.0); MCHC 31.2 g/dL (32.0-37.0); MCV 88.7 fL (80.0-97.0); Monocytes # (A) 0.53 10*3/uL (0.20-1.00); Monocytes % (A) 4.5 %; Neutrophils # (A) 9.02 10*3/uL (1.80-7.70); Neutrophils % (A) 76.1 %; Platelet Count 234 10*3/uL (140-440); RBC 4.88 10*6/uL (4.10-5.20); RDW 15.9 % (11.5-14.5); WBC 11.85 10*3/uL (4.50-10.00)
[2025-06-18 15:16] LABS: ALT 7 U/L (4-34); AST 16 U/L (14-36); African American GFR (CKD) 46 (>60 ml/min/1.73 sqM); Albumin 3.5 g/dL (3.5-5.0); Alkaline Phosphatase 68 U/L (38-126); Anion Gap 6 mmol/L; Blood Urea Nitrogen 29 mg/dL (7-17); Calcium 8.5 mg/dL (8.4-10.2); Carbon Dioxide 26 mmol/L (22-30); Chloride 104 mmol/L (98-107); Glucose 173 mg/dL (74-99); Magnesium 1.8 mg/dL (1.6-2.3); Non-African American GFR(CKD) 40 (>60 ml/min/1.73 sqM); Sodium 136 mmol/L (137-145); Total Protein 6.6 g/dL (6.3-8.2)
[2025-06-18 15:17] LABS: INR 0.9 (<1.2); Partial Thromboplastin Time 24.1 sec (22.0-30.0); Prothrombin Time 10.5 sec (10.0-12.5)
[2025-06-18 15:27] LABS: Bilirubin,Urine Negative (Negative); Blood,Urine Small (Negative); Color,Urine Light Yellow; Glucose,Urine (UA) 4+ (Negative); Ketones,Urine Negative (Negative); Leukocyte Esterase,Urine Large (Negative); Nitrite,Urine Negative (Negative); PH, Urine 5.5 (5.0-8.0); Protein,Urine Negative (Negative); RBC,Urine 7 /hpf (0-5); Specific Gravity,Urine 1.020 (1.001-1.035); Squamous Epithelial Cell,Urine 2 /hpf (0-4); Urobilinogen,Urine <2.0 mg/dL (<2.0); WBC,Urine >182 /hpf (0-5)
[2025-06-18 15:33] LABS: Potassium 6.2 mmol/L (3.5-5.1)
--- NOTE | 2025-06-18 15:51 | XR ---
EXAMINATION TYPE: XR chest 2V DATE OF EXAM: 06/18/2025 3:42 PM COMPARISON: 02/05/2024 CLINICAL INDICATION: Female, 75 years old with history of Weakness, TECHNIQUE: XR chest 2V view(s) obtained. FINDINGS: The heart size is enlarged. Stable from comparison The pulmonary vasculature is normal. The lungs are clear. IMPRESSION: 1. [facility], , 06/18/2025 3:49 PM
[2025-06-18] MEDS ORDERED: CALCIUM CARBONATE 500 MG CHEWABLE PO PRN (16:05)
[2025-06-18] MEDS ORDERED: ACETAMINOPHEN TAB 325 MG TAB PO PRN (16:05)
[2025-06-18] MEDS ORDERED: NALOXONE 0.4 MG/ML 1 ML VIAL IV PRN (16:05)
[2025-06-18] MEDS: FUROSEMIDE 10 MG/ML 4 ML VIAL IV STA (16:22)
[2025-06-18] MEDS: DEXTROSE 50% SYRINGE 50 ML IVP ONE (16:23)
[2025-06-18] MEDS: CALCIUM GLUCONATE IN NACL 1 GM in SALINE 1 100ML.BAG IVPB ONE (16:24)
[2025-06-18] MEDS: SODIUM ZIRCONIUM CYCLOSILICATE 10 GM PACKET PO ONE (16:25)
[2025-06-18] MEDS: VANCOMYCIN 2,000 MG in SODIUM CHLORIDE 0.9% 500 ML 500 ML IVPB ONE (16:25)
[2025-06-18] MEDS: INSULIN REGULAR 100 UNIT/ML VIAL (IV) IV ONE (16:25)
[2025-06-18] MEDS: NICOTINE 21MG/24HR PATCH TRANSDERM SCH (17:27)
[2025-06-18] MEDS: ALBUTEROL NEB (CONC) 2.5 MG/0.5 ML INHALATION ONE (17:31)
[2025-06-18] MEDS: MORPHINE SULFATE 4 MG/ML SYRINGE IV PRN (17:50)
[2025-06-18 20:41] LABS: ALT 20 U/L (4-34); AST 56 U/L (14-36); African American GFR (CKD) 44 (>60 ml/min/1.73 sqM); Albumin 3.5 g/dL (3.5-5.0); Alkaline Phosphatase 99 U/L (38-126); Anion Gap 7 mmol/L; Blood Urea Nitrogen 25 mg/dL (7-17); Calcium 8.9 mg/dL (8.4-10.2); Carbon Dioxide 31 mmol/L (22-30); Chloride 101 mmol/L (98-107); Glucose 112 mg/dL (74-99); Non-African American GFR(CKD) 38 (>60 ml/min/1.73 sqM); Potassium 5.0 mmol/L (3.5-5.1); Sodium 139 mmol/L (137-145); Total Protein 6.8 g/dL (6.3-8.2)
[2025-06-18] MEDS: FAMOTIDINE 20 MG TAB PO SCH (21:44)
[2025-06-18] MEDS: MORPHINE SULFATE 2 MG/ML SYRINGE IVP PRN (23:30)
[2025-06-19 07:00] LABS: Glucose,Whole Blood 122 mg/dL (70-110)
[2025-06-19 07:41] LABS: African American GFR (CKD) 51 (>60 ml/min/1.73 sqM); Non-African American GFR(CKD) 44 (>60 ml/min/1.73 sqM)
[2025-06-19] MEDS: ENOXAPARIN 40 MG/0.4 ML SYRINGE SQ SCH (09:37)
[2025-06-19] MEDS: ALPRAZolam 0.25 MG TAB PO PRN (10:21)
[2025-06-19] MEDS ORDERED: DEXTROSE 50% SYRINGE 50 ML IVP PRN ×2 (14:05)
[2025-06-19 14:37] LABS: Basophils # (A) 0.05 10*3/uL (0.00-0.10); Basophils % (A) 0.7 %; Eosinophils # (A) 0.15 10*3/uL (0.04-0.35); Eosinophils % (A) 2.0 %; HCT 46.9 % (37.2-46.3); HGB 14.3 g/dL (12.0-15.0); Lymphocytes # (A) 1.36 10*3/uL (0.90-5.00); Lymphocytes % (A) 18.3 %; MCH 27.6 pg (27.0-32.0); MCHC 30.5 g/dL (32.0-37.0); MCV 90.5 fL (80.0-97.0); Monocytes # (A) 0.56 10*3/uL (0.20-1.00); Monocytes % (A) 7.5 %; Neutrophils # (A) 5.20 10*3/uL (1.80-7.70); Neutrophils % (A) 69.8 %; Platelet Count 234 10*3/uL (140-440); RBC 5.18 10*6/uL (4.10-5.20); RDW 15.9 % (11.5-14.5); WBC 7.45 10*3/uL (4.50-10.00)
[2025-06-19 15:14] LABS: African American GFR (CKD) 55 (>60 ml/min/1.73 sqM); Anion Gap 7 mmol/L; Blood Urea Nitrogen 20 mg/dL (7-17); Calcium 8.6 mg/dL (8.4-10.2); Carbon Dioxide 29 mmol/L (22-30); Chloride 102 mmol/L (98-107); Glucose 158 mg/dL (74-99); Magnesium 1.7 mg/dL (1.6-2.3); Non-African American GFR(CKD) 48 (>60 ml/min/1.73 sqM); Potassium 5.8 mmol/L (3.5-5.1); Sodium 138 mmol/L (137-145)
[2025-06-19] MEDS: HEPARIN SODIUM,PORCINE 5,000 UNIT/ML 1 ML VIAL SQ SCH (16:55)
[2025-06-19] MEDS: CEFEPIME 2 GM in SODIUM CHLORIDE 0.9% 100 ML IVPB SCH (16:55)
[2025-06-19 17:04] LABS: Glucose,Whole Blood 121 mg/dL (70-110)
[2025-06-19] MEDS: INSULIN LISPRO (HumaLOG) 100 UNIT/ML 10 mL VL SQ SCH (17:04)
--- NOTE | 2025-06-19 17:47 | P.HPIM ---
History of Present Illness H&P Date: 06/19/25 Patient is a 75-year-old female with with heart failure, COPD on 3 L home oxygen at night, [id number] diabetes mellitus, hypertension, PAD presenting with malaise and sacral ulcer. She states she has had ulcer for months previously being hospitalized. Patient was in acute distress when seen. She states she is in a lot of pain and it has gotten progressively worse. She takes [place] 10 at home but states that it has not been helping with the pain anymore. She also endorses left leg wound that developed a week ago. She regularly follows up with wound care but ulcers have been getting worse. Patient states she is unable to wipe after having a bowel movement. She denies any exposure to stool on her wound prior to being changed by wound care. Denies any fevers chills nausea vomiting chest pain shortness of breath no abdominal pain. Endorses urinary frequency/urgency and dysuria. States that she fell 2 weeks ago while walking to the bathroom at night after slipping on a rug. States she had hit her head. Denies any loss of consciousness. Patient not on any blood thinners. Denies any focal neurodeficits. EKG independently interpreted displaying sinus rhythm, RBBB, rate 78 bpm, QTc 401 ms, MD interval 163 ms CXR independently interpreted displaying cardiomegaly, no acute cardiopulmonary process WBC 11.85, Na 136, K 6.2, BUN 29, creatinine 1.30, glucose 173, troponin < 0.012 UA displaying large leukocyte esterase, urine WBC >182, small urine blood, glucose 4+ T 98.3 F, MD 80, RR 20, BP 114/57, O2 sat 94% on room air ED documentation reviewed and case discussed with ED provider. Patient mated to internal medicine service for further workup on hyperkalemia and sacral ulcer. Review of systems: Pertinent positives and negatives as discussed in HPI, a complete review of systems was performed and all other systems are negative. Physical examination: Vital signs reviewed General: non toxic, moderate distress, appears at stated age Derm: superficial sacral wound grade 2 with purulent drainage with surrounding erythema and warmth Head: atraumatic, normocephalic, symmetric ENT: Nose and ears atraumatic Neck: No cervical lymphadenopathy, trachea midline, supple Mouth: no lip lesion, mucus membranes moist Cardiovascular: S1S2 reg, no murmur, positive dorsalis pedis pulse bilateral, no edema Lungs: CTA bilateral, no rhonchi, no rales, no accessory muscle use Abdominal: soft, non-tender to palpation, no guarding Ext: right big toe amputation, left foot amputation, left lower extremity venous stasis ulcer around that redness and warmth Neuro: CN II-XI grossly intact, no gross focal neuro deficits Psych: Alert, oriented to person, place, and time Assessment/Plan: Patient is a 75-year-old female with with heart failure, COPD, mlt-hzssdiz-knbgeswuj diabetes mellitus, hypertension, PAD presenting with superficial sacral ulcer. #. Infected Superficial sacral ulcer, grade 3 #. Left lower extremitiy venous ulcer IV vancomycin, monitor renal function Wound care consult Discussed with ID, placed on cefepime 2 g, IVPB every 8 hours Will need to discuss rehab options with patient daily Resume home [place] [id number], continue morphine 24 mg IV every 4 hours as needed - frequent turns - Not interested in Rehab will be difficult to heal as she is unable to clean herself. #. Urinary tract infection Patient endorses urinary frequency, dysuria, history of ESBL UA displaying large leukocyte esterase, urine WBC >182, small urine blood, glucose 4+ Urine culture pending On IV vancomycin and cefepime ID consulted #. Hyperkalemia Potassium today 5.8 Lokelma 10 mg Aldactone and Entresto on hold, may consider sending patient home with Lokelma Repeat potassium at midnight, repeat BMP in a.m. Nephrology consulted by ED #. Generalized weakness PT/OT consulted #. Insulin-dependent diabetes mellitus Humalog insulin SQ sliding scale Lantus 49 units SQ at bedtime Accu-Cheks ACHS, hypoglycemic precautions A1c ordered Chronic: CKD stage III: Baseline creatinine 1.12 HFrEF, not in exacerbation: Continue GDMT of Entresto 49-51 mg QD (held due to hyperkalemia), Toprol-XL 25 mg QD Aldactone 25 mg daily(held due to hyperkalemia), Farxiga COPD, not in exacerbation: Singulair 10 mg p.o. at bedtime, LEONCIO: Ferrous sulfate 325 mg p.o. daily with 500 mg vitamin C Depression/anxiety: Cymbalta 60 mg daily, buspirone 10 mg p.o. twice daily as needed Hyperlipidemia: Atorvastatin 40 mg at bedtime PAD: Aspirin 81 mg daily Urinary incontinence: Flomax 0.4 mg daily, Topamax 50 mg p.o. at bedtime Neuropathy: Continue Lyrica F: N/A E: Replete electrolytes as needed N: Renal diet A: PT/OT consulted DVT prophylaxis: Heparin 5000 unit SQ q 8 hours The patient is admitted with an anticipated less than 2 midnight stay for evaluation of infected sacral ulcer wound. CODE STATUS:: Full code Discussed with: Patient and verbalizes understanding with plan Anticipated discharge place: Pending clinical course Brien Sevilla MD PGY-2 IM Dictation was produced using [employer] dictation software. please excuse any grammatical, word or spelling errors. I saw and evaluated the patient during the smith and critical portions of this encounter, and discussed the case in detail with the resident author of this note, I agree with the Assessment and Plan, and my changes, if any, are highlighted in blue. 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, HAS METAL IN BACK, KRISTINE CATARACTS, KRISTINE HIP REPLACEMENTS, KRISTINE HANDS TRIGGER FINGER SX'S; Shoulder Arthroscopy; has Fx R upper arm, lap band Past Anesthesia/Blood Transfusion Reactions: No Reported Reaction, Previous Problems w/ Anesthesia Additional Past Anesthesia/Blood Transfusion Reaction / Comment(s): trouble waking up from anesthesia Past Psychological History: Depression Smoking Status: Former smoker Past Alcohol Use History: None Reported Past Drug Use History: None Reported - Past Family History Mother Family Medical History: Cancer, Coronary Artery Disease (CAD) Additional Family Medical History / Comment(s): MOTHER HAD STOMACH CANCER Father Family Medical History: Coronary Artery Disease (CAD), Diabetes Mellitus Brother(s) Family Medical History: Cancer Additional Family Medical History / Comment(s): BROTHER HAD PROSTATE CANCER Medications and Allergies Home Medications Medication Instructions Recorded Confirmed Type HYDROcodone/APAP 10-325MG [[place] 1 tab PO Q6HR PRN 06/17/14 06/18/25 History 10-325] rOPINIRole HCL [Requip] 2 mg PO QID 06/17/14 06/18/25 History Montelukast [Singulair] 10 mg PO HS 06/17/18 06/18/25 History Pantoprazole Sodium [Protonix] 40 mg PO BID #60 tablet.dr 02/08/19 06/18/25 Rx Cinnamon Bark [Cinnamon] 2,000 mg PO DAILY@1200 02/05/24 06/18/25 History Insulin Glargine,Hum.rec.anlog 49 units SQ HS@199902/05/24 06/18/25 History [Lantus Solostar Pen] Mirabegron [Myrbetriq] 50 mg PO DAILY 02/05/24 06/18/25 History Sacubitril/Valsartan [Entresto 49 1 tab PO BID 02/05/24 06/18/25 History mg-51 mg Tablet] Tamsulosin [Flomax] 0.4 mg PO DAILY 02/05/24 06/18/25 History busPIRone HCl [Buspar] 10 mg PO BID PRN 02/05/24 06/18/25 History tiZANidine [Zanaflex] 4 mg PO BID PRN 02/05/24 06/18/25 History Dapagliflozin Propanediol [Farxiga] 10 mg PO DAILY #30 tab 02/07/24 06/18/25 Rx Metoprolol Succinate (ER) [Toprol 25 mg PO DAILY #30 tab 02/07/24 06/18/25 Rx XL] Aspirin EC [Ecotrin Low Dose] 81 mg PO DAILY 06/18/25 06/18/25 History Atorvastatin [Lipitor] 40 mg PO HS 06/18/25 06/18/25 History DULoxetine HCL [Cymbalta] 60 mg PO DAILY 06/18/25 06/18/25 History Ferrous Sulfate [Feosol] 325 mg PO W/BRKFST 06/18/25 06/18/25 History Isosorbide Mononitrate ER [Imdur] 30 mg PO DAILY 06/18/25 06/18/25 History Miconazole 2% Powder 1 applic TOPICAL BID 06/18/25 06/18/25 History Pregabalin [Lyrica] 200 mg PO BID 06/18/25 06/18/25 History QUEtiapine [SEROquel] 100 mg PO HS 06/18/25 06/18/25 History Spironolactone [Aldactone] 25 mg PO DAILY 06/18/25 06/18/25 History Topiramate [Topamax] 50 mg PO HS 06/18/25 06/18/25 History Allergies Allergy/AdvReac Type Severity Reaction Status Date / Time buprenorphine HCl Allergy Rash/Hives Verified 06/18/25 18:24 [From Buprenex] Iodinated Contrast Media Allergy Rash/Hives Verified 06/18/25 18:24 [Iodinated Contrast- Oral and IV Dye] latex Allergy skin Verified 06/18/25 18:24 cracks and bleeds Penicillins Allergy Anaphylaxis Verified 06/18/25 18:24 prochlorperazine maleate Allergy Anaphylaxis Verified 06/18/25 18:24 [From Compazine] codeine AdvReac Nausea & Verified 06/18/25 18:24 Vomiting morphine AdvReac Abdominal Verified 06/18/25 18:24 Pain prochlorperazine edisylate AdvReac Anaphylaxis Verified 06/18/25 18:24 [From Compazine] ivp dye Allergy Rash/Hives Uncoded 06/18/25 18:24 Physical Exam Osteopathic Statement: *. No significant issues noted on an osteopathic structural exam other than those noted in the History and Physical/Consult. Vitals: Vital Signs Temp Pulse Resp BP Pulse Ox 06/19/25 11:22 97 06/19/25 10:42 98 18 128/78 88 L 06/19/25 08:10 90 20 159/73 100 06/19/25 04:28 97.8 F 89 17 105/49 97 06/18/25 23:41 98 17 123/58 95 06/18/25 21:38 92 20 112/75 93 L 06/18/25 18:53 80 20 105/55 94 L 06/18/25 17:47 82 06/18/25 17:32 84 06/18/25 13:52 98.3 F 80 20 114/57 94 L Intake and Output 07/25/25 07/26/25 07/26/25 22:59 06:59 14:59 Output Total 1100 1200 Balance -1100 -1200 Output: Urine 1100 1200 Results CBC & Chem 7: 06/19/25 14:30 06/19/25 14:30 Labs: Abnormal Lab Results - Last 24 Hours (Table) 06/18/25 06/18/25 06/18/25 Range/Units 14:34 15:00 15:00 WBC 11.85 H (4.50-10.00) 10*3/uL MCHC 31.2 L (32.0-37.0) g/dL Immature Gran # 0.10 H (0.00-0.04) 10*3/uL Neutrophils # 9.02 H (1.80-7.70) 10*3/uL Sodium 136 L (137-145) mmol/L Potassium 6.2 H* (3.5-5.1) mmol/L Carbon Dioxide (22-30) mmol/L BUN 29 H (7-17) mg/dL Creatinine 1.30 H (0.52-1.04) mg/dL Glucose 173 H (74-99) mg/dL POC Glucose (mg/dL) (70-110) mg/dL AST (14-36) U/L Urine Appearance Turbid H (Clear) Urine Glucose (UA) 4+ H (Negative) Urine Blood Small H (Negative) Ur Leukocyte Esterase Large H (Negative) Urine RBC 7 H (0-5) /hpf Urine WBC >182 H (0-5) /hpf Urine WBC Clumps Many H (None) /hpf 06/18/25 06/18/25 06/19/25 Range/Units 19:59 19:59 06:59 WBC (4.50-10.00) 10*3/uL MCHC (32.0-37.0) g/dL Immature Gran # (0.00-0.04) 10*3/uL Neutrophils # (1.80-7.70) 10*3/uL Sodium (137-145) mmol/L Potassium 5.2 H (3.5-5.1) mmol/L Carbon Dioxide 31 H (22-30) mmol/L BUN 25 H (7-17) mg/dL Creatinine 1.36 H (0.52-1.04) mg/dL Glucose 112 H (74-99) mg/dL POC Glucose (mg/dL) 122 H (70-110) mg/dL AST 56 H (14-36) U/L Urine Appearance (Clear) Urine Glucose (UA) (Negative) Urine Blood (Negative) Ur Leukocyte Esterase (Negative) Urine RBC (0-5) /hpf Urine WBC (0-5) /hpf Urine WBC Clumps (None) /hpf 06/19/25 Range/Units 07:03 WBC (4.50-10.00) 10*3/uL MCHC (32.0-37.0) g/dL Immature Gran # (0.00-0.04) 10*3/uL Neutrophils # (1.80-7.70) 10*3/uL Sodium (137-145) mmol/L Potassium (3.5-5.1) mmol/L Carbon Dioxide (22-30) mmol/L BUN (7-17) mg/dL Creatinine 1.21 H (0.52-1.04) mg/dL Glucose (74-99) mg/dL POC Glucose (mg/dL) (70-110) mg/dL AST (14-36) U/L Urine Appearance (Clear) Urine Glucose (UA) (Negative) Urine Blood (Negative) Ur Leukocyte Esterase (Negative) Urine RBC (0-5) /hpf Urine WBC (0-5) /hpf Urine WBC Clumps (None) /hpf
[2025-06-19] MEDS: SODIUM ZIRCONIUM CYCLOSILICATE 10 GM PACKET PO ONE (18:27)
[2025-06-19] MEDS: ONDANSETRON 4 MG/2 ML VIAL IVP PRN (18:32)
[2025-06-19 20:20] LABS: Glucose,Whole Blood 117 mg/dL (70-110)
[2025-06-19] MEDS: VANCOMYCIN 1,750 MG in SODIUM CHLORIDE 0.9% 500 ML 500 ML IVPB SCH (20:48)
[2025-06-19] MEDS: INSULIN GLARGINE (LANTUS) 100 UNIT/ML SYR SQ SCH (20:55)
[2025-06-19] MEDS: HYDROcodone/APAP 10-325MG 1 EACH TAB PO PRN (20:56)
[2025-06-19] MEDS: ATORVASTATIN 40 MG TAB PO SCH (20:57)
[2025-06-19] MEDS: PREGABALIN 100 MG CAP PO SCH (20:57)
[2025-06-19] MEDS: PANTOPRAZOLE 40 MG TABLET PO SCH (20:57)
[2025-06-19] MEDS: MONTELUKAST 10 MG TAB PO SCH (20:57)
[2025-06-19] MEDS ORDERED: SACUBITRIL/VALSARTAN 49 MG-51 MG TABLET PO SCH (21:00)
[2025-06-19] MEDS: NYSTATIN 100,000 UNIT/GM POWD 15 GM TOPICAL SCH (21:25)
[2025-06-19] MEDS: QUEtiapine 100 MG TAB PO SCH (21:25)
[2025-06-19] MEDS: TOPIRAMATE 25 MG TAB PO SCH (21:28)
--- NOTE | 2025-06-19 21:32 | P.NPCON ---
History of Present Illness - Reason for Consult Consult date: 06/19/25 acute renal failure - History of Present Illness 75-year-old female with with heart failure, COPD on 3 L home oxygen at night, viw-govwutj-eweufvles diabetes mellitus, hypertension, PAD presenting to ED c/o weakness, left leg pain and sacral ulcer/ pain, nephrology is consulted for CHILANGO/ CKD and hyperkalemia. the patient seen today, she is c/o left leg pain started few days ago and generalized body aches. also c/o nausea, difficulty urinating, labs showed cr. 1.3-> 1.2, potassium level 6.2, improved to 5.0 , she is on Entresto and Aldactone at home. she was treated with Lokelma and D50%. Review of Systems as above 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, HAS METAL IN BACK, KRISTINE CATARACTS, KRISTINE HIP REPLACEMENTS, KRISTINE HANDS TRIGGER FINGER SX'S; Shoulder Arthroscopy; has Fx R upper arm, lap band Past Anesthesia/Blood Transfusion Reactions: No Reported Reaction, Previous Problems w/ Anesthesia Additional Past Anesthesia/Blood Transfusion Reaction / Comment(s): trouble waking up from anesthesia Past Psychological History: Depression Smoking Status: Former smoker Past Alcohol Use History: None Reported Past Drug Use History: None Reported - Past Family History Mother Family Medical History: Cancer, Coronary Artery Disease (CAD) Additional Family Medical History / Comment(s): MOTHER HAD STOMACH CANCER Father Family Medical History: Coronary Artery Disease (CAD), Diabetes Mellitus Brother(s) Family Medical History: Cancer Additional Family Medical History / Comment(s): BROTHER HAD PROSTATE CANCER Medications and Allergies Home Medications Medication Instructions Recorded Confirmed Type HYDROcodone/APAP 10-325MG [Frannie 1 tab PO Q6HR PRN 06/17/14 06/18/25 History 10-325] rOPINIRole HCL [Requip] 2 mg PO QID 06/17/14 06/18/25 History Montelukast [Singulair] 10 mg PO HS 06/17/18 06/18/25 History Pantoprazole Sodium [Protonix] 40 mg PO BID #60 tablet. 02/08/19 06/18/25 Rx Cinnamon Bark [Cinnamon] 2,000 mg PO DAILY@1200 02/05/24 06/18/25 History Insulin Glargine,Hum.rec.anlog 49 units SQ HS@199902/05/24 06/18/25 History [Lantus Solostar Pen] Mirabegron [Myrbetriq] 50 mg PO DAILY 02/05/24 06/18/25 History Sacubitril/Valsartan [Entresto 49 1 tab PO BID 02/05/24 06/18/25 History mg-51 mg Tablet] Tamsulosin [Flomax] 0.4 mg PO DAILY 02/05/24 06/18/25 History busPIRone HCl [Buspar] 10 mg PO BID PRN 02/05/24 06/18/25 History tiZANidine [Zanaflex] 4 mg PO BID PRN 02/05/24 06/18/25 History Dapagliflozin Propanediol [Farxiga] 10 mg PO DAILY #30 tab 02/07/24 06/18/25 Rx Metoprolol Succinate (ER) [Toprol 25 mg PO DAILY #30 tab 02/07/24 06/18/25 Rx XL] Aspirin EC [Ecotrin Low Dose] 81 mg PO DAILY 06/18/25 06/18/25 History Atorvastatin [Lipitor] 40 mg PO HS 06/18/25 06/18/25 History DULoxetine HCL [Cymbalta] 60 mg PO DAILY 06/18/25 06/18/25 History Ferrous Sulfate [Feosol] 325 mg PO W/BRKFST 06/18/25 06/18/25 History Isosorbide Mononitrate ER [Imdur] 30 mg PO DAILY 06/18/25 06/18/25 History Miconazole 2% Powder 1 applic TOPICAL BID 06/18/25 06/18/25 History Pregabalin [Lyrica] 200 mg PO BID 06/18/25 06/18/25 History QUEtiapine [SEROquel] 100 mg PO HS 06/18/25 06/18/25 History Spironolactone [Aldactone] 25 mg PO DAILY 06/18/25 06/18/25 History Topiramate [Topamax] 50 mg PO HS 06/18/25 06/18/25 History Allergies Allergy/AdvReac Type Severity Reaction Status Date / Time buprenorphine HCl Allergy Rash/Hives Verified 06/18/25 18:24 [From Buprenex] Iodinated Contrast Media Allergy Rash/Hives Verified 06/18/25 18:24 [Iodinated Contrast- Oral and IV Dye] latex Allergy skin Verified 06/18/25 18:24 cracks and bleeds Penicillins Allergy Anaphylaxis Verified 06/18/25 18:24 prochlorperazine maleate Allergy Anaphylaxis Verified 06/18/25 18:24 [From Compazine] codeine AdvReac Nausea & Verified 06/18/25 18:24 Vomiting morphine AdvReac Abdominal Verified 06/18/25 18:24 Pain prochlorperazine edisylate AdvReac Anaphylaxis Verified 06/18/25 18:24 [From Compazine] ivp dye Allergy Rash/Hives Uncoded 06/18/25 18:24 Physical Exam Vitals: Vital Signs Temp Pulse Resp BP Pulse Ox 06/19/25 08:10 90 20 159/73 100 06/19/25 04:28 97.8 F 89 17 105/49 97 06/18/25 23:41 98 17 123/58 95 06/18/25 21:38 92 20 112/75 93 L 06/18/25 18:53 80 20 105/55 94 L 06/18/25 17:47 82 06/18/25 17:32 84 06/18/25 13:52 98.3 F 80 20 114/57 94 L Intake and Output 06/18/25 06/19/25 06/19/25 22:59 06:59 14:59 Output Total 1100 1200 Balance -1100 -1200 Output: Urine 1100 1200 General: non toxic, moderate distress due to pain Head: atraumatic, normocephalic, symmetric ENT: Nose and ears atraumatic Neck: No cervical lymphadenopathy, trachea midline, supple Mouth: no lip lesion, mucus membranes moist Cardiovascular: S1S2 reg, no murmur, positive dorsalis pedis pulse bilateral, no edema Lungs: CTA bilateral, no rhonchi, no rales, no accessory muscle use Abdominal: soft, non-tender to palpation, no guarding Ext: right big toe amputation, left foot amputation, left lower extremity ulcer surrounded by redness and warmth Neuro: CN II-XI grossly intact, no gross focal neuro deficits Psych: Alert, oriented x3 Results - Lab Results Most recent lab results Calcium 8.9 mg/dL (8.4-10.2) 06/18/25 19:59 Magnesium 1.8 mg/dL (1.6-2.3) 06/18/25 15:00 06/19/25 14:30 06/19/25 14:30 Assessment and Plan Assessment: 1. Chronic Kidney Disease stage 3, cr. 1.3 mg/dl on admission, seems to be around baseline, cr. in 2023 fluctuates 1.0-1.8. , UA + WBC/ RBC, WBC clumps , no imaging 2. Hyperkalemia, on Entresto and Aldactone , improved post medical management 3. sacral ulcer/ left LE ulcer, started on broad spectrum antibiotics 4. UTI , on antibiotics , urine cx no growth after 18 hours Plan: supportive care continue medical management of hyperkalemia as needed continue to hold Entresto and Aldactone continue IV antibiotics monitor renal panel daily monitor UO, check bladder scan if urine retention is suspected Thank you for consulting Nephrology service, will continue to follow up.
[2025-06-20 00:30] LABS: Basophils # (A) 0.04 10*3/uL (0.00-0.10); Basophils % (A) 0.4 %; Eosinophils # (A) 0.12 10*3/uL (0.04-0.35); Eosinophils % (A) 1.3 %; HCT 46.5 % (37.2-46.3); HGB 14.1 g/dL (12.0-15.0); Lymphocytes # (A) 1.42 10*3/uL (0.90-5.00); Lymphocytes % (A) 15.1 %; MCH 27.1 pg (27.0-32.0); MCHC 30.3 g/dL (32.0-37.0); MCV 89.4 fL (80.0-97.0); Monocytes # (A) 0.57 10*3/uL (0.20-1.00); Monocytes % (A) 6.1 %; Neutrophils # (A) 7.11 10*3/uL (1.80-7.70); Neutrophils % (A) 75.5 %; Platelet Count 236 10*3/uL (140-440); RBC 5.20 10*6/uL (4.10-5.20); RDW 16.0 % (11.5-14.5); WBC 9.41 10*3/uL (4.50-10.00)
[2025-06-20 00:48] LABS: ALT 35 U/L (4-34); AST 40 U/L (14-36); African American GFR (CKD) 59 (>60 ml/min/1.73 sqM); Albumin 3.2 g/dL (3.5-5.0); Albumin/Globulin Ratio 1.0; Alkaline Phosphatase 143 U/L (38-126); Anion Gap 8 mmol/L; Blood Urea Nitrogen 18 mg/dL (7-17); Calcium 8.9 mg/dL (8.4-10.2); Carbon Dioxide 26 mmol/L (22-30); Chloride 103 mmol/L (98-107); Globulin 3.1 g/dL; Glucose 156 mg/dL (74-99); Non-African American GFR(CKD) 51 (>60 ml/min/1.73 sqM); Potassium 5.5 mmol/L (3.5-5.1); Sodium 137 mmol/L (137-145); Total Protein 6.3 g/dL (6.3-8.2)
[2025-06-20 06:24] LABS: Glucose,Whole Blood 122 mg/dL (70-110)
[2025-06-20] MEDS: FERROUS SULFATE 325 MG TAB PO SCH (06:54)
[2025-06-20] MEDS: ISOSORBIDE MONONITRATE ER 30 MG TAB.ER.24H PO SCH (08:48)
[2025-06-20] MEDS: DULoxetine HCL 60 MG CAPSULE.DR PO SCH (08:48)
[2025-06-20] MEDS: ASPIRIN 81 MG PO SCH (08:48)
[2025-06-20] MEDS: METOPROLOL SUCCINATE (ER) 25 MG TAB.ER.24H PO SCH (08:48)
[2025-06-20] MEDS: FAMOTIDINE 20 MG TAB PO SCH (08:48)
[2025-06-20] MEDS: DAPAGLIFLOZIN PROPANEDIOL 10 MG TABLET PO SCH (08:49)
[2025-06-20] MEDS: TAMSULOSIN 0.4 MG CAP.ER.24H PO SCH (08:49)
[2025-06-20] MEDS: ASCORBIC ACID 500 MG TAB PO SCH (08:49)
[2025-06-20] MEDS: NON FORMULARY DRUG (Mirabegron [Myrbetriq] 50 MG Tab.Er.24h) PO SCH (08:56)
[2025-06-20] MEDS ORDERED: VANCOMYCIN 1,750 MG in SODIUM CHLORIDE 0.9% 500 ML 500 ML IVPB SCH (09:00)
--- NOTE | 2025-06-20 10:11 | P.CONS ---
History of Present Illness - Reason for Consult Consult date: 06/19/25 Sacral ulcer/UTI Requesting physician: Carmen Miranda - Chief Complaint Worsening wound to the gluteal area x days - History of Present Illness Patient is a 75-year-old female with a past medical history significant for Heart Failure, COPD, Diabetes Mellitus, GERD/Reflux, Hypertension, Renal Disease, Sleep Apnea/CPAP/BIPAP presenting to the hospital for evaluation of worsening pain to the bilateral gluteal pressure ulcer which apparently the patient has been there for about a month and is being regulated by the visiting nurses however noticed to have worsening of the wound and she was advised to go to the hospital patient denies having any fever or any chills which denies having any headache chest pain shortness of breath or cough no nausea vomiting abdominal pain or diarrhea has been complaining of sharp pain to bilateral gluteal pressure ulcer moderate intensity without radiation did have some drainage patient also have a ulceration to the left lower extremity likely from a ruptured blister with surrounding erythema which apparently has been going on for the last few days, presentation to the hospital patient was afebrile and no fever have recorded subsequently patient was mildly tachycardic and hypertensive not requiring any pressor support patient did have a white count of 11.85 with a left shift BUN and creatinine has been mildly elevated liver enzymes are normal urine has been positive patient was started on vancomycin infectious disease was consulted for further management of antibiotic therapy Review of Systems Positive point and negatives has been mentioned in the HPI, complete review of systems was performed and all other systems are negative 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, HAS METAL IN BACK, KRISTINE CATARACTS, KRISTINE HIP REPLACEMENTS, KRISTINE HANDS TRIGGER FINGER SX'S; Shoulder Arthroscopy; has Fx R upper arm, lap band Past Anesthesia/Blood Transfusion Reactions: No Reported Reaction, Previous Problems w/ Anesthesia Additional Past Anesthesia/Blood Transfusion Reaction / Comm: trouble waking up from anesthesia Past Psychological History: Depression Smoking Status: Former smoker Past Alcohol Use History: None Reported Past Drug Use History: None Reported - Past Family History Mother Family Medical History: Cancer, Coronary Artery Disease (CAD) Additional Family Medical History / Comment(s): MOTHER HAD STOMACH CANCER Father Family Medical History: Coronary Artery Disease (CAD), Diabetes Mellitus Brother(s) Family Medical History: Cancer Additional Family Medical History / Comment(s): BROTHER HAD PROSTATE CANCER Medications and Allergies Home Medications Medication Instructions Recorded Confirmed Type HYDROcodone/APAP 10-325MG [[place] 1 tab PO Q6HR PRN 06/17/14 06/18/25 History 10-325] rOPINIRole HCL [Requip] 2 mg PO QID 06/17/14 06/18/25 History Montelukast [Singulair] 10 mg PO HS 06/17/18 06/18/25 History Pantoprazole Sodium [Protonix] 40 mg PO BID #60 tablet. 02/08/19 06/18/25 Rx Cinnamon Bark [Cinnamon] 2,000 mg PO DAILY@1200 02/05/24 06/18/25 History Insulin Glargine,Hum.rec.anlog 49 units SQ HS@199902/05/24 06/18/25 History [Lantus Solostar Pen] Mirabegron [Myrbetriq] 50 mg PO DAILY 02/05/24 06/18/25 History Sacubitril/Valsartan [Entresto 49 1 tab PO BID 02/05/24 06/18/25 History mg-51 mg Tablet] Tamsulosin [Flomax] 0.4 mg PO DAILY 02/05/24 06/18/25 History busPIRone HCl [Buspar] 10 mg PO BID PRN 02/05/24 06/18/25 History tiZANidine [Zanaflex] 4 mg PO BID PRN 02/05/24 06/18/25 History Dapagliflozin Propanediol [Farxiga] 10 mg PO DAILY #30 tab 02/07/24 06/18/25 Rx Metoprolol Succinate (ER) [Toprol 25 mg PO DAILY #30 tab 02/07/24 06/18/25 Rx XL] Aspirin EC [Ecotrin Low Dose] 81 mg PO DAILY 06/18/25 06/18/25 History Atorvastatin [Lipitor] 40 mg PO HS 06/18/25 06/18/25 History DULoxetine HCL [Cymbalta] 60 mg PO DAILY 06/18/25 06/18/25 History Ferrous Sulfate [Feosol] 325 mg PO W/BRKFST 06/18/25 06/18/25 History Isosorbide Mononitrate ER [Imdur] 30 mg PO DAILY 06/18/25 06/18/25 History Miconazole 2% Powder 1 applic TOPICAL BID 06/18/25 06/18/25 History Pregabalin [Lyrica] 200 mg PO BID 06/18/25 06/18/25 History QUEtiapine [SEROquel] 100 mg PO HS 06/18/25 06/18/25 History Spironolactone [Aldactone] 25 mg PO DAILY 06/18/25 06/18/25 History Topiramate [Topamax] 50 mg PO HS 06/18/25 06/18/25 History Allergies Allergy/AdvReac Type Severity Reaction Status Date / Time buprenorphine HCl Allergy Rash/Hives Verified 06/18/25 18:24 [From Buprenex] Iodinated Contrast Media Allergy Rash/Hives Verified 06/18/25 18:24 [Iodinated Contrast- Oral and IV Dye] latex Allergy skin Verified 06/18/25 18:24 cracks and bleeds Penicillins Allergy Anaphylaxis Verified 06/18/25 18:24 prochlorperazine maleate Allergy Anaphylaxis Verified 06/18/25 18:24 [From Compazine] codeine AdvReac Nausea & Verified 06/18/25 18:24 Vomiting morphine AdvReac Abdominal Verified 06/18/25 18:24 Pain prochlorperazine edisylate AdvReac Anaphylaxis Verified 06/18/25 18:24 [From Compazine] ivp dye Allergy Rash/Hives Uncoded 06/18/25 18:24 Physical Exam Vitals: Vital Signs Temp Pulse Resp BP Pulse Ox 06/19/25 11:22 97 06/19/25 10:42 98 18 128/78 88 L 06/19/25 08:10 90 20 159/73 100 06/19/25 04:28 97.8 F 89 17 105/49 97 06/18/25 23:41 98 17 123/58 95 06/18/25 21:38 92 20 112/75 93 L 06/18/25 18:53 80 20 105/55 94 L 06/18/25 17:47 82 06/18/25 17:32 84 06/18/25 13:52 98.3 F 80 20 114/57 94 L Intake and Output 06/18/25 06/19/25 06/19/25 22:59 06:59 14:59 Output Total 1100 1200 Balance -1100 -1200 Output: Urine 1100 1200 GENERAL DESCRIPTION: Elderly female lying in bed, no distress. No tachypnea or accessory muscle of respiration use. HEENT: Shows Pallor , no scleral icterus. Oral mucous membrane is dry. NECK: Trachea central, no thyromegaly. LUNGS: Unlabored breathing. Clear to auscultation anteriorly. No wheeze or crackle. HEART: S1, S2, regular rate and rhythm. No loud murmur ABDOMEN: Soft, no tenderness , guarding or rigidity, no organomegaly EXTREMITIES: Left lower extremity swelling with minimal erythema in the left hip. SKIN: Patient did have a stage III pressure ulceration to bilateral gluteal area with some purulent drainage which was cultured. NEUROLOGICAL: The patient is awake, alert, oriented x3, mood and affect normal. Results CBC & Chem 7: 06/20/25 00:04 06/20/25 00:04 Labs: Abnormal Lab Results - Last 24 Hours (Table) 06/18/25 06/18/25 06/18/25 Range/Units 14:34 15:00 15:00 WBC 11.85 H (4.50-10.00) 10*3/uL MCHC 31.2 L (32.0-37.0) g/dL Immature Gran # 0.10 H (0.00-0.04) 10*3/uL Neutrophils # 9.02 H (1.80-7.70) 10*3/uL Sodium 136 L (137-145) mmol/L Potassium 6.2 H* (3.5-5.1) mmol/L Carbon Dioxide (22-30) mmol/L BUN 29 H (7-17) mg/dL Creatinine 1.30 H (0.52-1.04) mg/dL Glucose 173 H (74-99) mg/dL POC Glucose (mg/dL) (70-110) mg/dL AST (14-36) U/L Urine Appearance Turbid H (Clear) Urine Glucose (UA) 4+ H (Negative) Urine Blood Small H (Negative) Ur Leukocyte Esterase Large H (Negative) Urine RBC 7 H (0-5) /hpf Urine WBC >182 H (0-5) /hpf Urine WBC Clumps Many H (None) /hpf 06/18/25 06/18/25 06/19/25 Range/Units 19:59 19:59 06:59 WBC (4.50-10.00) 10*3/uL MCHC (32.0-37.0) g/dL Immature Gran # (0.00-0.04) 10*3/uL Neutrophils # (1.80-7.70) 10*3/uL Sodium (137-145) mmol/L Potassium 5.2 H (3.5-5.1) mmol/L Carbon Dioxide 31 H (22-30) mmol/L BUN 25 H (7-17) mg/dL Creatinine 1.36 H (0.52-1.04) mg/dL Glucose 112 H (74-99) mg/dL POC Glucose (mg/dL) 122 H (70-110) mg/dL AST 56 H (14-36) U/L Urine Appearance (Clear) Urine Glucose (UA) (Negative) Urine Blood (Negative) Ur Leukocyte Esterase (Negative) Urine RBC (0-5) /hpf Urine WBC (0-5) /hpf Urine WBC Clumps (None) /hpf 06/19/25 Range/Units 07:03 WBC (4.50-10.00) 10*3/uL MCHC (32.0-37.0) g/dL Immature Gran # (0.00-0.04) 10*3/uL Neutrophils # (1.80-7.70) 10*3/uL Sodium (137-145) mmol/L Potassium (3.5-5.1) mmol/L Carbon Dioxide (22-30) mmol/L BUN (7-17) mg/dL Creatinine 1.21 H (0.52-1.04) mg/dL Glucose (74-99) mg/dL POC Glucose (mg/dL) (70-110) mg/dL AST (14-36) U/L Urine Appearance (Clear) Urine Glucose (UA) (Negative) Urine Blood (Negative) Ur Leukocyte Esterase (Negative) Urine RBC (0-5) /hpf Urine WBC (0-5) /hpf Urine WBC Clumps (None) /hpf Assessment and Plan (1) Pressure ulcer Current Visit: Yes Status: Acute Code(s): L89.90 - PRESSURE ULCER OF UNSPECIFIED SITE, UNSPECIFIED STAGE SNOMED Code(s): 1244270830 (2) Penicillin allergy Current Visit: Yes Status: Acute Code(s): Z88.0 - ALLERGY STATUS TO PENICILLIN SNOMED Code(s): 74444454 Plan: 1patient with bilateral gluteal stage III pressure ulcer with some purulent drainage concerning for wound infection and cellulitis and will need to cover for both gram-positive as well as gram-negative pathogen 2-patient also have a left lower extremity superficial ulceration and secondary cellulitis. 3did have a positive UA with minimal symptom of urinary burning Likely representing UTI from enteric gram-negative pathogen 4patient did have penicillin allergy that would limit the number of antibiotic safe to use 5patient will be empirically treated with vancomycin pharmacy to dose while watching kidney function closely and cefepime while waiting for the culture to finalize We will follow on clinical condition and cultures to further adjust medication if needed Thank you for this consultation we will follow the patient along with you Dictation was produced using [employer] dictation software. please excuse any grammatical, word or spelling errors. Time with Patient: Greater than 30
--- NOTE | 2025-06-20 10:58 | P.PN ---
Subjective Progress Note Date: 06/20/25 Follwoing for CKD and Hyperkalemia The patient was seen today, still c/o generalized body aches. no other new complaints. Tolerating PO intake, Stable Vitals stable renal function and K level Objective - Vital Signs Vital signs: Vital Signs Temp 98.4 F 06/20/25 08:08 Pulse 101 H 06/20/25 08:08 Resp 19 06/20/25 08:08 BP 92/57 06/20/25 08:08 Pulse Ox 97 06/20/25 09:02 FiO2 Intake & Output 06/19/25 06/20/25 06/20/25 18:59 06:59 18:59 Intake Total 100 Output Total 900 400 Balance -900 -300 Weight 118.8 kg Intake: Oral 100 Output: Urine 900 400 Other: Voiding Method External Catheter External Catheter - Exam General: No acute distress Head: atraumatic, normocephalic, symmetric Cardiovascular: S1S2 reg, no murmur, positive dorsalis pedis pulse bilateral, no edema Lungs: CTA bilateral, no rhonchi, no rales, no accessory muscle use Abdominal: soft, non-tender to palpation, no guarding Ext: right big toe amputation, left foot amputation, left lower extremity ulcer surrounded by redness and warmth Neuro: CN II-XI grossly intact, no gross focal neuro deficits Psych: Alert, oriented x3 - Labs CBC & Chem 7: 06/20/25 00:04 06/20/25 00:04 Labs: Abnormal Lab Results - Last 24 Hours (Table) 06/19/25 06/19/25 06/19/25 Range/Units 14:30 14:30 17:03 Hct 46.9 H (37.2-46.3) % MCHC 30.5 L (32.0-37.0) g/dL RDW (11.5-14.5) % Immature Gran # 0.13 H (0.00-0.04) 10*3/uL Potassium 5.8 H (3.5-5.1) mmol/L BUN 20 H (7-17) mg/dL Creatinine 1.12 H (0.52-1.04) mg/dL Glucose 158 H (74-99) mg/dL POC Glucose (mg/dL) 121 H (70-110) mg/dL Hemoglobin A1c (<=6.0) % AST (14-36) U/L ALT (4-34) U/L Alkaline Phosphatase (38-126) U/L Albumin (3.5-5.0) g/dL 06/19/25 06/19/25 06/20/25 Range/Units 20:18 23:57 00:02 Hct (37.2-46.3) % MCHC (32.0-37.0) g/dL RDW (11.5-14.5) % Immature Gran # (0.00-0.04) 10*3/uL Potassium 5.4 H (3.5-5.1) mmol/L BUN (7-17) mg/dL Creatinine (0.52-1.04) mg/dL Glucose (74-99) mg/dL POC Glucose (mg/dL) 117 H (70-110) mg/dL Hemoglobin A1c 10.3 H (<=6.0) % AST (14-36) U/L ALT (4-34) U/L Alkaline Phosphatase (38-126) U/L Albumin (3.5-5.0) g/dL 06/20/25 06/20/25 06/20/25 Range/Units 00:04 00:04 06:23 Hct 46.5 H (37.2-46.3) % MCHC 30.3 L (32.0-37.0) g/dL RDW 16.0 H (11.5-14.5) % Immature Gran # 0.15 H (0.00-0.04) 10*3/uL Potassium 5.5 H (3.5-5.1) mmol/L BUN 18 H (7-17) mg/dL Creatinine 1.07 H (0.52-1.04) mg/dL Glucose 156 H (74-99) mg/dL POC Glucose (mg/dL) 122 H (70-110) mg/dL Hemoglobin A1c (<=6.0) % AST 40 H (14-36) U/L ALT 35 H (4-34) U/L Alkaline Phosphatase 143 H (38-126) U/L Albumin 3.2 L (3.5-5.0) g/dL Microbiology - Last 24 Hours (Table) 06/19/25 14:43 Gram Stain - Preliminary Buttock 06/18/25 14:34 Urine Culture - Final Urine,Voided 06/18/25 15:00 Blood Culture - Preliminary Blood Assessment and Plan Assessment: 1. Chronic Kidney Disease stage 3, cr. 1.3 mg/dl on admission, seems to be around baseline, cr. in 2023 fluctuates 1.0-1.8. , UA + WBC/ RBC, WBC clumps , no imaging , cr. trend to 1.0. 2. Hyperkalemia, on Entresto and Aldactone , improved post medical management 3. sacral ulcer/ left LE ulcer, started on broad spectrum antibiotics 4. UTI , on antibiotics , urine cx no growth after 18 hours Plan: supportive care continue medical management of hyperkalemia as needed continue to hold Entresto and Aldactone continue IV antibiotics monitor renal panel daily monitor UO, check bladder scan if urine retention is suspected check Vancomycin level
[2025-06-20 11:43] LABS: Glucose,Whole Blood 127 mg/dL (70-110)
[2025-06-20] MEDS: SODIUM ZIRCONIUM CYCLOSILICATE 10 GM PACKET PO ONE (14:20)
--- NOTE | 2025-06-20 15:05 | P.PN ---
Subjective Progress Note Date: 06/20/25 Patient reports doing about the same as yesterday. Denies any new symptoms overnight. Understands plan for continued antibiotics while inpatient. Still does not wish to go to rehab at time of discharge. Objective - Vital Signs Vital signs: Vital Signs Temp 97.6 F 06/20/25 13:05 Pulse 89 06/20/25 13:05 Resp 18 06/20/25 13:05 BP 126/70 06/20/25 13:05 Pulse Ox 95 06/20/25 13:05 FiO2 Intake & Output 06/19/25 06/20/25 06/20/25 18:59 06:59 18:59 Intake Total 100 Output Total 900 400 Balance -900 -300 Weight 118.8 kg Intake: Oral 100 Output: Urine 900 400 Other: Voiding Method External Catheter External Catheter # Voids 1 - Exam Vital signs reviewed General: non toxic, moderate distress, appears at stated age Derm: Sacral wound covered by dressing. No increased erythema. Head: atraumatic, normocephalic, symmetric ENT: Nose and ears atraumatic Neck: No cervical lymphadenopathy, trachea midline, supple Mouth: no lip lesion, mucus membranes moist Cardiovascular: S1S2 reg, no murmur, positive dorsalis pedis pulse bilateral, no edema Lungs: CTA bilateral, no rhonchi, no rales, no accessory muscle use Abdominal: soft, non-tender to palpation, no guarding Ext: right big toe amputation, left foot amputation, left lower extremity ulcer covered by clean dressing. Neuro: CN II-XI grossly intact, no gross focal neuro deficits Psych: Alert, oriented to person, place, and time - Labs CBC & Chem 7: 06/20/25 00:04 06/20/25 00:04 Labs: Abnormal Lab Results - Last 24 Hours (Table) 06/19/25 06/19/25 06/19/25 Range/Units 14:30 17:03 20:18 Hct (37.2-46.3) % MCHC (32.0-37.0) g/dL RDW (11.5-14.5) % Immature Gran # (0.00-0.04) 10*3/uL Potassium 5.8 H (3.5-5.1) mmol/L BUN 20 H (7-17) mg/dL Creatinine 1.12 H (0.52-1.04) mg/dL Glucose 158 H (74-99) mg/dL POC Glucose (mg/dL) 121 H 117 H (70-110) mg/dL Hemoglobin A1c (<=6.0) % AST (14-36) U/L ALT (4-34) U/L Alkaline Phosphatase (38-126) U/L Albumin (3.5-5.0) g/dL 06/19/25 06/20/25 06/20/25 Range/Units 23:57 00:02 00:04 Hct (37.2-46.3) % MCHC (32.0-37.0) g/dL RDW (11.5-14.5) % Immature Gran # (0.00-0.04) 10*3/uL Potassium 5.4 H 5.5 H (3.5-5.1) mmol/L BUN 18 H (7-17) mg/dL Creatinine 1.07 H (0.52-1.04) mg/dL Glucose 156 H (74-99) mg/dL POC Glucose (mg/dL) (70-110) mg/dL Hemoglobin A1c 10.3 H (<=6.0) % AST 40 H (14-36) U/L ALT 35 H (4-34) U/L Alkaline Phosphatase 143 H (38-126) U/L Albumin 3.2 L (3.5-5.0) g/dL 06/20/25 06/20/25 06/20/25 Range/Units 00:04 06:23 11:41 Hct 46.5 H (37.2-46.3) % MCHC 30.3 L (32.0-37.0) g/dL RDW 16.0 H (11.5-14.5) % Immature Gran # 0.15 H (0.00-0.04) 10*3/uL Potassium (3.5-5.1) mmol/L BUN (7-17) mg/dL Creatinine (0.52-1.04) mg/dL Glucose (74-99) mg/dL POC Glucose (mg/dL) 122 H 127 H (70-110) mg/dL Hemoglobin A1c (<=6.0) % AST (14-36) U/L ALT (4-34) U/L Alkaline Phosphatase (38-126) U/L Albumin (3.5-5.0) g/dL Microbiology - Last 24 Hours (Table) 06/19/25 14:43 Gram Stain - Preliminary Buttock 06/18/25 14:34 Urine Culture - Final Urine,Voided 06/18/25 15:00 Blood Culture - Preliminary Blood Assessment and Plan Assessment: Patient is a 75-year-old female with with heart failure, COPD, vol-[id number] diabetes mellitus, hypertension, PAD presenting with superficial sacral ulcer. #. Infected Superficial sacral ulcer, grade 3 #. Left lower extremitiy venous ulcer IV vancomycin, monitor renal function Wound care consult Discussed with ID, continue cefepime 2 g, IVPB every 8 hours - No need for ulcer debridement at this time per ID Continue to discuss rehab options with patient daily Resume home [place] [id number], continue morphine 24 mg IV every 4 hours as needed - frequent turns - Not interested in Rehab will be difficult to heal as she is unable to clean herself. - Preliminary blood and wound cultures show no organisms or growth seen after 24 hours #. Urinary tract infection Patient endorses urinary frequency, dysuria, history of ESBL UA displaying large leukocyte esterase, urine WBC >182, small urine blood, glucose 4+ Urine culture shows no growth after 18 hours On IV vancomycin and cefepime ID consulted #. Hyperkalemia Potassium today 5.5 Lokelma 10 mg given again today Aldactone and Entresto on hold, may consider sending patient home with Lokelma Repeat potassium at midnight, repeat BMP in a.m. Nephrology consulted by ED #. Generalized weakness PT/OT consulted #. Insulin-dependent diabetes mellitus Humalog insulin SQ sliding scale Lantus 49 units SQ at bedtime Accu-Cheks ACHS, hypoglycemic precautions A1c 10.3 Chronic: CKD stage III: Baseline creatinine 1.12 HFrEF, not in exacerbation: Continue GDMT of Entresto 49-51 mg QD (held due to hyperkalemia), Toprol-XL 25 mg QD Aldactone 25 mg daily(held due to hyperkalemia), Farxiga COPD, not in exacerbation: Singulair 10 mg p.o. at bedtime, LEONCIO: Ferrous sulfate 325 mg p.o. daily with 500 mg vitamin C Depression/anxiety: Cymbalta 60 mg daily, buspirone 10 mg p.o. twice daily as needed Hyperlipidemia: Atorvastatin 40 mg at bedtime PAD: Aspirin 81 mg daily Urinary incontinence: Flomax 0.4 mg daily, Topamax 50 mg p.o. at bedtime Neuropathy: Continue Lyrica F: N/A E: Replete electrolytes as needed N: Renal diet A: PT/OT consulted DVT prophylaxis: Heparin 5000 unit SQ q 8 hours CODE STATUS:: Full code Anticipated discharge place: Pending clinical course Eduin Perez MD PGY-1 TY Dictation was produced using [employer] dictation software. please excuse any grammatical, word or spelling errors. I saw and evaluated the patient during the smith and critical portions of this encounter, and discussed the case in detail with the resident author of this note, I agree with the Assessment and Plan, and my changes, if any, are highlighted in blue.
--- NOTE | 2025-06-20 15:34 | P.PN ---
Subjective Progress Note Date: 06/20/25 Principal diagnosis: Reason for follow-up is bilateral gluteal infected pressure ulcer and left leg ulcer and cellulitis Patient is a 75-year-old female with a past medical history significant for Heart Failure, COPD, Diabetes Mellitus, GERD/Reflux, Hypertension, Renal Disease, Sleep Apnea/CPAP/BIPAP presenting to the hospital for evaluation of worsening pain to the bilateral gluteal pressure ulcer and also noticed to have left lower extremity ulcer and cellulitis. On today's evaluation that is 06/20/2025, Patient is afebrile patient is currently on 3 L nasal oxygen and denies having any shortness of breath, the patient denies any chest pain or cough, the patient denies any nausea vomiting did not have any abdominal pain and no diarrhea, still complaining of pain to bilateral gluteal pressure ulcer. Patient white count normal at 9.41, creatinine 1.07 cultures are currently pending Objective - Vital Signs Vital signs: Vital Signs Temp 97.6 F 06/20/25 13:05 Pulse 89 06/20/25 13:05 Resp 18 06/20/25 13:05 BP 126/70 06/20/25 13:05 Pulse Ox 95 06/20/25 13:05 FiO2 Intake & Output 06/19/25 06/20/25 06/20/25 18:59 06:59 18:59 Intake Total 100 Output Total 900 400 Balance -900 -300 Weight 118.8 kg Intake: Oral 100 Output: Urine 900 400 Other: Voiding Method External Catheter External Catheter # Voids 1 - Exam GENERAL DESCRIPTION: An elderly female lying in bed in no distress RESPIRATORY SYSTEM: Unlabored breathing , decreased breath sounds at bases HEART: S1 S2 regular rate and rhythm , ABDOMEN: Soft , no tenderness EXTREMITIES: Left leg swelling redness slightly decreased - Labs CBC & Chem 7: 06/20/25 00:04 06/20/25 00:04 Labs: Abnormal Lab Results - Last 24 Hours (Table) 06/19/25 06/19/25 06/19/25 Range/Units 17:03 20:18 23:57 Hct (37.2-46.3) % MCHC (32.0-37.0) g/dL RDW (11.5-14.5) % Immature Gran # (0.00-0.04) 10*3/uL Potassium 5.4 H (3.5-5.1) mmol/L BUN (7-17) mg/dL Creatinine (0.52-1.04) mg/dL Glucose (74-99) mg/dL POC Glucose (mg/dL) 121 H 117 H (70-110) mg/dL Hemoglobin A1c (<=6.0) % AST (14-36) U/L ALT (4-34) U/L Alkaline Phosphatase (38-126) U/L Albumin (3.5-5.0) g/dL 06/20/25 06/20/25 06/20/25 Range/Units 00:02 00:04 00:04 Hct 46.5 H (37.2-46.3) % MCHC 30.3 L (32.0-37.0) g/dL RDW 16.0 H (11.5-14.5) % Immature Gran # 0.15 H (0.00-0.04) 10*3/uL Potassium 5.5 H (3.5-5.1) mmol/L BUN 18 H (7-17) mg/dL Creatinine 1.07 H (0.52-1.04) mg/dL Glucose 156 H (74-99) mg/dL POC Glucose (mg/dL) (70-110) mg/dL Hemoglobin A1c 10.3 H (<=6.0) % AST 40 H (14-36) U/L ALT 35 H (4-34) U/L Alkaline Phosphatase 143 H (38-126) U/L Albumin 3.2 L (3.5-5.0) g/dL 06/20/25 06/20/25 Range/Units 06:23 11:41 Hct (37.2-46.3) % MCHC (32.0-37.0) g/dL RDW (11.5-14.5) % Immature Gran # (0.00-0.04) 10*3/uL Potassium (3.5-5.1) mmol/L BUN (7-17) mg/dL Creatinine (0.52-1.04) mg/dL Glucose (74-99) mg/dL POC Glucose (mg/dL) 122 H 127 H (70-110) mg/dL Hemoglobin A1c (<=6.0) % AST (14-36) U/L ALT (4-34) U/L Alkaline Phosphatase (38-126) U/L Albumin (3.5-5.0) g/dL Microbiology - Last 24 Hours (Table) 06/19/25 14:43 Gram Stain - Preliminary Buttock 06/18/25 14:34 Urine Culture - Final Urine,Voided 06/18/25 15:00 Blood Culture - Preliminary Blood Assessment and Plan (1) Pressure ulcer Current Visit: Yes Status: Acute Code(s): L89.90 - PRESSURE ULCER OF UNSPECIFIED SITE, UNSPECIFIED STAGE SNOMED Code(s): 3847319962 (2) Penicillin allergy Current Visit: Yes Status: Acute Code(s): Z88.0 - ALLERGY STATUS TO PENICILLIN SNOMED Code(s): 84880865 Plan: 1patient with bilateral gluteal stage III pressure ulcer with some purulent drainage concerning for wound infection and cellulitis and will need to cover for both gram-positive as well as gram-negative pathogen 2-patient also have a left lower extremity superficial ulceration and secondary cellulitis. 3did have a positive UA with minimal symptom of urinary burning, urine culture has been negative 4patient did have penicillin allergy that would limit the number of antibiotic safe to use 5patient to continue local care with [facility] followed by moist dressing along with with vancomycin pharmacy to dose and cefepime while waiting for the culture to finalize Dictation was produced using [employer] dictation software. please excuse any grammatical, word or spelling errors. Time with Patient: Less than 30
[2025-06-20 17:04] LABS: Glucose,Whole Blood 177 mg/dL (70-110)
[2025-06-20 20:04] LABS: Glucose,Whole Blood 174 mg/dL (70-110)
[2025-06-20] MEDS: CEFEPIME 2 GM in SODIUM CHLORIDE 0.9% 100 ML IVPB SCH (20:48)
[2025-06-20] MEDS: VANCOMYCIN 1,750 MG in SODIUM CHLORIDE 0.9% 500 ML 500 ML IVPB SCH (21:22)
[2025-06-21 04:54] LABS: Basophils # (A) 0.05 10*3/uL (0.00-0.10); Basophils % (A) 0.7 %; Eosinophils # (A) 0.25 10*3/uL (0.04-0.35); Eosinophils % (A) 3.4 %; HCT 43.0 % (37.2-46.3); HGB 13.3 g/dL (12.0-15.0); Lymphocytes # (A) 1.73 10*3/uL (0.90-5.00); Lymphocytes % (A) 23.8 %; MCH 27.5 pg (27.0-32.0); MCHC 30.9 g/dL (32.0-37.0); MCV 88.8 fL (80.0-97.0); Monocytes # (A) 0.83 10*3/uL (0.20-1.00); Monocytes % (A) 11.4 %; Neutrophils # (A) 4.19 10*3/uL (1.80-7.70); Neutrophils % (A) 57.5 %; Platelet Count 210 10*3/uL (140-440); RBC 4.84 10*6/uL (4.10-5.20); RDW 15.9 % (11.5-14.5); WBC 7.28 10*3/uL (4.50-10.00)
[2025-06-21 05:53] LABS: ALT 23 U/L (4-34); AST 28 U/L (14-36); African American GFR (CKD) 54 (>60 ml/min/1.73 sqM); Albumin 2.9 g/dL (3.5-5.0); Albumin/Globulin Ratio 1.0; Alkaline Phosphatase 98 U/L (38-126); Anion Gap 6 mmol/L; Blood Urea Nitrogen 20 mg/dL (7-17); Calcium 8.7 mg/dL (8.4-10.2); Carbon Dioxide 28 mmol/L (22-30); Chloride 104 mmol/L (98-107); Globulin 3.0 g/dL; Glucose 103 mg/dL (74-99); Non-African American GFR(CKD) 46 (>60 ml/min/1.73 sqM); Potassium 4.9 mmol/L (3.5-5.1); Sodium 138 mmol/L (137-145); Total Protein 5.9 g/dL (6.3-8.2)
[2025-06-21 05:55] LABS: RBC Morphology Normal
[2025-06-21 06:03] LABS: Glucose,Whole Blood 96 mg/dL (70-110)
--- NOTE | 2025-06-21 11:18 | P.PN ---
Subjective Progress Note Date: 06/21/25 No new complaints. Pending physical therapy evaluation, case management working on dispo. Gen: In NAD, non-toxic HEENT: normocephalic, atraumatic, hearing acuity is intant, mucous membranes moist CVS: perfusing all extremities well, no pitting edema, Respiratory: symmetric chest expansion, no accessory muscle use, GI: soft, NTTP, ND, : no suprapubic tenderness, no CVA tenderness MSK/Derm: no rashes, cyanosis Neuro: CN II-XII intact, no motor weakness, Hospital course: Assessment/plan: Patient is a 75-year-old female with with heart failure, COPD, gby-cvqkwgv-vpcfiktyb diabetes mellitus, hypertension, PAD presenting with superficial sacral ulcer. #. Infected Superficial sacral ulcer, grade 3 #. Left lower extremitiy venous ulcer IV vancomycin, cefepime monitor renal function Wound care consult ID consult appreciated Continue to discuss rehab options with patient daily Resume home [place] [id number], continue morphine 24 mg IV every 4 hours as needed - frequent turns - Not interested in Rehab will be difficult to heal as she is unable to clean herself. - Preliminary blood and wound cultures show no organisms or growth seen after 24 hours #. Urinary tract infection, complicated On IV vancomycin and cefepime ID consulted #. Hyperkalemia Aldactone and Entresto on hold, may consider sending patient home with [facility] Repeat potassium at midnight, repeat BMP in a.m. Nephrology consulted by ED #. Generalized weakness PT/OT consulted #. Insulin-dependent diabetes mellitus Humalog insulin SQ sliding scale Lantus 49 units SQ at bedtime Accu-Cheks ACHS, hypoglycemic precautions A1c 10.3 Chronic: CKD stage III: Baseline creatinine 1.12 HFrEF, not in exacerbation: Continue GDMT of Entresto 49-51 mg QD (held due to hyperkalemia), Toprol-XL 25 mg QD Aldactone 25 mg daily(held due to hyperkalemia), Farxiga COPD, not in exacerbation: Singulair 10 mg p.o. at bedtime, LEONCIO: Ferrous sulfate 325 mg p.o. daily with 500 mg vitamin C Depression/anxiety: Cymbalta 60 mg daily, buspirone 10 mg p.o. twice daily as needed Hyperlipidemia: Atorvastatin 40 mg at bedtime PAD: Aspirin 81 mg daily Urinary incontinence: Flomax 0.4 mg daily, Topamax 50 mg p.o. at bedtime Neuropathy: Continue Lyrica F: N/A E: Replete electrolytes as needed N: Renal diet A: PT/OT consulted DVT prophylaxis: Heparin 5000 unit SQ q 8 hours CODE STATUS:: Full code Anticipated discharge place: Pending clinical course Objective - Vital Signs Vital signs: Vital Signs Temp 97.6 F 06/21/25 07:30 Pulse 89 06/21/25 07:30 Resp 18 06/21/25 07:30 BP 120/73 06/21/25 07:30 Pulse Ox 100 06/21/25 09:27 FiO2 Intake & Output 06/20/25 06/21/25 06/21/25 18:59 06:59 18:59 Weight 118.5 kg Other: Voiding Method External Catheter Toilet # Voids 1 1 - Labs CBC & Chem 7: 06/21/25 03:02 06/21/25 03:02 Labs: Abnormal Lab Results - Last 24 Hours (Table) 06/20/25 06/20/25 06/20/25 Range/Units 11:41 17:00 20:02 MCHC (32.0-37.0) g/dL RDW (11.5-14.5) % Immature Gran # (0.00-0.04) 10*3/uL BUN (7-17) mg/dL Creatinine (0.52-1.04) mg/dL Glucose (74-99) mg/dL POC Glucose (mg/dL) 127 H 177 H 174 H (70-110) mg/dL Total Protein (6.3-8.2) g/dL Albumin (3.5-5.0) g/dL 06/21/25 06/21/25 Range/Units 03:02 03:02 MCHC 30.9 L (32.0-37.0) g/dL RDW 15.9 H (11.5-14.5) % Immature Gran # 0.23 H (0.00-0.04) 10*3/uL BUN 20 H (7-17) mg/dL Creatinine 1.15 H (0.52-1.04) mg/dL Glucose 103 H (74-99) mg/dL POC Glucose (mg/dL) (70-110) mg/dL Total Protein 5.9 L (6.3-8.2) g/dL Albumin 2.9 L (3.5-5.0) g/dL Microbiology - Last 24 Hours (Table) 06/18/25 15:00 Blood Culture - Preliminary Blood 06/19/25 14:43 Gram Stain - Preliminary Buttock Wound Culture - Preliminary Escherichia coli Enterococcus faecalis Staphylococcus epidermidis
[2025-06-21 12:12] LABS: Glucose,Whole Blood 86 mg/dL (70-110)
--- NOTE | 2025-06-21 12:16 | P.CONS ---
History of Present Illness - Reason for Consult Consult date: 06/21/25 wound care - History of Present Illness This is a 75-year-old patient being seen on 4 [address]. for stage II pressure ulcer to the right and left buttocks. Patient has past medical history significant for heart failure COPD diabetes GERD hypertension sleep apnea and renal disease. Patient states that the ulcerations have been there for a few months she has been treated with home care and she is unsure of the products that are being used. Patient does have a significant amount of discomfort to the ulcerations. Patient has a cluster of 2 ulcerations to the left buttocks measuring approximately 4 x 4 x 0.1 and 1 x 1 x 0.1 cm ulcerations have fat layer exposure slough and nonviable tissue wound edges are attached to the wound base there is no tunneling or undermining noted. Minimal granulation noted. Right buttocks has a ulceration that measures approximately 2.5 x 2.5 x 0.1 cm with fat layer exposed to slough and nonviable tissue present. Minimal granulation noted. Patient does have serous drainage from both ulcerations. Review Of Systems: Constitutional: No fever, no chills, no night sweats. No weight change. No weakness, fatigue or lethargy. No daytime sleepiness. Integumentary:reports wounds, no lesions. No rash or pruritus. No unusual bruising. No change in hair or nails. Physical exam: General Appearance: Alert, cooperative, no distress, appears stated age. Skin: See HPI all other Skin color, texture, tugor normal, no rashes or lesions. Neurologic: Alert oriented x3 Assessment: 1. Stage II pressure ulcer left buttocks 2. Stage II pressure ulcer right buttocks 3. Diabetes with skin ulceration Plan: 1. Apply honey gel and sacral border foam. Turn patient every 2 hours. Utilize a air-filled cushion while sitting Thank you for the consultation any questions please contact the wound care center DNP note has been reviewed and discussed with Dr. Chaavrria and the impression and plan of care has been directed as dictated. 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, HAS METAL IN BACK, KRISTINE CATARACTS, KRISTINE HIP REPLACEMENTS, KRISTINE HANDS TRIGGER FINGER SX'S; Shoulder Arthroscopy; has Fx R upper arm, lap band Past Anesthesia/Blood Transfusion Reactions: No Reported Reaction, Previous Problems w/ Anesthesia Additional Past Anesthesia/Blood Transfusion Reaction / Comm: trouble waking up from anesthesia Past Psychological History: Depression Smoking Status: Former smoker Past Alcohol Use History: None Reported Past Drug Use History: None Reported - Past Family History Mother Family Medical History: Cancer, Coronary Artery Disease (CAD) Additional Family Medical History / Comment(s): MOTHER HAD STOMACH CANCER Father Family Medical History: Coronary Artery Disease (CAD), Diabetes Mellitus Brother(s) Family Medical History: Cancer Additional Family Medical History / Comment(s): BROTHER HAD PROSTATE CANCER Medications and Allergies Home Medications Medication Instructions Recorded Confirmed Type HYDROcodone/APAP 10-325MG [[place] 1 tab PO Q6HR PRN 06/17/14 06/18/25 History 10-325] rOPINIRole HCL [Requip] 2 mg PO QID 06/17/14 06/18/25 History Montelukast [Singulair] 10 mg PO HS 06/17/18 06/18/25 History Pantoprazole Sodium [Protonix] 40 mg PO BID #60 tablet. 02/08/19 06/18/25 Rx Cinnamon Bark [Cinnamon] 2,000 mg PO DAILY@119902/05/24 06/18/25 History Insulin Glargine,Hum.rec.anlog 49 units SQ HS@199902/05/24 06/18/25 History [Lantus Solostar Pen] Mirabegron [Myrbetriq] 50 mg PO DAILY 02/05/24 06/18/25 History Sacubitril/Valsartan [Entresto 49 1 tab PO BID 02/05/24 06/18/25 History mg-51 mg Tablet] Tamsulosin [Flomax] 0.4 mg PO DAILY 02/05/24 06/18/25 History busPIRone HCl [Buspar] 10 mg PO BID PRN 02/05/24 06/18/25 History tiZANidine [Zanaflex] 4 mg PO BID PRN 02/05/24 06/18/25 History Dapagliflozin Propanediol [Farxiga] 10 mg PO DAILY #30 tab 02/07/24 06/18/25 Rx Metoprolol Succinate (ER) [Toprol 25 mg PO DAILY #30 tab 02/07/24 06/18/25 Rx XL] Aspirin EC [Ecotrin Low Dose] 81 mg PO DAILY 06/18/25 06/18/25 History Atorvastatin [Lipitor] 40 mg PO HS 06/18/25 06/18/25 History DULoxetine HCL [Cymbalta] 60 mg PO DAILY 06/18/25 06/18/25 History Ferrous Sulfate [Feosol] 325 mg PO W/BRKFST 06/18/25 06/18/25 History Isosorbide Mononitrate ER [Imdur] 30 mg PO DAILY 06/18/25 06/18/25 History Miconazole 2% Powder 1 applic TOPICAL BID 06/18/25 06/18/25 History Pregabalin [Lyrica] 200 mg PO BID 06/18/25 06/18/25 History QUEtiapine [SEROquel] 100 mg PO HS 06/18/25 06/18/25 History Spironolactone [Aldactone] 25 mg PO DAILY 06/18/25 06/18/25 History Topiramate [Topamax] 50 mg PO HS 06/18/25 06/18/25 History Allergies Allergy/AdvReac Type Severity Reaction Status Date / Time buprenorphine HCl Allergy Rash/Hives Verified 06/18/25 18:24 [From Buprenex] Iodinated Contrast Media Allergy Rash/Hives Verified 06/18/25 18:24 [Iodinated Contrast- Oral and IV Dye] latex Allergy skin Verified 06/18/25 18:24 cracks and bleeds Penicillins Allergy Anaphylaxis Verified 06/18/25 18:24 prochlorperazine maleate Allergy Anaphylaxis Verified 06/18/25 18:24 [From Compazine] codeine AdvReac Nausea & Verified 06/18/25 18:24 Vomiting morphine AdvReac Abdominal Verified 06/18/25 18:24 Pain prochlorperazine edisylate AdvReac Anaphylaxis Verified 06/18/25 18:24 [From Compazine] ivp dye Allergy Rash/Hives Uncoded 06/18/25 18:24 Physical Exam Vitals: Vital Signs Temp Pulse Resp BP BP Pulse Ox 06/21/25 09:27 100 06/21/25 07:30 97.6 F 89 18 120/73 100 06/21/25 00:57 98.2 F 88 18 103/64 98 06/20/25 20:05 98.0 F 81 19 124/55 93 L 06/20/25 13:05 97.6 F 89 18 126/70 95 Intake and Output 06/20/25 06/21/25 06/21/25 22:59 06:59 14:59 Other: Voiding Method Toilet Toilet # Voids 1 Weight 118.5 kg Results CBC & Chem 7: 06/21/25 03:02 06/21/25 03:02 Labs: Abnormal Lab Results - Last 24 Hours (Table) 06/20/25 06/20/25 06/21/25 Range/Units 17:00 20:02 03:02 MCHC 30.9 L (32.0-37.0) g/dL RDW 15.9 H (11.5-14.5) % Immature Gran # 0.23 H (0.00-0.04) 10*3/uL BUN (7-17) mg/dL Creatinine (0.52-1.04) mg/dL Glucose (74-99) mg/dL POC Glucose (mg/dL) 177 H 174 H (70-110) mg/dL Total Protein (6.3-8.2) g/dL Albumin (3.5-5.0) g/dL 06/21/25 Range/Units 03:02 MCHC (32.0-37.0) g/dL RDW (11.5-14.5) % Immature Gran # (0.00-0.04) 10*3/uL BUN 20 H (7-17) mg/dL Creatinine 1.15 H (0.52-1.04) mg/dL Glucose 103 H (74-99) mg/dL POC Glucose (mg/dL) (70-110) mg/dL Total Protein 5.9 L (6.3-8.2) g/dL Albumin 2.9 L (3.5-5.0) g/dL Microbiology - Last 24 Hours (Table) 06/18/25 15:00 Blood Culture - Preliminary Blood 06/19/25 14:43 Gram Stain - Preliminary Buttock Wound Culture - Preliminary Escherichia coli Enterococcus faecalis Staphylococcus epidermidis Assessment and Plan (1) Stage II pressure ulcer of left buttock Current Visit: Yes Status: Acute Code(s): L89.322 - PRESSURE ULCER OF LEFT BUTTOCK, STAGE 2 SNOMED Code(s): 58966066490273 (2) Stage II pressure ulcer of right buttock Current Visit: Yes Status: Acute Code(s): L89.312 - PRESSURE ULCER OF RIGHT BUTTOCK, STAGE 2 SNOMED Code(s): 19479891846450 (3) Type 2 diabetes mellitus with other skin ulcer Current Visit: Yes Status: Acute Code(s): E11.622 - TYPE 2 DIABETES MELLITUS WITH OTHER SKIN ULCER; L98.499 - NON-PRESSURE CHRONIC ULCER OF SKIN OF SITES W UNSP SEVERITY SNOMED Code(s): 098083880376899
--- NOTE | 2025-06-21 13:52 | P.PN ---
Subjective Patient is seen for follow-up for CKD. No significant complaints today. Serum creatinine is 1.15 and potassium is 4.9 today. Maintained on IV vancomycin Objective - Vital Signs Vital signs: Vital Signs Temp 97.6 F 06/21/25 07:30 Pulse 89 06/21/25 07:30 Resp 18 06/21/25 07:30 BP 120/73 06/21/25 07:30 Pulse Ox 100 06/21/25 09:27 FiO2 Intake & Output 06/20/25 06/21/25 06/21/25 18:59 06:59 18:59 Weight 118.5 kg Other: Voiding Method External Catheter Toilet Toilet # Voids 1 1 - Exam Patient is awake, comfortable, no acute distress. Examination of the heart S1 and S2 Examination of the lungs decreased breath sounds at the bases Abdomen is soft nontender Examination of lower extremity shows no significant edema - Labs CBC & Chem 7: 06/21/25 03:02 06/21/25 03:02 Labs: Abnormal Lab Results - Last 24 Hours (Table) 06/20/25 06/20/25 06/21/25 Range/Units 17:00 20:02 03:02 MCHC 30.9 L (32.0-37.0) g/dL RDW 15.9 H (11.5-14.5) % Immature Gran # 0.23 H (0.00-0.04) 10*3/uL BUN (7-17) mg/dL Creatinine (0.52-1.04) mg/dL Glucose (74-99) mg/dL POC Glucose (mg/dL) 177 H 174 H (70-110) mg/dL Total Protein (6.3-8.2) g/dL Albumin (3.5-5.0) g/dL 06/21/25 Range/Units 03:02 MCHC (32.0-37.0) g/dL RDW (11.5-14.5) % Immature Gran # (0.00-0.04) 10*3/uL BUN 20 H (7-17) mg/dL Creatinine 1.15 H (0.52-1.04) mg/dL Glucose 103 H (74-99) mg/dL POC Glucose (mg/dL) (70-110) mg/dL Total Protein 5.9 L (6.3-8.2) g/dL Albumin 2.9 L (3.5-5.0) g/dL Microbiology - Last 24 Hours (Table) 06/18/25 15:00 Blood Culture - Preliminary Blood 06/19/25 14:43 Gram Stain - Preliminary Buttock Wound Culture - Preliminary Escherichia coli Enterococcus faecalis Staphylococcus epidermidis Assessment and Plan Assessment: 1. Chronic Kidney Disease stage 3, cr. 1.3 mg/dl on admission, seems to be around baseline, cr. in 2023 fluctuates 1.0-1.8. Most likely episodes of acute kidney injury at that time. UA + WBC/ RBC, WBC clumps ,no imaging. 2. Hyperkalemia, on Entresto and Aldactone , improved post medical management 3. Sacral ulcer/ left LE ulcer, started on broad spectrum antibiotics 4. UTI , on antibiotics , urine cx no growth after 18 hours Plan: Monitor vancomycin levels closely Repeat labs in a.m. Continue to hold Aldactone and Entresto due to hyperkalemia
[2025-06-21 16:44] VITALS: BMI 43.4
[2025-06-21 17:22] LABS: Glucose,Whole Blood 134 mg/dL (70-110)
[2025-06-21 20:09] LABS: Glucose,Whole Blood 137 mg/dL (70-110)
[2025-06-21] MEDS: VANCOMYCIN TROUGH DUE 1 EACH MISC MISCELLANE ONE (22:15)
[2025-06-22 04:22] LABS: African American GFR (CKD) 58 (>60 ml/min/1.73 sqM); Non-African American GFR(CKD) 50 (>60 ml/min/1.73 sqM)
[2025-06-22 06:22] LABS: Glucose,Whole Blood 86 mg/dL (70-110)
[2025-06-22 08:41] LABS: Basophils # (A) 0.03 10*3/uL (0.00-0.10); Basophils % (A) 0.4 %; Eosinophils # (A) 0.32 10*3/uL (0.04-0.35); Eosinophils % (A) 4.4 %; HCT 42.1 % (37.2-46.3); HGB 12.9 g/dL (12.0-15.0); Lymphocytes # (A) 1.52 10*3/uL (0.90-5.00); Lymphocytes % (A) 20.8 %; MCH 27.9 pg (27.0-32.0); MCHC 30.6 g/dL (32.0-37.0); MCV 91.1 fL (80.0-97.0); Monocytes # (A) 0.77 10*3/uL (0.20-1.00); Monocytes % (A) 10.5 %; Neutrophils # (A) 4.52 10*3/uL (1.80-7.70); Neutrophils % (A) 62.0 %; Platelet Count 228 10*3/uL (140-440); RBC 4.62 10*6/uL (4.10-5.20); RDW 16.1 % (11.5-14.5); WBC 7.30 10*3/uL (4.50-10.00)
[2025-06-22 09:03] LABS: African American GFR (CKD) 57 (>60 ml/min/1.73 sqM); Anion Gap 4 mmol/L; Blood Urea Nitrogen 18 mg/dL (7-17); Calcium 8.5 mg/dL (8.4-10.2); Carbon Dioxide 29 mmol/L (22-30); Chloride 107 mmol/L (98-107); Glucose 75 mg/dL (74-99); Non-African American GFR(CKD) 50 (>60 ml/min/1.73 sqM); Potassium 4.2 mmol/L (3.5-5.1); Sodium 140 mmol/L (137-145)
[2025-06-22 11:09] LABS: Glucose,Whole Blood 71 mg/dL (70-110)
--- NOTE | 2025-06-22 11:41 | XR ---
EXAMINATION TYPE: XR shoulder complete RT DATE OF EXAM: 06/22/2025 11:30 AM INDICATION: Patient age:Female; 75 years old; Reason for study: shoulder pain; pain COMPARISON: Chest radiograph 06/18/2025 TECHNIQUE: The right shoulder was examined in AP, internally rotated and scapular Y projections. . FINDINGS: No evidence of acute osseous pathology, joint dislocation, or soft tissue swelling. Remote fracture d eformity of the right mid humerus with fixation plating. Osteoarthritic changes of the right shoulder with joint space narrowing and osteophytosis. AC joint arthropathy. Cervical fusion hardware. Cervic al stimulator leads identified. The remaining portions of the visualized chest are unremarkable. IMPRESSION: 1. No acute osseous pathology. 2. Remote fracture deformity of the right mid humerus with fixation plating. 3. 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. [facility], , 06/22/2025 11:38 AM
[2025-06-22] MEDS: MORPHINE SULFATE 2 MG/ML SYRINGE IVP PRN (13:17)
[2025-06-22] MEDS: MAGNESIUM SULFATE-D5W PMX 1 GM in DEXTROSE/WATER 1 100ML.BAG IVPB SCH (14:24)
--- NOTE | 2025-06-22 16:02 | P.PN ---
Subjective Progress Note Date: 06/21/25 Principal diagnosis: Reason for follow-up is bilateral gluteal infected pressure ulcer and left leg ulcer and cellulitis Patient is a 75-year-old female with a past medical history significant for Heart Failure, COPD, Diabetes Mellitus, GERD/Reflux, Hypertension, Renal Disease, Sleep Apnea/CPAP/BIPAP presenting to the hospital for evaluation of worsening pain to the bilateral gluteal pressure ulcer and also noticed to have left lower extremity ulcer and cellulitis. On today's evaluation that is 06/21/2025, patient has been afebrile, patient is breathing comfortably and is currently on room air, patient denies having any chest pain and cough, patient denies nausea vomiting or diarrhea and no abdominal pain denies any worsening pain to the abdomen or the left lower extremity wound. Patient white count is 7.28, creatinine is 1.15 Objective - Vital Signs Vital signs: Vital Signs Temp 97.6 F 06/21/25 07:30 Pulse 89 06/21/25 07:30 Resp 18 06/21/25 07:30 BP 120/73 06/21/25 07:30 Pulse Ox 100 06/21/25 09:27 FiO2 Intake & Output 06/20/25 06/21/25 06/21/25 18:59 06:59 18:59 Weight 118.5 kg Other: Voiding Method External Catheter Toilet Toilet # Voids 1 1 - Exam GENERAL DESCRIPTION: An elderly female lying in bed in no distress RESPIRATORY SYSTEM: Unlabored breathing , decreased breath sounds at bases HEART: S1 S2 regular rate and rhythm , ABDOMEN: Soft , no tenderness EXTREMITIES: Left leg swelling redness slightly decreased - Labs CBC & Chem 7: 06/22/25 08:00 06/22/25 07:57 Labs: Abnormal Lab Results - Last 24 Hours (Table) 06/20/25 06/20/25 06/21/25 Range/Units 17:00 20:02 03:02 MCHC 30.9 L (32.0-37.0) g/dL RDW 15.9 H (11.5-14.5) % Immature Gran # 0.23 H (0.00-0.04) 10*3/uL BUN (7-17) mg/dL Creatinine (0.52-1.04) mg/dL Glucose (74-99) mg/dL POC Glucose (mg/dL) 177 H 174 H (70-110) mg/dL Total Protein (6.3-8.2) g/dL Albumin (3.5-5.0) g/dL 06/21/25 Range/Units 03:02 MCHC (32.0-37.0) g/dL RDW (11.5-14.5) % Immature Gran # (0.00-0.04) 10*3/uL BUN 20 H (7-17) mg/dL Creatinine 1.15 H (0.52-1.04) mg/dL Glucose 103 H (74-99) mg/dL POC Glucose (mg/dL) (70-110) mg/dL Total Protein 5.9 L (6.3-8.2) g/dL Albumin 2.9 L (3.5-5.0) g/dL Microbiology - Last 24 Hours (Table) 06/18/25 15:00 Blood Culture - Preliminary Blood 06/19/25 14:43 Gram Stain - Preliminary Buttock Wound Culture - Preliminary Escherichia coli Enterococcus faecalis Staphylococcus epidermidis Assessment and Plan (1) Pressure ulcer Current Visit: Yes Status: Acute Code(s): L89.90 - PRESSURE ULCER OF UNSPECIFIED SITE, UNSPECIFIED STAGE SNOMED Code(s): 7364376675 (2) Penicillin allergy Current Visit: Yes Status: Acute Code(s): Z88.0 - ALLERGY STATUS TO PENICILLIN SNOMED Code(s): 38790572 Plan: 1patient with bilateral gluteal stage III pressure ulcer with some purulent drainage concerning for wound infection and cellulitis and will need to cover for both gram-positive as well as gram-negative pathogen 2-patient also have a left lower extremity superficial ulceration and secondary cellulitis. 3did have a positive UA with minimal symptom of urinary burning, urine culture has been negative 4patient did have penicillin allergy that would limit the number of antibiotic safe to use 5patient to continue local care with [facility] followed by moist dressing 6patient will be treated with vancomycin pharmacy to dose and cefepime while waiting for the culture to finalize to determine discharge antibiotics Dictation was produced using [employer] dictation software. please excuse any grammatical, word or spelling errors. Time with Patient: Less than 30
--- NOTE | 2025-06-22 16:03 | P.PN ---
Subjective Progress Note Date: 06/22/25 Principal diagnosis: Reason for follow-up is bilateral gluteal infected pressure ulcer and left leg ulcer and cellulitis Patient is a 75-year-old female with a past medical history significant for Heart Failure, COPD, Diabetes Mellitus, GERD/Reflux, Hypertension, Renal Disease, Sleep Apnea/CPAP/BIPAP presenting to the hospital for evaluation of worsening pain to the bilateral gluteal pressure ulcer and also noticed to have left lower extremity ulcer and cellulitis. On today's evaluation that is 06/22/2025, Patient is afebrile this morning patient denies having any chest pain shortness of breath or cough, the patient is currently on room air, patient denies any abdominal pain no diarrhea no nausea no vomiting Patient white count is down to 13.96, creatinine is 3.7 blood and catheter cultures so far negative Objective - Vital Signs Vital signs: Vital Signs Temp 97.7 F 06/22/25 08:00 Pulse 88 06/22/25 08:00 Resp 18 06/22/25 08:00 BP 130/71 06/22/25 08:00 Pulse Ox 98 06/22/25 08:00 FiO2 Intake & Output 06/21/25 06/22/25 06/22/25 18:59 06:59 18:59 Weight 118.5 kg 118.5 kg Other: Voiding Method Toilet Toilet Toilet # Voids 2 2 - Exam GENERAL DESCRIPTION: An elderly female lying in bed in no distress RESPIRATORY SYSTEM: Unlabored breathing , decreased breath sounds at bases HEART: S1 S2 regular rate and rhythm , ABDOMEN: Soft , no tenderness bilateral gluteal wound as shown improvement with no slough tissue or surrounding redness EXTREMITIES: Left leg swelling redness slightly decreased no drainage - Labs CBC & Chem 7: 06/22/25 08:00 06/22/25 07:57 Labs: Abnormal Lab Results - Last 24 Hours (Table) 06/21/25 06/21/25 06/22/25 Range/Units 17:20 20:07 03:21 MCHC (32.0-37.0) g/dL RDW (11.5-14.5) % Immature Gran # (0.00-0.04) 10*3/uL BUN (7-17) mg/dL Creatinine 1.08 H (0.52-1.04) mg/dL POC Glucose (mg/dL) 134 H 137 H (70-110) mg/dL 06/22/25 06/22/25 Range/Units 07:57 08:00 MCHC 30.6 L (32.0-37.0) g/dL RDW 16.1 H (11.5-14.5) % Immature Gran # 0.14 H (0.00-0.04) 10*3/uL BUN 18 H (7-17) mg/dL Creatinine 1.09 H (0.52-1.04) mg/dL POC Glucose (mg/dL) (70-110) mg/dL Microbiology - Last 24 Hours (Table) 06/19/25 14:43 Anaerobic Culture - Preliminary Buttock 06/19/25 14:43 Gram Stain - Final Buttock Wound Culture - Final Escherichia coli Enterococcus faecalis Staphylococcus epidermidis 06/18/25 15:00 Blood Culture - Preliminary Blood Assessment and Plan (1) Pressure ulcer Current Visit: Yes Status: Acute Code(s): L89.90 - PRESSURE ULCER OF UNSPE CIFIED SITE, UNSPECIFIED STAGE SNOMED Code(s): 2422351710 (2) Penicillin allergy Current Visit: Yes Status: Acute Code(s): Z88.0 - ALLERGY STATUS TO PENICILLIN SNOMED Code(s): 08282156 Plan: 1patient with bilateral gluteal stage III pressure ulcer with some purulent drainage concerning for wound infection and cellulitis and will need to cover for both gram-positive as well as gram-negative pathogen 2-patient also have a left lower extremity superficial ulceration and secondary cellulitis. 3did have a positive UA with minimal symptom of urinary burning, urine culture has been negative 4patient did have penicillin allergy that would limit the number of antibiotic safe to use 5patient to continue local care with [facility] followed by moist dressing 6patient local culture finalized with E. coli and Enterococcus faecalis and staph epi, will advise IV Rocephin and daptomycin on discharge as we do not have any oral option because of her allergies and drug interaction prescription were provided to the case management social worker Dictation was produced using [employer] software. please excuse any grammatical, word or spelling errors.
[2025-06-22 16:57] LABS: Glucose,Whole Blood 102 mg/dL (70-110)
--- NOTE | 2025-06-22 17:53 | P.PN ---
Subjective Progress Note Date: 06/22/25 Hospital Course: Patient is a 75-year-old female with past medical history of heart failure, COPD, DVT M, GERD/reflux, hypertension, renal disease, sleep apnea/CPAP/BiPAP presenting to the hospital for evaluation of worsening pain to the bilateral gluteal pressure ulcer and also noted to have left lower extremity ulcer and cellulitis. During hospital stay, patient was found to have sacral wound infection and UTI. Subjective: No acute events overnight. Patient reports having continued sacral pain. She continues to want to go home. Rehab was once again discussed with patient and she continues to deny rehab placement and wants to go home, stating that she is fully self-sufficient at home. Patient was moved by physical therapy and nursing, where she is min assist/supervision for bed mobility and modified independence with ambulation with a walker. During subsequent rounds, she reported having right shoulder pain. She states that she had a fall 2 weeks ago and since then the pain has been present. She denies having any abdominal pain, chest pain, headache, dizziness, nausea, vomiting, fevers. Pertinent positives and negatives as discussed above, a complete review of systems was performed and all other systems are negative. Vitals Signs Reviewed. 93% on room air. Patient was hemodynamically stable otherwise General: Nontoxic, acutely distressed/in pain, appears at stated age Derm: Warm, dry Head: Atraumatic, normocephalic, symmetric Eyes: EOMI, no lid lag Mouth: No lip lesion, mucus membranes moist Cardiovascular: S1S2 reg, no murmur Lungs: CTA bilateral, no rhonchi, no rales, no accessory muscle use Abdominal: Soft, diffuse abdominal pain to palpation, no guarding, Ext: No gross muscle atrophy, no edema, no contractures MSK: Range of motion limited in right shoulder to 90 degrees with adduction, passive range of motion also limited due to pain LUE grossly 5/5 strength Neuro: CN II-XI grossly intact, no focal neuro deficits Psych: Alert, oriented, appropriate affect Data Reviewed Today: Pertinent Labs: Creatinine 1.09, magnesium 1.9, potassium 4.2 Imaging: No new imaging to discuss Assessment and Plan: Active: # Infected superficial sacral ulcer, grade 3 # Left lower extremity venous ulcer - Wound culture with susceptibilities returned, pending ID recommendations - Continue IV Vanco, cefepime (monitor renal function Cr: 1.09 06/22) - Wound care consulted, appreciating recs - ID consulted, appreciating recs - Pain management: - Casar 10 - Morphine 2 mg IV every 4 as needed - Discontinued morphine 4 mg IV as needed - Patient is not interested in rehab at this time # UTI - Continue IV Vanco, cefepime - ID following # Right shoulder pain - Order right shoulder x-ray # Hyperkalemia - Potassium: 4.2 06/22 - Ma.7 06/20 - Repleted magnesium 06/22 - Nephrology following, appreciating recs - Holding home Aldactone, Entresto per nephrology recommendation # Generalized weakness - PT/OT consulted # Insulin-dependent diabetes mellitus - Humalog insulin SQ sliding scale - Lantus 49 units subcu at bedtime - Accu-Cheks ACHS, hypoglycemic precautions - A1c 10.3 Chronic: CKD stage III: Baseline creatinine 1.12 HFrEF (not in exacerbation): Held home Entresto 49 to 51 mg daily, held Aldactone 25 mg daily, continue Toprol-XL 25 mg daily, continue Farxiga LEONCIO: Continue ferrous sulfate 325 mg p.o. daily with 500 mg vitamin C Depression/anxiety: Continue Cymbalta 60 mg daily, buspirone 10 mg p.o. twice daily as needed Hyperlipidemia: Continue atorvastatin 40 mg at bedtime PAD: Continue aspirin 81 mg daily Urinary incontinence: Continue Flomax 0.4 mg daily, continue Topamax 50 mg p.o. at bedtime Neuropathy: Continue Lyrica DVT ppx: Heparin 500 units SQ every 8 Code status: Full code Anticipated discharge place: Home Anticipated discharge time: Tomorrow pending PICC line placement Ting Rivera MD PGY-1 I saw and evaluated the patient during the smith and critical portions of this encounter, and discussed the case in detail with the resident author of this note, I agree with the Assessment and Plan, and my changes, if any, are highlighted in blue. Objective - Vital Signs Vital signs: Vital Signs Temp 97.5 F L 06/22/25 14:00 Pulse 80 06/22/25 14:00 Resp 17 06/22/25 14:00 BP 118/62 06/22/25 14:00 Pulse Ox 94 L 06/22/25 14:00 FiO2 Intake & Output 06/21/25 06/22/25 06/22/25 18:59 06:59 18:59 Intake Total 120 Balance 120 Weight 118.5 kg 118.5 kg Intake: Oral 120 Other: Voiding Method Toilet Toilet Toilet # Voids 2 2 1 - Labs CBC & Chem 7: 06/22/25 08:00 06/22/25 07:57 Labs: Abnormal Lab Results - Last 24 Hours (Table) 06/21/25 06/21/25 06/22/25 Range/Units 17:20 20:07 03:21 MCHC (32.0-37.0) g/dL RDW (11.5-14.5) % Immature Gran # (0.00-0.04) 10*3/uL BUN (7-17) mg/dL Creatinine 1.08 H (0.52-1.04) mg/dL POC Glucose (mg/dL) 134 H 137 H (70-110) mg/dL 06/22/25 06/22/25 Range/Units 07:57 08:00 MCHC 30.6 L (32.0-37.0) g/dL RDW 16.1 H (11.5-14.5) % Immature Gran # 0.14 H (0.00-0.04) 10*3/uL BUN 18 H (7-17) mg/dL Creatinine 1.09 H (0.52-1.04) mg/dL POC Glucose (mg/dL) (70-110) mg/dL Microbiology - Last 24 Hours (Table) 06/19/25 14:43 Anaerobic Culture - Preliminary Buttock 06/19/25 14:43 Gram Stain - Final Buttock Wound Culture - Final Escherichia coli Enterococcus faecalis Staphylococcus epidermidis 06/18/25 15:00 Blood Culture - Preliminary Blood
--- NOTE | 2025-06-22 17:57 | P.PN ---
Subjective Patient is seen for follow-up for CKD. No significant complaints today. Serum creatinine is 1.0 and potassium is 4.2 today. Maintained on IV vancomycin Objective - Vital Signs Vital signs: Vital Signs Temp 97.5 F L 06/22/25 14:00 Pulse 80 06/22/25 14:00 Resp 17 06/22/25 14:00 BP 118/62 06/22/25 14:00 Pulse Ox 94 L 06/22/25 14:00 FiO2 Intake & Output 06/21/25 06/22/25 06/22/25 18:59 06:59 18:59 Intake Total 120 Balance 120 Weight 118.5 kg 118.5 kg Intake: Oral 120 Other: Voiding Method Toilet Toilet Toilet # Voids 2 2 1 - Exam Patient is awake, comfortable, no acute distress. Examination of the heart S1 and S2 Examination of the lungs decreased breath sounds at the bases Abdomen is soft nontender Examination of lower extremity shows no significant edema - Labs CBC & Chem 7: 06/22/25 08:00 06/22/25 07:57 Labs: Abnormal Lab Results - Last 24 Hours (Table) 06/21/25 06/22/25 06/22/25 Range/Units 20:07 03:21 07:57 MCHC (32.0-37.0) g/dL RDW (11.5-14.5) % Immature Gran # (0.00-0.04) 10*3/uL BUN 18 H (7-17) mg/dL Creatinine 1.08 H 1.09 H (0.52-1.04) mg/dL POC Glucose (mg/dL) 137 H (70-110) mg/dL 06/22/25 Range/Units 08:00 MCHC 30.6 L (32.0-37.0) g/dL RDW 16.1 H (11.5-14.5) % Immature Gran # 0.14 H (0.00-0.04) 10*3/uL BUN (7-17) mg/dL Creatinine (0.52-1.04) mg/dL POC Glucose (mg/dL) (70-110) mg/dL Microbiology - Last 24 Hours (Table) 06/19/25 14:43 Anaerobic Culture - Preliminary Buttock 06/19/25 14:43 Gram Stain - Final Buttock Wound Culture - Final Escherichia coli Enterococcus faecalis Staphylococcus epidermidis 06/18/25 15:00 Blood Culture - Preliminary Blood Assessment and Plan Assessment: 1. Chronic Kidney Disease stage 3, cr. 1.3 mg/dl on admission, seems to be around baseline, cr. in 2023 fluctuates 1.0-1.8. Most likely episodes of acute kidney injury at that time. UA + WBC/ RBC, WBC clumps ,no imaging. 2. Hyperkalemia, on Entresto and Aldactone , improved post medical management 3. Sacral ulcer/ left LE ulcer, started on broad spectrum antibiotics 4. UTI , on antibiotics , urine cx no growth so far. Plan: Monitor vancomycin levels closely Repeat labs in a.m. Continue to hold Aldactone and Entresto due to hyperkalemia
[2025-06-22 20:34] LABS: Glucose,Whole Blood 123 mg/dL (70-110)
[2025-06-23 06:20] LABS: Glucose,Whole Blood 63 mg/dL (70-110)
[2025-06-23 06:44] LABS: Glucose,Whole Blood 56 mg/dL (70-110)
[2025-06-23 07:20] LABS: Glucose,Whole Blood 90 mg/dL (70-110)
[2025-06-23 11:48] LABS: Glucose,Whole Blood 99 mg/dL (70-110)
--- NOTE | 2025-06-23 12:18 | P.PN ---
Subjective Patient is seen in follow-up for acute kidney injury on chronic kidney disease. Renal function stable. Admits to good urine output. Denies chest pain or shortness of breath. Vital signs are stable. General: No acute distress. HEENT: Head exam is unremarkable. LUNGS: No audible rhonchi or wheezes. HEART: Rate and Rhythm are regular. ABDOMEN: Non-tender. Obese. EXTREMITITES: No edema. Left lower extremity wound noted. No drainage. Objective - Vital Signs Vital signs: Vital Signs Temp 97.3 F L 06/23/25 07:10 Pulse 90 06/23/25 08:00 Resp 18 06/23/25 08:00 BP 146/79 06/23/25 07:10 Pulse Ox 92 L 06/23/25 08:39 FiO2 Intake & Output 06/22/25 06/23/25 06/23/25 18:59 06:59 18:59 Intake Total 120 Balance 120 Weight 82 kg Intake: Oral 120 Other: Voiding Method Toilet Toilet Toilet # Voids 1 1 - Labs CBC & Chem 7: 06/22/25 08:00 06/22/25 07:57 Labs: Abnormal Lab Results - Last 24 Hours (Table) 06/22/25 06/23/25 06/23/25 Range/Units 20:33 06:18 06:43 POC Glucose (mg/dL) 123 H 63 L 56 L (70-110) mg/dL Assessment and Plan Plan: Assessment: 1. Chronic kidney disease stage IIIa with GFR at baseline. 2. Hyperkalemia secondary to Entresto and Aldactone. Improved. 3. Left lower extremity wounds and sacral ulcers on antibiotics. Plan: Entresto and Aldactone held. Avoid nephrotoxins. Continue to monitor renal function and urine output.
--- NOTE | 2025-06-23 15:46 | P.PN ---
Subjective Progress Note Date: 06/23/25 Principal diagnosis: Reason for follow-up is bilateral gluteal infected pressure ulcer and left leg ulcer and cellulitis Patient is a 75-year-old female with a past medical history significant for Heart Failure, COPD, Diabetes Mellitus, GERD/Reflux, Hypertension, Renal Disease, Sleep Apnea/CPAP/BIPAP presenting to the hospital for evaluation of worsening pain to the bilateral gluteal pressure ulcer and also noticed to have left lower extremity ulcer and cellulitis. On today's evaluation that is 06/23/2025,the patient denies any fever or any chills, patient is breathing comfortably on room air, the patient denies chest pain shortness of breath and no significant cough, patient denies abdominal pain, no nausea vomiting or diarrhea. Has been complaining of mostly her allergies and she did not get any allergy medication. No new lab has been obtained today Objective - Vital Signs Vital signs: Vital Signs Temp 97.3 F L 06/23/25 07:10 Pulse 90 06/23/25 08:00 Resp 18 06/23/25 08:00 BP 146/79 06/23/25 07:10 Pulse Ox 92 L 06/23/25 08:39 FiO2 Intake & Output 06/22/25 06/23/25 06/23/25 18:59 06:59 18:59 Intake Total 120 Balance 120 Weight 82 kg Intake: Oral 120 Other: Voiding Method Toilet Toilet Toilet # Voids 1 1 - Exam GENERAL DESCRIPTION: An elderly female lying in bed in no distress RESPIRATORY SYSTEM: Unlabored breathing , decreased breath sounds at bases HEART: S1 S2 regular rate and rhythm , ABDOMEN: Soft , no tenderness bilateral gluteal wound as shown improvement with no slough tissue or surrounding redness EXTREMITIES: Left leg swelling redness slightly decreased no drainage - Labs CBC & Chem 7: 06/22/25 08:00 06/22/25 07:57 Labs: Abnormal Lab Results - Last 24 Hours (Table) 06/22/25 06/23/25 06/23/25 Range/Units 20:33 06:18 06:43 POC Glucose (mg/dL) 123 H 63 L 56 L (70-110) mg/dL Assessment and Plan (1) Pressure ulcer Current Visit: Yes Status: Acute Code(s): L89.90 - PRESSURE ULCER OF UNSPECIFIED SITE, UNSPECIFIED STAGE SNOMED Code(s): 5228749658 (2) Penicillin allergy Current Visit: Yes Status: Acute Code(s): Z88.0 - ALLERGY STATUS TO PENICILLIN SNOMED Code(s): 51780073 Plan: 1patient with bilateral gluteal stage III pressure ulcer with some purulent drainage concerning for wound infection and cellulitis and will need to cover for both gram-positive as well as gram-negative pathogen 2-patient also have a left lower extremity superficial ulceration and secondary cellulitis. 3did have a positive UA with minimal symptom of urinary burning, urine culture has been negative 4patient did have penicillin allergy that would limit the number of antibiotic safe to use 5patient to continue local care with Medihoney followed by moist dressing 6patient local culture finalized with E. coli and Enterococcus faecalis and staph epi, 7patient is currently being treated IV Rocephin and daptomycin and finished her course of Rocephin and daptomycin at discharge prescription were provided to patient case coordinator yesterday Dictation was produced using [employer] dictation software. please excuse any grammatical, word or spelling errors. Time with Patient: Less than 30
[2025-06-23 16:48] LABS: Glucose,Whole Blood 155 mg/dL (70-110)
--- NOTE | 2025-06-23 18:56 | P.PN ---
Subjective Progress Note Date: 06/23/25 Hospital Course: Patient is a 75-year-old female with past medical history of heart failure, COPD, DVT M, GERD/reflux, hypertension, renal disease, sleep apnea/CPAP/BiPAP presenting to the hospital for evaluation of worsening pain to the bilateral gluteal pressure ulcer and also noted to have left lower extremity ulcer and cellulitis. During hospital stay, patient was found to have sacral wound infection and UTI. Subjective: Overnight patient's glucose dropped to 56. Patient was given oral sugar and glucose returned to 90 30 minutes later. No other acute events overnight. Patient was very tired this morning and did not want to participate in physical exam or receiving updates. Discussion was had with nursing. Patient remained stable. Pertinent positives and negatives as discussed above, a complete review of systems was performed and all other systems are negative. Vitals Signs Reviewed. 93% on 3 L nasal cannula. Patient was hemodynamically stable otherwise Physical exam was limited by patient participation. General: Nontoxic, acutely distressed/in pain, appears at stated age Derm: Warm, dry Head: Atraumatic, normocephalic, symmetric Eyes: EOMI Mouth: No lip lesion, mucus membranes moist Lungs: No accessory muscle use Abdominal: Soft, diffuse mild abdominal pain to palpation, no guarding Ext: No gross muscle atrophy, no edema, no contractures Neuro: CN II-XI grossly intact, no focal neuro deficits Psych: Alert, oriented, appropriate affect Data Reviewed Today: Pertinent Labs: [id number] glucose: 63 0618, 56 0643, 90 0718 Magnesium 2.2 Imaging: Shoulder x-ray 06/22 1130 1. No acute osseous pathology 2. Remote fracture deformity of the right mid humerus with fixation plating 3. 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 Assessment and Plan: Active: # Infected superficial sacral ulcer, grade 3 # Left lower extremity venous ulcer - Wound culture with susceptibilities returned - Wound care consulted, appreciating recs - ID consulted, appreciating recs - Continue Dapto 350 mg IV every 24 hours and Rocephin 2 g IV every 24 hours per ID - PICC line placed per ID - Pain management: - [place] 10 every 6 as needed - Morphine 2 mg IV every 4 as needed - Patient is not interested in rehab at this time # UTI - Continue Rocephin 2 g daily IV - ID following # Right shoulder pain - No acute process noted on x-ray 06/22 - Continue to monitor, managed with current pain # Hyperkalemia - Potassium: 4.2 06/22 - Ma.2 06/23 - Repleted magnesium 06/22 - Nephrology following, appreciating recs - Holding home Aldactone, Entresto per nephrology recommendation # Generalized weakness - PT/OT consulted # Insulin-dependent diabetes mellitus - Humalog insulin SQ sliding scale - Changed Lantus to 30 units subcu at bedtime - Accu-Cheks ACHS, hypoglycemic precautions - A1c 10.3 Chronic: CKD stage III: Baseline creatinine 1.12 HFrEF (not in exacerbation): Held home Entresto 49 to 51 mg daily, held Aldactone 25 mg daily, continue Toprol-XL 25 mg daily, continue Farxiga LEONCIO: Continue ferrous sulfate 325 mg p.o. daily with 500 mg vitamin C Depression/anxiety: Continue Cymbalta 60 mg daily, buspirone 10 mg p.o. twice daily as needed Hyperlipidemia: Continue atorvastatin 40 mg at bedtime PAD: Continue aspirin 81 mg daily Urinary incontinence: Continue Flomax 0.4 mg daily, continue Topamax 50 mg p.o. at bedtime Neuropathy: Continue Lyrica DVT ppx: Heparin 500 units SQ every 8 Code status: Full code Anticipated discharge place: Home Anticipated discharge time: Tomorrow pending case management for home IV antibiotics Ting Rivera MD PGY-1 I have seen and evaluated the patient today. Discussed with the resident and agree with the residents finding and plan as documented in the resident's note. Changes highlighted in blue font. Objective - Vital Signs Vital signs: Vital Signs Temp 97.9 F 06/23/25 00:57 Pulse 90 06/23/25 00:57 Resp 19 06/23/25 00:57 BP 111/63 06/23/25 00:57 Pulse Ox 91 L 06/23/25 00:57 FiO2 Intake & Output 06/22/25 06/23/25 06/23/25 18:59 06:59 18:59 Intake Total 120 Balance 120 Weight 82 kg Intake: Oral 120 Other: Voiding Method Toilet Toilet # Voids 1 1 - Labs CBC & Chem 7: 06/22/25 08:00 06/22/25 07:57 Labs: Abnormal Lab Results - Last 24 Hours (Table) 06/22/25 06/22/25 06/22/25 Range/Units 07:57 08:00 20:33 MCHC 30.6 L (32.0-37.0) g/dL RDW 16.1 H (11.5-14.5) % Immature Gran # 0.14 H (0.00-0.04) 10*3/uL BUN 18 H (7-17) mg/dL Creatinine 1.09 H (0.52-1.04) mg/dL POC Glucose (mg/dL) 123 H (70-110) mg/dL 06/23/25 06/23/25 Range/Units 06:18 06:43 MCHC (32.0-37.0) g/dL RDW (11.5-14.5) % Immature Gran # (0.00-0.04) 10*3/uL BUN (7-17) mg/dL Creatinine (0.52-1.04) mg/dL POC Glucose (mg/dL) 63 L 56 L (70-110) mg/dL
[2025-06-23 20:48] LABS: Glucose,Whole Blood 119 mg/dL (70-110)
[2025-06-23] MEDS: INSULIN GLARGINE (LANTUS) 100 UNIT/ML SYR SQ SCH (21:30)
[2025-06-24 06:15] LABS: Glucose,Whole Blood 121 mg/dL (70-110)
[2025-06-24 08:10] LABS: Basophils # (A) 0.06 X 10*3/uL (0.00-0.10); Basophils % (A) 1.0 %; Eosinophils # (A) 0.23 X 10*3/uL (0.04-0.35); Eosinophils % (A) 3.8 %; HCT 45.7 % (37.2-46.3); HGB 13.3 g/dL (12.0-15.0); Immature Grans, Automated 2.30 %; Lymphocytes # (A) 1.75 X 10*3/uL (0.90-5.00); Lymphocytes % (A) 28.9 %; MCH 26.9 pg (27.0-32.0); MCHC 29.1 g/dL (32.0-37.0); MCV 92.3 FL (80.0-97.0); Monocytes # (A) 0.68 X 10*3/uL (0.20-1.00); Monocytes % (A) 11.2 %; NRBC Per 100 WBC 0 X 10*3/uL (0.00-0.01); Neutrophils # (A) 3.20 X 10*3/uL (1.80-7.70); Neutrophils % (A) 52.8 %; Platelet Count 220 X 10*3/uL (140-440); RBC 4.95 X 10*6/uL (4.10-5.20); RDW 16.3 % (11.5-14.5); WBC 6.06 X 10*3/uL (4.50-10.00)
[2025-06-24 08:32] LABS: Anion Gap 8.90 mmol/L (4.00-12.00); BUN/Creat Ratio 12.60 Ratio (12.00-20.00); Blood Urea Nitrogen 12.6 mg/dL (9.0-27.0); Calcium 8.7 mg/dL (8.7-10.3); Carbon Dioxide 27.1 mmol/L (21.6-31.8); Chloride 106 mmol/L (96-109); Glucose 116 mg/dL (70-110); Magnesium 2.2 mg/dL (1.5-2.4); Potassium 4.5 mmol/L (3.5-5.5); Sodium 142 mmol/L (135-145)
[2025-06-24 09:27] VITALS: BP 145/62; PULSE 85; RESP 16; TEMP 97.5
--- NOTE | 2025-06-24 10:11 | P.PN ---
Subjective Patient is seen in follow-up for acute kidney injury on chronic kidney disease. Renal function stable. Admits to good urine output. Denies chest pain or shortness of breath. No active complaints. Vital signs are stable. General: No acute distress. HEENT: Head exam is unremarkable. LUNGS: No audible rhonchi or wheezes. HEART: Rate and Rhythm are regular. ABDOMEN: Non-tender. Obese. EXTREMITITES: No edema. Left lower extremity wound noted. No drainage. Objective - Vital Signs Vital signs: Vital Signs Temp 97.5 F L 06/24/25 07:01 Pulse 85 06/24/25 07:01 Resp 16 06/24/25 07:01 BP 145/62 06/24/25 07:01 Pulse Ox 98 06/24/25 07:01 FiO2 Intake & Output 06/23/25 06/24/25 06/24/25 18:59 06:59 18:59 Weight 82.5 kg Other: Voiding Method Toilet Toilet # Voids 3 2 - Labs CBC & Chem 7: 06/24/25 04:30 06/24/25 04:22 Labs: Abnormal Lab Results - Last 24 Hours (Table) 06/23/25 06/23/25 06/24/25 Range/Units 16:47 20:47 04:22 MCH (27.0-32.0) pg MCHC (32.0-37.0) g/dL RDW (11.5-14.5) % Immature Gran # (0.00-0.04) X 10*3/uL Est GFR (CKD-EPI) 58 L (>=60) Glucose 116 H (70-110) mg/dL POC Glucose (mg/dL) 155 H 119 H (70-110) mg/dL 06/24/25 06/24/25 Range/Units 04:30 06:13 MCH 26.9 L (27.0-32.0) pg MCHC 29.1 L (32.0-37.0) g/dL RDW 16.3 H (11.5-14.5) % Immature Gran # 0.14 H (0.00-0.04) X 10*3/uL Est GFR (CKD-EPI) (>=60) Glucose (70-110) mg/dL POC Glucose (mg/dL) 121 H (70-110) mg/dL Microbiology - Last 24 Hours (Table) 06/18/25 15:00 Blood Culture - Final Blood 06/19/25 14:43 Anaerobic Culture - Final Buttock Assessment and Plan Plan: Assessment: 1. Chronic kidney disease stage IIIa with GFR at baseline. 2. Hyperkalemia secondary to Entresto and Aldactone. Improved. 3. Left lower extremity wounds and sacral ulcers on antibiotics. Plan: Entresto and Aldactone held. Avoid nephrotoxins. Continue to monitor renal function and urine output. Can increase frequency of metoprolol to twice daily if blood pressure staying persistently above systolic 140.
[2025-06-24 11:35] LABS: Glucose,Whole Blood 152 mg/dL (70-110)
--- NOTE | 2025-06-24 15:47 | P.DS ---
Providers Date of admission: 06/18/25 16:14 Attending physician: Peng Dee MD Consults: 06/18/25 16:05 Consult Physician Urgent Consulting Provider: Anais Mcgraw Consult Reason/Comments: Hyperkalemia Do you want consulting provider notified?: Yes, Notify in am 06/19/25 10:12 Consult Physician Routine Consulting Provider: Paco Ortiz Consult Reason/Comments: sacaral ulcer, uti Do you want consulting provider notified?: Yes Primary care physician: Physician Nonstaff Hospital Course: Discharge Diagnosis: # Infected superficial sacral ulcer, grade 3 # Left lower extremity venous ulcer # UTI # Right shoulder pain # Hyperkalemia # Generalized weakness # Insulin-dependent diabetes mellitus Chronic: # CKD stage III # Heart failure with reduced ejection fraction # Iron deficiency anemia # Hyperlipidemia # Depression/anxiety # Peripheral artery disease # Urinary incontinence # Neuropathy Hospital Course: Patient is a 75-year-old female with past medical history of heart failure, CO PD, DVT M, GERD/reflux, hypertension, renal disease, sleep apnea/CPAP/BiPAP presenting to the hospital for evaluation of worsening pain to the bilateral gluteal pressure ulcer and also noted to have left lower extremity ulcer and cellulitis. Patient was found to have hyperkalemia at admission which was corrected by holding home Aldactone and Entresto. During hospital stay, patient was found to have sacral wound infection and UTI. Wound care, infectious disease, and nephrology were consulted. Patient was originally treated with vancomycin plus cefepime pending wound culture susceptibilities. Renal function was monitored, with no concerns. Patient was changed to daptomycin and Rocephin. Per ID, patient was discharged with a PICC line for continued IV antibiotics at home. Patient had 1 episode of mild hypoglycemia, Lantus was changed from 49 units to 30 units subcu at bedtime. Patient was advised to go to a rehab facility, but patient denied necessity and wanted to return home. Patient was discharged in stable condition. Due to hyperkalemia at admission, patient home Entresto and Aldactone were discontinued at discharge. Consider increasing frequency of metoprolol to twice daily if blood pressure stays above 140 systolic per nephrology. Patient seen and examined at bedside. Vital signs reviewed and stable. Patient satting 93% on 3 L nasal cannula, same as home regimen. General: Nontoxic, acutely distressed/in pain, appears at stated age Derm: Warm, dry, bandaged wound on left lower extremity, sacral ulcer bandaged Head: Atraumatic, normocephalic, symmetric Eyes: EOMI, no lid lag Mouth: No lip lesion, mucus membranes moist Cardiovascular: S1S2 reg, no murmur Lungs: CTA bilateral, no rhonchi, no rales, no accessory muscle use Abdominal: Soft, diffuse abdominal pain to palpation, no guarding, Ext: No gross muscle atrophy, no edema, no contractures MSK: Range of motion limited in right shoulder to 90 degrees with adduction, passive range of motion also limited due to pain LUE grossly 5/5 strength Neuro: CN II-XI grossly intact, no focal neuro deficits Psych: Alert, oriented, appropriate affect Ting Rivera MD PGY-1 A total of 30 minutes of time were spent preparing this complex discharge summary. Patient was discharged on 06/24/2025. I have seen and evaluated the patient today. Discussed with the resident and agree with the residents finding and plan as documented in the resident's note. Changes highlighted in blue font. Patient Condition at Discharge: Stable Plan - Discharge Summary Discharge Rx Participant: No New Discharge Prescriptions: New Ascorbic Acid [Vitamin C] 500 mg PO DAILY #90 tab DAPTOmycin [Cubicin] 350 mg IVPB Q24H 10 Days each cefTRIAXone [Rocephin] 2 gm IVPB Q24HR@1600 10 Days each Continue rOPINIRole HCL [Requip] 2 mg PO QID HYDROcodone/APAP 10-325MG [[place] 10-325] 1 tab PO Q6HR PRN PRN Reason: Pain Montelukast [Singulair] 10 mg PO HS Pantoprazole Sodium [Protonix] 40 mg PO BID #60 tablet. Mirabegron [Myrbetriq] 50 mg PO DAILY Tamsulosin [Flomax] 0.4 mg PO DAILY Cinnamon Bark [Cinnamon] 2,000 mg PO DAILY@1200 Dapagliflozin Propanediol [Farxiga] 10 mg PO DAILY #30 tab Metoprolol Succinate (ER) [Toprol XL] 25 mg PO DAILY #30 tab Miconazole 2% Powder 1 applic TOPICAL BID Aspirin EC [Ecotrin Low Dose] 81 mg PO DAILY QUEtiapine [SEROquel] 100 mg PO HS Topiramate [Topamax] 50 mg PO HS busPIRone HCl [Buspar] 10 mg PO BID PRN PRN Reason: Anxiety Atorvastatin [Lipitor] 40 mg PO HS DULoxetine HCL [Cymbalta] 60 mg PO DAILY Ferrous Sulfate [Iron (65 MG Elemental)] 325 mg PO W/BRKFST Isosorbide Mononitrate ER [Imdur] 30 mg PO DAILY Pregabalin [Lyrica] 200 mg PO BID Changed Insulin Glargine,Hum.rec.anlog [Lantus Solostar Pen] 30 units SQ HS@1999 #0 Discontinued tiZANidine [Zanaflex] 4 mg PO BID PRN PRN Reason: Muscle Spasm Sacubitril/Valsartan [Entresto 49 mg-51 mg Tablet] 1 tab PO BID Spironolactone [Aldactone] 25 mg PO DAILY Discharge Medication List HYDROcodone/APAP 10-325MG [[place] 10-325] 1 tab PO Q6HR PRN 06/17/14 [History] rOPINIRole HCL [Requip] 2 mg PO QID 06/17/14 [History] Montelukast [Singulair] 10 mg PO HS 06/17/18 [History] Pantoprazole Sodium [Protonix] 40 mg PO BID #60 tablet. 02/08/19 [Rx] Cinnamon Bark [Cinnamon] 2,000 mg PO DAILY@1200 02/05/24 [History] Mirabegron [Myrbetriq] 50 mg PO DAILY 02/05/24 [History] Tamsulosin [Flomax] 0.4 mg PO DAILY 02/05/24 [History] busPIRone HCl [Buspar] 10 mg PO BID PRN 02/05/24 [History] Dapagliflozin Propanediol [Farxiga] 10 mg PO DAILY #30 tab 02/07/24 [Rx] Metoprolol Succinate (ER) [Toprol XL] 25 mg PO DAILY #30 tab 02/07/24 [Rx] Aspirin EC [Ecotrin Low Dose] 81 mg PO DAILY 06/18/25 [History] Atorvastatin [Lipitor] 40 mg PO HS 06/18/25 [History] DULoxetine HCL [Cymbalta] 60 mg PO DAILY 06/18/25 [History] Ferrous Sulfate [Iron (65 MG Elemental)] 325 mg PO W/BRKFST 06/18/25 [History] Isosorbide Mononitrate ER [Imdur] 30 mg PO DAILY 06/18/25 [History] Miconazole 2% Powder 1 applic TOPICAL BID 06/18/25 [History] Pregabalin [Lyrica] 200 mg PO BID 06/18/25 [History] QUEtiapine [SEROquel] 100 mg PO HS 06/18/25 [History] Topiramate [Topamax] 50 mg PO HS 06/18/25 [History] Ascorbic Acid [Vitamin C] 500 mg PO DAILY #90 tab 06/24/25 [Rx] DAPTOmycin [Cubicin] 350 mg IVPB Q24H 10 Days each 06/24/25 [Rx] Insulin Glargine,Hum.rec.anlog [Lantus Solostar Pen] 30 units SQ HS@2000 #0 06/24/25 [Rx] cefTRIAXone [Rocephin] 2 gm IVPB Q24HR@1600 10 Days each 06/24/25 [Rx] Follow up Appointment(s)/Referral(s): [facility] [NON-STAFF] - 1 Week Leonie Robert [Family Provider] - 1 Week (Office is not answering at time of discharge. Please call for follow-up appointment.) [facility], [REFERRING] - 1 Week Paco Ortiz MD [STAFF PHYSICIAN] - 07/05/25 3:45 pm Patient Instructions/Handouts: How to Prevent Pressure Injuries (DC) Activity/Diet/Wound Care/Special Instructions: Please see PCP and ID. Discharge Disposition: HOME WITH HOME HEALTH SERVICES
--- NOTE | 2025-06-25 15:19 | P.PN ---
Subjective Progress Note Date: 06/24/25 Principal diagnosis: Reason for follow-up is bilateral gluteal infected pressure ulcer and left leg ulcer and cellulitis Patient is a 75-year-old female with a past medical history significant for Heart Failure, COPD, Diabetes Mellitus, GERD/Reflux, Hypertension, Renal Disease, Sleep Apnea/CPAP/BIPAP presenting to the hospital for evaluation of worsening pain to the bilateral gluteal pressure ulcer and also noticed to have left lower extremity ulcer and cellulitis. On today's evaluation that is 06/24/2025,the patient remains to be afebrile, patient is on room air not requiring supplemental oxygen and mentioned breathing comfortably with no chest pain or cough.Patient denies having any nausea or vomiting, no abdominal pain and no diarrhea has been reported, pain to the sacral wound has decreased in intensity. Patient would count 6.06, creatinine is 1.0 Objective - Vital Signs Vital signs: Vital Signs Temp 97.5 F L 06/24/25 07:01 Pulse 85 06/24/25 08:00 Resp 16 06/24/25 08:00 BP 145/62 06/24/25 07:01 Pulse Ox 98 06/24/25 07:01 FiO2 Intake & Output 06/23/25 06/24/25 06/24/25 18:59 06:59 18:59 Weight 82.5 kg Other: Voiding Method Toilet Toilet Toilet # Voids 3 2 - Exam GENERAL DESCRIPTION: An elderly female lying in bed in no distress RESPIRATORY SYSTEM: Unlabored breathing , decreased breath sounds at bases HEART: S1 S2 regular rate and rhythm , ABDOMEN: Soft , no tenderness bilateral gluteal wound as shown improvement with no slough tissue or surrounding redness EXTREMITIES: Left leg swelling redness slightly decreased no drainage - Labs CBC & Chem 7: 06/24/25 04:30 06/24/25 04:22 Labs: Abnormal Lab Results - Last 24 Hours (Table) 06/23/25 06/23/25 06/24/25 Range/Units 16:47 20:47 04:22 MCH (27.0-32.0) pg MCHC (32.0-37.0) g/dL RDW (11.5-14.5) % Immature Gran # (0.00-0.04) X 10*3/uL Est GFR (CKD-EPI) 58 L (>=60) Glucose 116 H (70-110) mg/dL POC Glucose (mg/dL) 155 H 119 H (70-110) mg/dL 06/24/25 06/24/25 06/24/25 Range/Units 04:30 06:13 11:33 MCH 26.9 L (27.0-32.0) pg MCHC 29.1 L (32.0-37.0) g/dL RDW 16.3 H (11.5-14.5) % Immature Gran # 0.14 H (0.00-0.04) X 10*3/uL Est GFR (CKD-EPI) (>=60) Glucose (70-110) mg/dL POC Glucose (mg/dL) 121 H 152 H (70-110) mg/dL Microbiology - Last 24 Hours (Table) 06/18/25 15:00 Blood Culture - Final Blood 06/19/25 14:43 Anaerobic Culture - Final Buttock Assessment and Plan (1) Pressure ulcer Status: Acute Code(s): L89.90 - PRESSURE ULCER OF UNSPECIFIED SITE, UNSPECIFIED STAGE SNOMED Code(s): 4380482295 (2) Penicillin allergy Status: Acute Code(s): Z88.0 - ALLERGY STATUS TO PENICILLIN SNOMED Code(s): 96760789 Plan: 1patient with bilateral gluteal stage III pressure ulcer with some purulent drainage concerning for wound infection and cellulitis and will need to cover for both gram-positive as well as gram-negative pathogen 2-patient also have a left lower extremity superficial ulceration and secondary cellulitis. 3did have a positive UA with minimal symptom of urinary burning, urine culture has been negative 4patient did have penicillin allergy that would limit the number of antibiotic safe to use 5patient to continue local care with [facility] followed by moist dressing 6patient local culture finalized with E. coli and Enterococcus faecalis and s [facility] epi, 7patient advised a 10-day course of IV Rocephin and daptomycin to finish her course of therapy and close outpatient follow-up Dictation was produced using [employer] dictation software. please excuse any grammatical, word or spelling errors. Time with Patient: Less than 30
== END 2025-06-24 13:49 | disposition home health service (06) | DRG 593 ==
LOC: EC 13:46 → 3SCARD 16:14 → 4SSUR 06-19 15:32
PROVIDERS: ADMIT Family Medicine; ATTEND Family Medicine
PROC: 02HV33Z Insertion of Infusion Device into Superior Vena Cava, Percutaneous Approach (ICD-10-PCS; principal; 2025-06-22 11:50)
DX: L89.153 Pressure ulcer of sacral region, stage 3 (principal); I13.0 Hypertensive heart and chronic kidney disease with heart failure and stage 1 through stage 4 chronic kidney disease, or unspecified chronic kidney disease; L89.312 Pressure ulcer of right buttock, stage 2; L89.322 Pressure ulcer of left buttock, stage 2; I50.20 Unspecified systolic (congestive) heart failure; I83.029 Varicose veins of left lower extremity with ulcer of unspecified site; D50.9 Iron deficiency anemia, unspecified; E11.22 Type 2 diabetes mellitus with diabetic chronic kidney disease; J44.9 Chronic obstructive pulmonary disease, unspecified; N18.31 Chronic kidney disease, stage 3a; F32.A Depression, unspecified; L97.929 Non-pressure chronic ulcer of unspecified part of left lower leg with unspecified severity; N39.0 Urinary tract infection, site not specified; L03.116 Cellulitis of left lower limb; N17.9 Acute kidney failure, unspecified; E11.40 Type 2 diabetes mellitus with diabetic neuropathy, unspecified; E11.51 Type 2 diabetes mellitus with diabetic peripheral angiopathy without gangrene; E11.622 Type 2 diabetes mellitus with other skin ulcer; Z79.4 Long term (current) use of insulin; E11.649 Type 2 diabetes mellitus with hypoglycemia without coma; E87.5 Hyperkalemia; E78.5 Hyperlipidemia, unspecified; F41.9 Anxiety disorder, unspecified; R32 Unspecified urinary incontinence; Z79.82 Long term (current) use of aspirin; Z91.040 Latex allergy status; Z88.0 Allergy status to penicillin; Z91.041 Radiographic dye allergy status; Z87.891 Personal history of nicotine dependence; Z79.899 Other long term (current) drug therapy; Z79.84 Long term (current) use of oral hypoglycemic drugs; Z90.710 Acquired absence of both cervix and uterus
CPT/HCPCS: 36415; 36573; 71046; 80048; 80053; 80202; 81001; 82565; 83036; 83605; 83735; 84132; 84484; 85025; 85610; 85730; 87040; 87070; 87075; 87077; 87086; 87186; 87205; 93005; 94760; 96365; 96367; 96375; 99291